=== PATIENT | female | born 1960 | race Caucasian/White ===

== ENCOUNTER 2024-06-02 15:21 | Outpatient (RCR) | payer BC, SELFPAY | END 2024-07-20 20:55 | disposition home or self-care (01) | LOC: OT 15:21 | PROVIDERS: PCP Nurse Practitioner; Visit Provider Nurse Practitioner Family | DX: M25.432 Effusion, left wrist (principal) | CPT/HCPCS: 97014; 97018; 97110; 97140; 97166; 97530 ==

== ENCOUNTER 2024-07-21 10:47 | Outpatient (RCR) | payer BC, SELFPAY | END 2024-07-22 15:15 | disposition home or self-care (01) | LOC: OT 10:47 | PROVIDERS: PCP Nurse Practitioner; Visit Provider Nurse Practitioner Family | DX: M25.432 Effusion, left wrist (principal) ==

== ENCOUNTER 2024-08-12 02:35 | Emergency (ER) | payer BC, SELFPAY ==
[2024-08-12] VITALS (22 sets, daily range): BP systolic 134–151; BP diastolic 78–86; PULSE 90–103; TEMP 36.6; O2SAT 88–99; BMI 21.1
--- OUTSIDE RECORDS SUMMARY | 2024-08-12 02:43 | XMS_ITS | CCD ---
Author Organization [facility] Team Providers Care Manager Etl Name Role Phone YOLA HERR Admitting Unavailable HERR, YOLA Attending Unavailable HERR, YOLA Primary Care Unavailable ED DIXON Consulting Unavailable HERR, YOLA Consulting Unavailable HERR, YOLA Admitting Unavailable HERR, YOLA Attending Unavailable HERR, YOLA Primary Care Unavailable MAX, DR IRVING Bacon Consulting Unavailable Ziebjorgito, DR Rivera Consulting Unavailable HERR, YOLA Consulting Unavailable HERR, YOLA Admitting Unavailable HERRYOLA Attending Unavailable HERR, YOLA Primary Care Unavailable HERR, YOLA Consulting Unavailable HERR, YOLA Admitting Unavailable HERR, YOLA Attending Unavailable HERR, YOLA Primary Care Unavailable YOLA HERR Attending Unavailable YOLA HERR Referring Unavailable KORI HERRE Hernando Primary Care Unavailable Nemesio, RODYC Yola Villagomez Primary Care Provider MD Apurva Martinez Emergency Provider MD Randell Ledbetter Emergency Provider Yola Herr Primary Care Unavailable Randell Ledbetter Attending Unavailable Randell Ledbetter Admitting Unavailable Apurva Martinez Admitting Unavailable Yola Herr Primary Care Unavailable Apurva Martinez Attending Unavailable Yola Ureña Unavailable Unallocated , Noms Provider Primary Care Provi jany Nemesio CUSHION PADDER-Yola SALAMANCA Primary Care Provid er YOLA HERR Referring Unavailable YOLA HERR Primary Care Unavailable YOLA HERR Referring Unavailable YOLA HERR Primary Care Unavailable YOLA HERR Referring Unavailable YOLA HERR Primary Care Unavailable YOLA HERR Referring Unavailable YOLA HERR Primary Care Unavailable Unallocated Hubert BRADLEYs Provider Primary Care Brooki jany CARMEN YAP Attending Unavailable FRACISCO, CARMEN Jacinto Attending Unavailable CARMEN YAP Referring Unavailable ISABELLA LOZOYA Attending Unavailable CARMEN YAP Referring Unavailable CARMEN YAP Attending Unavailable ISBAELLA LOZOYA Attending Unavailable CARMEN YAP Attending Unavailable ISABELLA LOZOYA Attending Unavailable IRENE FENG Attending Unavailable IRENE FENG Referring Unavailable Medications Current Medications Medication Drug Class(es) Dates Sig (Normalized) Sig (Original) amLODIPine 10 mg / benazepril hydrochloride 40 mg oral capsule (20 sources) Dihydropyridine Calcium Channel Susu, Angiotensin Converting Enzyme Inhibitor Start: 06-14-2024 take 1 capsule by mouth once in the morning amLODIPine-benaz epril (LOTREL) 10-40 mg per capsule Indications: Benign essential HTN TAKE 1 CAPSULE BY MOUTH IN THE MORNING 90 capsule 1 06/14/2024 Active Start: 03-24-2024 take 1 capsule by [facility] once daily Amlodipine-Benazepril Active 1 CAP PO Daily March 24, 2024 12:00am Start: 11-17-2023 amLODIPine-dania azepril (Lotrel) 10-40 MG capsule 1 capsule 11/17/2023 Active Start: 11-17-2023 End: 06-14-2024 take 1 capsule by mouth once in the morning amLODIPine-benazepril (LOTREL) 10-40 mg per capsule Indications: Benign essential HTN take 1 capsule by mouth in the morning 90 capsule 1 11/17/2023 06/14/2024 Discontinued betamethasone 0.5 mg/ml topical cream (19 sources) Corticosteroid Start: 04-12-2024 betamethasone dipropionate 0.05 % cream Indications: Allergic contact dermatitis, unspecified trigger Apply to affected areas, up to twice a day when flared, do not use one the face, groin, or underarms, 30 day supply 45 g 2 04/12/2024 Active cephalexin 500 mg oral capsule (2 sources) Cephalosporin Antibacterial Start: 03-24-2024 take 500 mg by mouth every six hours Cephalexin Active 500 MG PO Every 6 hours 07 12March 24, 2024 12:00am escitalopram 20 mg oral tablet (20 sources) Serotonin Reuptake Inhibitor Start: 06-14-2024 take 1 tablet by mouth once daily escitalopram (LEXAPRO) 20 mg tablet Indications: Anxiety and depression TAKE 1 TABLET BY MOUTH DAILY 90 tablet 1 06/14/2024 Active Start: 11-17-2023 End: 06-14-2024 escitalopram (Lexapro) 20 MG tablet Daily 11/17/2023 Active fluocinonide 1 mg/ml topical cream (1 source) Corticosteroid Start: 03-28-2024 Fluocinonide Active 1 APPLIC TOPICAL Twice daily March 28, 2024 12:00am fluticasone propionate 0.05 mg/actuat metered dose nasal spray (1 source) Corticosteroid Start: 04-19-2019 take 1 spray(s) nasal route once daily fluticasone propionate (FLONASE) 50 mcg/actuation nasal spray Indications: Pharyngitis, unspecified etiology Administer 1 spray into each nostril daily. 15.8 mL 2 04/19/2019 Active ibuprofen 800 mg oral tablet (20 sources) Nonsteroidal Anti-inflammatory Drug Start: 07-29-2022 ibuprofen 800 MG tablet Every 8 hours 03/28/2024 Active predniSONE 20 mg oral tablet (1 source) Start: 07-22-2024 End: 07-31-2024 take 2 tablets by mouth once daily, then take 1 tablet by mouth once daily at mealtime predniSONE (Deltasone) 20 MG tablet Indications: Polyarthralgia , Effusion of left knee Take 2 tablets (40 mg) by mouth Daily for 5 days, THEN 1 tablet (20 mg) Daily for 5 days. Take with food. 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) Apply 1 application topically Daily Apply to hands once a day until clear then prn for flares/30 days 60 g 11 06/10/2024 Active Start: 05-11-2024 End: 06-10-2024 Tapinarof (Vtama) 1 % cream Indications: Rash and other nonspecific skin eruption Apply 1 application topically Daily Apply to affected areas on the trunk and extremities 60 g 1 05/11/2024 06/10/2024 Discontinued (Reorder) Start: 05-11-2024 Tapinarof (Vta ma) 1 % cream Indications: Rash and other nonspecific skin eruption Apply 1 application topically Daily Apply to affected areas on the trunk and extremities 60 g 1 05/11/2024 Active Completed/Discontinued Medications Medication Drug Class(es) Dates Sig (Normalized) Sig (Original) acetaminophen 325 mg / oxyCODONE hydrochloride 5 mg oral tablet (6 sources) Opioid Agonist Start: End: oxyCODONE-acetaminophe n (Percocet) 5-325 MG tablet Daily at bedtime 03/28/2024 04/12/2024 Discontinued (Med list cleanup) 1 ml methylPREDNISolone acetate 40 mg/ml injection (20 sources) Corticosteroid Start: End: methylPREDNISolone acetate (DEPO-Medrol) injection 40 mg Start: 07-19-2024 End: 07-19-2024 40 mg, Intra-articular, Once PRN Procedure, Starting on Fri07/19/24 at 0300, For 1 dose Start: 05-24-2024 End: 07-19-2024 methylPREDNISolone (Medrol D ospak) 4 MG tablets Indications: Swelling of left wrist , Arthritis of left wrist Follow schedule on package instructions 21 tablet 05/24/2024 07/19/2024 Discontinued Start: 05-24-2024 methylPREDNISo lone (Medrol Dospak) 4 MG tablets Indications: Swelling of left wrist , Arthritis of left wrist Follow schedule on package instructions 21 tablet 05/24/2024 Active Start: 04-12-2024 End: 04-12-2024 methylPREDNISolone Acetate ( DEPO-Medrol) injection 20 mg Start: 04-12-2024 End: 04-12-2024 20 mg, Intra-articular, Once PRN Procedure, Starting on Fri04/12/24 at 0952, For 1 dose Start: 03-29-2024 End: 04-12-2024 methylPREDNISolone (Medrol D ospak) 4 MG tablets Indications: Swelling of left wrist , Arthritis of left wrist Follow schedule on package instructions 21 tablet 03/29/2024 04/12/2024 Discontinued (Med list cleanup) Start: 03-29-2024 methylPREDNISo lone (Medrol Dospak) 4 MG tablets Indications: Swelling of left wrist , Arthritis of left wrist Follow schedule on package instructions 21 tablet 03/29/2024 Active Problems Active Problems Problem Classification Problem Date Documented Date Episodic/Chronic Allergic reactions (2 sources) Allergic contact dermatitis; Translations: [Allergic contact dermatitis, unspecified cause] 04-12-2024 Episodic Anxiety disorders (6 sources) Anxiety disorder, unspecified; Translations: [Anxiety] Onset: 02-20-2017 03-24-2024 Chronic Essential hypertension (7 sources) Essential (primary) hypertension; Translations: [Hypertensive disorder] Onset: 02-24-2017 03-24-2024 Chronic Menopausal disorders (1 source) Menopausal syndrome; Translations: [Menopausal and female climacteric states] Onset: 07-25-2018 07-25-2018 Chronic Mood disorders (1 source) Depression Onset: 12-02-2023 Chronic Osteoarthritis (14 sources) Arthritis of first carpometacarpal joint of left hand; Translations: [Unilateral primary osteoarthritis of first carpometacarpal joint, left hand] 04-19-2024 Chronic Other bone disease and musculoskeletal deformities (1 source) Other specified disorders of bone density and structure, right thigh; Translations: [OTH D/O BONE DEN STRUCT RT THIGH] Onset: 07-01-2022 Episodic Other connective tissue disease (1 source) Other specified soft tissue disorders; Translations: [Other specified soft tissue disorders] Onset: 03-24-2024 Episodic Other connective tissue disease (2 sources) Ganglion cyst of left wrist; Translations: [Ganglion, left wrist] 05-24-2024 Episodic Other inflammatory condition of skin (2 sources) Pustular psoriasis of palm of hand; 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 Other non-traumatic joint disorders (2 sources) Swelling of wrist joint; Translations: [Effusion, left wrist] 03-24-2024 Episodic Other non-traumatic joint disorders (4 sources) Effusion, left wrist; Translations: [Effusion of joint, forearm] 03-24-2024 Episodic Other non-traumatic joint disorders (1 source) Pain in wrist; Translations: [Pain in left wrist] 03-28-2024 Episodic Other non-traumatic joint disorders (1 source) Pain in left wrist; Translations: [Pain in left wrist] Onset: 03-28-2024 Episodic Other non-traumatic joint disorders (8 sources) Pain of left wrist; Translations: [Pain in left wrist] 04-19-2024 Episodic Other non-traumatic joint disorders (10 sources) Swelling of upper limb; Translations: [Effusion, left wrist] 04-19-2024 Episodic Other non-traumatic joint disorders (2 sources) Pain in left knee; Translations: [Pain in joint, lower leg] 07-18-2024 Episodic Other non-traumatic joint disorders (3 sources) Effusion of joint of left knee; Translations: [Effusion, left knee] 07-19-2024 Episodic Other non-traumatic joint disorders (3 sources) Multiple joint pain; Translations: [Pain in unspecified joint] 07-19-2024 Episodic Other screening for suspected conditions (not mental disorders or infectious disease) (6 sources) Encounter for screening mammogram for malignant neoplasm of breast; Translations: [Patient encounter status] Onset: 07-25-2018 07-25-2018 Episodic Other skin disorders (1 source) Vesicular eczema; Translations: [Dyshidrosis [pompholyx]] 03-28-2024 Episodic Other skin disorders (2 sources) Eruption; Translations: [Rash and other nonspecific skin eruption] 05-03-2024 Episodic Residual codes; unclassified (5 sources) Asymptomatic menopausal state; Translations: [ASYMPTOMATIC MENOPAUSAL STATE] Onset: 06-27-2022 Episodic Residual codes; unclassified (1 source) Family history of malignant neoplasm of other respiratory and intrathoracic organs; Translations: [FAM HX MAL NEOPLSM OTH RESP AND IT ORGN] Onset: 07-01-2022 Episodic Residual codes; unclassified (1 source) Family history of malignant neoplasm of digestive organs; Translations: [FAM HX MALIG NEOPLASM DIGESTIV ORGN] Onset: 07-01-2022 Episodic Residual codes; unclassified (1 source) Family history of malignant neoplasm of other organs or systems; Translations: [FAM HX MALIG NEOPLASM OTH ORGN/SYS] Onset: 07-01-2022 Episodic Residual codes; unclassified (1 source) Tobacco use; Translations: [TOBACCO USE] Onset: 06-19-2022 Episodic Skin and subcutaneous tissue infections (2 sources) Cellulitis of left upper limb; Translations: [Cellulitis of left upper limb] 03-24-2024 Episodic Spondylosis; intervertebral disc disorders; other back problems (1 source) Spondylosis without myelopathy or radiculopathy, lumbosacral region; Translations: [SPONDYLS W/O MYELO-/RADICULOP LS] Onset: 12-14-2021 Chronic Substance-related disorders (5 sources) Nicotine dependence, cigarettes, uncomplicated; Translations: [NICOTINE DEPEND CIGARETTES UNCOMP] Onset: 06-14-2022 Chronic Unclassified (2 sources) Effusion of joint of left knee 07-20-2024 Past or Other Problems Problem Classification Problem Date Documented Da te Episodic/Chronic Mood disorders (2 sources) Mood disorders; Translations: [Depression, unspecified] Onset: 02-20-2017 12-02-2023 Other connective tissue disease (1 source) Pain in right leg; Translations: [PAIN IN RIGHT LEG] Onset: 12-14-2021 Episodic Residual codes; unclassified (1 source) Tobacco use and exposure - finding; Translations: [Tobacco use] Onset: 07-25-2018 07-25-2018 Episodic Residual codes; unclassified (1 source) Menopause present; Translations: [Asymptomatic menopausal state] Onset: 08-30-2019 08-30-2019 Episodic Screening and history of mental health and substance abuse codes (1 source) Personal history of nicotine dependence; Translations: [Personal history of nicotine dependence] Onset: 01-23-2024 Episodic Spondylosis; intervertebral disc disorders; other back problems (4 sources) Radiculopathy, lumbar region; Translations: [RADICULOPATHY LUMBAR REGION] Onset: 12-10-2021 Episodic Unclassified (1 source) Onset: 12-02-2023 12-02-2023 Results Test Name Value Interpretation Reference Range Facility XR Knee - left 1 or 2 Viewso n 07-20-2024 Imaging Result: AP and Lateral Left knee weight bearing. No acute fracture or dislocation. Large effusion Joint space narrowing medial compartment near symmetric to right knee. Impression: no acute bony process with joint space narrowing and large joint effusion [facility] No Panel Informationon 07-19 LACEY Jimenez 07/20/2024 9:04 AM L Inj/Asp: L knee on 07/19/2024 3:00 AM Indications: pain, joint swelling and diagnostic evaluation Details: 22 G needle, anterolateral approach Medications: 40 mg methylPREDNISolone acetate 40 MG/ML Aspirate: 16 mL cloudy and yellow (Unable to see through. ) Outcome: tolerated well, no immediate complications UTILIZING ASEPTIC TECHNIQUE LEFT KNEE JOINT ASPIRATION PREFORMED, NO CORTISONE GIVEN WITH JOINT APPEARING CLOUDY, NEUROVASC INTACT S/P INJ, TOLERATED WELL Procedure, treatment alternatives, risks and benefits explained, specific risks discussed. Consent was given by the patient. Patient was prepped and draped in the usual sterile fashion. [facility] XR Knee - left 1 or 2 Viewso n 07-19-2024 Radiology Study observation (narrative) [facility] DEXA SCAN CENTRAL SKELETALon 07-05-2024 DEXA SCAN CENTRAL SKELETAL DEXA SCAN CENTRAL SKELETAL CLINICAL INFORMATION: Encounter for screening for osteoporosis; Asymptomatic menopausal state. , Post menopausal, TECHNIQUE: Dual X-ray Absorptiometry (DXA) was performed. COMPARISON: No relevant prior studies available. FINDINGS: LUMBAR SPINE (L2-L4): BMD is 0.94 gm/cm2. T-score is -2.2. LEFT FEMORAL NECK: BMD is 0.78 gm/cm2. T-score is -1.9. LEFT TOTAL FEMUR: BMD is 0.78 gm/cm2. T-score is -1.8. RIGHT FEMORAL NECK: BMD is 0.79 gm/cm2. T-score is -1.8. RIGHT TOTAL FEMUR: BMD is 0.73 gm/cm2. T-score is -2.2. The estimated 10-year probability for a major osteoporotic fracture (utilizing FRAX) is 17.2% and for a hip fracture is 3.8%. IMPRESSION: The exam is considered to be osteopenic by the National Osteoporosis Foundation guidelines. Recommend consideration for initiation of therapy. WHO CLASSIFICATION: Normal: T-score -1.0 or above Osteopenia: T-score -1.1 to < 2.5 Osteoporosis: T-score -2.5 or lower Secondary causes of bone loss should be evaluated if clinically indicated since the etiology of low BMD cannot be determined by BMD measurement alone. The current National Osteoporosis Foundation guide recommends treating patients with FRAX ten year risk scores of greater than or equal to 3% for hip fracture or greater than or equal to 20% for major osteoporotic fracture, to reduce their fracture risk. Finalized by Rito Marquez MD on 07/05/2024 4:41 PM Normal [facility] No Panel Informationon 05-03 Type of biopsy: tangential Informed consent: discussed and consent obtained Informed consent comment: The risks and benefits of the biopsy were discussed. Risks include but are not limited to bleeding, infection, scarring, pain, and nerve damage. An opportunity to ask questions prior to the procedure was permitted and all questions were answered. Patient was prepped and draped in usual sterile fashion: area cleansed with alcohol. Anesthesia: the lesion was anesthetized in a standard fashion Anesthetic: 1% lidocaine w/ epinephrine 1-100,000 buffered w/ 8.4% NaHCO3 Instrument used: DermaBlade Hemostasis achieved with: electrodesiccation Outcome: patient tolerated procedure well Outcome comment: The specimen was placed in a prelabeled formalin container to be sent for pathology Post-procedure details: sterile dressing applied and wound care instructions given Post-procedure details comment: Emphasized need to contact clinic for any signs of infection, uncontrollable bleeding, or complications. Dressing type: bandage Additional details: Photo taken yes Amount of lidocaine used: 0.6 cc The Micro XR Wrist - left 3 Viewson Imaging Result: April 12, 2024 x-rays AP lateral and oblique of the left wrist demonstrate dorsal plate fixation of the distal radius. The plate is intact without signs of loosening or failure. On the oblique/ [facility] view there is marked sclerosis at the base of the trapezium at the scaphoid trapezial joint. The joint is narrowed and drng-sw-homc is noted. Impression: Pantrapezial arthritis, healed distal radius fracture. Max Preciado D.O. G3 XR Wrist - left 3 ViewsOrder ed By: Gray Preciado on 04-13-2024 G3 Work Phone: No Panel Informationon 04-12 Carmen Yap NP 04/14/2024 8:04 AM S Inj/Asp: L thumb [facility] on 04/12/2024 9:52 AM Details: 25 G needle Medications: 20 mg methylPREDNISolone Acetate 20 MG/ML Procedure, treatment alternatives, risks and benefits explained, specific risks discussed. Consent was given by the patient. [facility] Micro XR Wrist - left 3 Viewson Radiology Study observation (narrative) [facility] Automated basophil %Ordered By: Randell Ledbetter on 03-28-2024 Basophils/100 WBC (Bld) 0.7 % Normal . [facility] Comment on above: Performed By: #### E SR, CBC #### [address] Automated basophil countOrde red By: Randell Ledbetter on 03-28-2024 Basophils (Bld) [#/Vol] 0.1 10*3/uL Normal 0.0-0.2 [facility] Comment on above: Performed By: #### E SR, CBC #### [address] Automated blood monocyte cou ntOrdered By: Randell Ledbetter on 03-28-2024 Monocytes (Bld) [#/Vol] 0.5 10*3/uL Normal 0.0-0.8 [facility] Comment on above: Performed By: #### E SR, CBC #### [address] Automated eosinophil %Ordere d By: Randell Ledbetter on 03-28-2024 Eosinophils/100 WBC (Bld) 1.5 % Normal . [facility] Comment on above: Performed By: #### E SR, CBC #### [address] Automated eosinophil countOr dered By: Randell Ledbetter on 03-28-2024 Eosinophils (Bld) [#/Vol] 0.1 10*3/uL Normal 0.0-0.45 [facility] Comment on above: Performed By: #### E SR, CBC #### [address] Automated monocyte %Ordered By: Randell Ledbetter on 03-28-2024 Monocytes/100 WBC (Bld) 5.8 % Normal . [facility] Comment on above: Performed By: #### E SR, CBC #### [address] Automated neutrophil %Ordere d By: Randell Ledbetter on 03-28-2024 Neutrophils/100 WBC (Bld) 66.0 % Normal . [facility] Comment on above: Performed By: #### E SR, CBC #### [facility] [address] [place] [address] Complete Blood Count Auto Di ffon 03-28-2024 Mean Corpuscular HGB Conc 34.4 g/dL Normal 32.0-35.0 [facility] Comment on above: Performed By: #### E SR, CBC #### [facility] [address] [place] [address] Monocytes/100 WBC (Bld) 19.87 % Normal 0.00-20.00 [facility] Comment on above: Performed By: #### E SR, CBC #### [facility] [address] [place] [address] NRBC% 0.1 /100{WBC} Normal 0-0.5 [facility] Comment on above: Performed By: #### E SR, CBC #### [facility] [address] [place] [address] ECG 12 lead ECGon 03-28-2024 ECG 12 lead ECG [facility] [place] [address] Electrocardiograph Report Signed Patient: Carla Irby MR#: [id number] [birth year] : 1960 Acct:[id number] Age/Sex: 64 / F ADM Date: 03/28/24 Loc: ER Room: Type: [facility] ER Attending Dr: Ordering Provider: Randell Ledbetter MD Date of Service: 03/28/2403/13/1414 ECG/ECG 12 lead ECG: Skin/Abscess/Foreign Body Copies to: Test Reason : Blood Pressure : */* mmHG Vent. Rate : 71 BPM Atrial Rate : 71 BPM P-R Int : 204 ms QRS Dur : 86 ms QT Int : 392 ms P-R-T Axes : 54 32 25 degrees QTcB Int : 425 ms Normal sinus rhythm Cannot rule out Anterior infarct , age undetermined Abnormal ECG No previous ECGs available Confirmed by RANDELL LEDBETTER MD ([id number]) on 03/28/2024 3:51:43 PM Referred By: Electronically Signed By: RANDELL LEDBETTER MD Transcribed By: MUS Signed By Randell Ledbetter MD 03/13 1551 Normal [facility] Erythrocyte Sedimentation Ra urmila 03-28-2024 ESR (Bld) [Velocity] 20 mm/h Normal 0-29 [facility] Comment on above: Result Comment: PERF ORMED BY: [place] [address] PATHOLOGIST SOCIETY EDITOR NAFISA LO M.D. Performed By: #### E SR, CBC #### [address] Erythrocyte distribution wid th [Ratio] by Automated countOrdered By: Randell Ledbetter on 03-28-2024 Erythrocyte distribution width (RBC) [Ratio] 13.1 % Normal 11.9-15.3 [facility] Comment on above: Performed By: #### E SR, CBC #### [facility] [address] [place] [address] Erythrocyte sedimentation ra te by Photometric methodOrdered By: Randell Ledbetter on 03-28-2024 ESR Photometric method (Bld) [Velocity] 20 mm/hr 0-29 [facility] Erythrocytes [#/volume] in B lood by Automated countOrdered By: Randell Ledbetter on 03-28-2024 RBC (Bld) [#/Vol] 4.48 10*6/uL Normal 3.60-5.00 [facility] Comment on above: Performed By: #### E SR, CBC #### [address] Hematocrit [Volume Fraction] of Blood by Automated countOrdered By: Randell Ledbetter on 03-28-2024 Hematocrit (Bld) [Volume fraction] 37.9 % Normal 34.0-46.4 [facility] Comment on above: Performed By: #### E SR, CBC #### [address] Hemoglobin [Mass/volume] in BloodOrdered By: Randell Ledbetter on 03-28-2024 Hemoglobin (Bld) [Mass/Vol] 13.0 g/dL Normal 11.8-15.4 [facility] Comment on above: Performed By: #### E SR, CBC #### [address] Leukocytes [#/volume] correc amada for nucleated erythrocytes in Blood by Automated counOrdered By: Randell Ledbetter on 03-28-2024 WBC corrected for nucl RBC Auto (Bld) [#/Vol] 8.0 10*3/uL 3.8-11.6 [facility] Leukocytes [#/volume] in Blo od by Automated countOrdered By: Randell Ledbetter on 03-28-2024 WBC (Bld) [#/Vol] 8.0 10*3/uL Normal 3.8-11.6 [facility] Comment on above: Performed By: #### E SR, CBC #### [address] Lymphocytes [#/volume] in Bl ood by Automated countOrdered By: Randell Ledbetter on 03-28-2024 Lymphocytes (Bld) [#/Vol] 2.1 10*3/uL Normal 1.00-4.8 [facility] Comment on above: Performed By: #### E SR, CBC #### [address] Lymphocytes/100 leukocytes i n Blood by Automated countOrdered By: Randell Ledbetter on 03-28-2024 Lymphocytes/100 WBC (Bld) 26.0 % Normal . [facility] Comment on above: Performed By: #### E SR, CBC #### [address] MCH [Entitic mass] by Automa amada countOrdered By: Randell Ledbetter on 03-28-2024 MCH (RBC) [Entitic mass] 29.1 pg Normal 24.7-34.3 [facility] [facility] Comment on above: Performed By: #### E SR, CBC #### [address] MCHC Auto (RBC) [Mass/Vol]Or dered By: Randell Ledbetter on 03-28-2024 MCHC (RBC) [Mass/Vol] 34.4 g/dL 32.0-35.0 [facility] MCV [Entitic volume] by Auto mated countOrdered By: Randell Ledbetter on 03-28-2024 MCV (RBC) [Entitic vol] 84.7 fL Normal 80-100 F [facility] Comment on above: Performed By: #### E SR, CBC #### [facility] [address] [place] [address] Monocyte distribution width [Entitic volume] in Blood by AutomatedOrdered By: Randell Ledbetter on 03-28-2024 Monocyte distribution width Auto (Bld) [Entitic vol] 19.87 % 0.00-20.00 [facility] Neutrophils [#/volume] in Bl ood by Automated countOrdered By: Randell Ledbetter on 03-28-2024 Neutrophils (Bld) [#/Vol] 5.3 10*3/uL Normal 1.8-7.7 [facility] Comment on above: Performed By: #### E SR, CBC #### [address] Nucleated erythrocytes [Pres ence] in Blood by Automated countOrdered By: Randell Ledbetter on 03-28-2024 Nucleated RBC Auto Ql (Bld) 0.1 /100{WBC} 0-0.5 [facility] Platelet mean volume [Entiti c volume] in Blood by Automated countOrdered By: Randell Ledbetter on 03-28-2024 Platelet mean volume (Bld) [Entitic vol] 7.4 fL Normal 6.3-10.7 [facility] Comment on above: Performed By: #### E SR, CBC #### [facility] [address] [place] [address] Platelets [#/volume] in Bloo d by Automated countOrdered By: Randell Ledbetter on 03-28-2024 Platelets (Bld) [#/Vol] 327 10*3/uL Normal 150-450 [facility] Comment on above: Performed By: #### E SR, CBC #### [facility] [address] [place] [address] Automated basophil %Ordered By: Apurva Martinez on 03-24-2024 Basophils/100 WBC (Bld) 0.5 % Normal . [facility] Comment on above: Performed By: #### E SR, CBC, CRP, BMP #### [address] Automated basophil countOrde red By: Apurva Martinez on 03-24-2024 Basophils (Bld) [#/Vol] 0.0 10*3/uL Normal 0.0-0.2 [facility] Comment on above: Performed By: #### E SR, CBC, CRP, BMP #### [address] Automated blood monocyte cou ntOrdered By: Apurva Martinez on 03-24-2024 Monocytes (Bld) [#/Vol] 0.6 10*3/uL Normal 0.0-0.8 [facility] Comment on above: Performed By: #### E SR, CBC, CRP, BMP #### [address] Automated eosinophil %Ordere d By: Apurva Martinez on 03-24-2024 Eosinophils/100 WBC (Bld) 1.4 % Normal . [facility] Comment on above: Performed By: #### E SR, CBC, CRP, BMP #### [address] Automated eosinophil countOr dered By: Apurva Martinez on 03-24-2024 Eosinophils (Bld) [#/Vol] 0.1 10*3/uL Normal 0.0-0.45 [facility] Comment on above: Performed By: #### E SR, CBC, CRP, BMP #### [address] Automated monocyte %Ordered By: Apurva Martinez on 03-24-2024 Monocytes/100 WBC (Bld) 6.5 % Normal . [facility] Comment on above: Performed By: #### E SR, CBC, CRP, BMP #### [address] Automated neutrophil %Ordere d By: Apurva Martinez on 03-24-2024 Neutrophils/100 WBC (Bld) 72.6 % Normal . [facility] Comment on above: Performed By: #### E SR, CBC, CRP, BMP #### [address] Basic Metabolic Panelon Creatinine Clr Calc Pharmacy 98.37 Normal [facility] Comment on above: Performed By: #### E SR, CBC, CRP, BMP #### [address] GFR/1.73 sq M.predicted MDRD (S/P/Bld) [Vol rate/Area] mL/min/{1.73_m2} Normal [facility] Comment on above: Performed By: #### E SR, CBC, CRP, BMP #### [address] C reactive protein [Mass/vol ume] in Serum or PlasmaOrdered By: Apurva Martinez on 03-24-2024 CRP [Mass/Vol] 2.8 mg/dL High 0.0-0.5 [facility] C-Reactive Proteinon 024 C-Reactive Protein 2.8 mg/dL High 0.0-0.5 [facility] Comment on above: Result Comment: PERF ORMED BY: [place] [address] PATHOLOGIST SOCIETY EDITOR NAFISA OL M.D. Performed By: #### E SR, CBC, CRP, BMP #### [address] Calcium [Mass/volume] in Ser um or PlasmaOrdered By: Apurva Martinez on 03-24-2024 Calcium [Mass/Vol] 8.6 mg/dL Normal 8.6-10.3 [facility] Comment on above: Performed By: #### E SR, CBC, CRP, BMP #### [address] Carbon dioxide, total [Moles /volume] in Serum or PlasmaOrdered By: Apurva Martinez on 03-24-2024 CO2 [Moles/Vol] 26.6 mmol/L Normal 21.0-31.0 [facility] Comment on above: Performed By: #### E SR, CBC, CRP, BMP #### [address] Chloride [Moles/volume] in S shruthi or PlasmaOrdered By: Apurva Martinez on 03-24-2024 Chloride [Moles/Vol] 107 mmol/L Normal 98-107 [facility] Comment on above: Performed By: #### E SR, CBC, CRP, BMP #### [address] Complete Blood Count Auto Di ffon 03-24-2024 Mean Corpuscular HGB Conc 33.7 g/dL Normal 32.0-35.0 [facility] Comment on above: Performed By: #### E SR, CBC, CRP, BMP #### [address] Monocytes/100 WBC (Bld) 17.82 % Normal 0.00-20.00 [facility] Comment on above: Performed By: #### E SR, CBC, CRP, BMP #### [address] NRBC% 0.1 /100{WBC} Normal 0-0.5 [facility] Comment on above: Performed By: #### E SR, CBC, CRP, BMP #### [address] Creatinine [Mass/volume] in Serum or PlasmaOrdered By: Apurva Martinez on 03-24-2024 Creatinine [Mass/Vol] 0.60 mg/dL Normal 0.60-1.20 [facility] Comment on above: Performed By: #### E SR, CBC, CRP, BMP #### [address] Erythrocyte Sedimentation Ra urmila 03-24-2024 ESR (Bld) [Velocity] 16 mm/h Normal 0-29 [facility] Comment on above: Result Comment: PERF ORMED BY: [place] [address] PATHOLOGIST SOCIETY EDITOR NAFISA LO M.D. Performed By: #### E SR, CBC, CRP, BMP #### [facility] [address] Erythrocyte distribution wid th [Ratio] by Automated countOrdered By: Apurva Martinez on 03-24-2024 Erythrocyte distribution width (RBC) [Ratio] 13.3 % Normal 11.9-15.3 [facility] Comment on above: Performed By: #### E SR, CBC, CRP, BMP #### [facility] [address] Erythrocyte sedimentation ra te by Photometric methodOrdered By: Apurva Martinez on 03-24-2024 ESR Photometric method (Bld) [Velocity] 16 mm/hr 0-29 [facility] Erythrocytes [#/volume] in B lood by Automated countOrdered By: Apurva Martinez on 03-24-2024 RBC (Bld) [#/Vol] 4.45 10*6/uL Normal 3.60-5.00 [facility] Comment on above: Performed By: #### E SR, CBC, CRP, BMP #### [address] Glucose [Mass/volume] in Ser um or PlasmaOrdered By: Apurva Martinez on 03-24-2024 Glucose [Mass/Vol] 110 mg/dL High 70-100 [facility] Comment on above: ADA recommended refe rence rangeRandom Glucose Reference Range is dependent on time and content of last meal. Glucose of more than 200 mg/dL in a nonstressed, ambulatory subject supports the diagnosis of Diabetes Mellitus. Result Comment: [place] om Glucose Reference Range is dependent on time and content of last meal. Glucose of more than 200 mg/dL in a nonstressed, ambulatory subject supports the diagnosis of Diabetes Mellitus. ADA recommended reference range Performed By: #### E SR, CBC, CRP, BMP #### [address] Hematocrit [Volume Fraction] of Blood by Automated countOrdered By: Apurva Martinez on 09-04-2024 Hematocrit (Bld) [Volume fraction] 38.1 % Normal 34.0-46.4 [facility] Comment on above: Performed By: #### E SR, CBC, CRP, BMP #### [address] Hemoglobin [Mass/volume] in BloodOrdered By: Apurva Martinez on 03-24-2024 Hemoglobin (Bld) [Mass/Vol] 12.8 g/dL Normal 11.8-15.4 [facility] Comment on above: Performed By: #### E SR, CBC, CRP, BMP #### [address] Leukocytes [#/volume] correc amada for nucleated erythrocytes in Blood by Automated counOrdered By: Apurva Martinez on 03-24-2024 WBC corrected for nucl RBC Auto (Bld) [#/Vol] 9.8 10*3/uL 3.8-11.6 [facility] Leukocytes [#/volume] in Blo od by Automated countOrdered By: Apurva Martinez on 03-24-2024 WBC (Bld) [#/Vol] 9.8 10*3/uL Normal 3.8-11.6 [facility] Comment on above: Performed By: #### E SR, CBC, CRP, BMP #### [address] Lymphocytes [#/volume] in Bl ood by Automated countOrdered By: Apurva Martinez on 03-24-2024 Lymphocytes (Bld) [#/Vol] 1.9 10*3/uL Normal 1.00-4.8 [facility] Comment on above: Performed By: #### E SR, CBC, CRP, BMP #### [address] Lymphocytes/100 leukocytes i n Blood by Automated countOrdered By: Apurva Martinez on 03-24-2024 Lymphocytes/100 WBC (Bld) 19.0 % Normal . [facility] Comment on above: Performed By: #### E SR, CBC, CRP, BMP #### [place] [address] [place] MCH [Entitic mass] by Automa amada countOrdered By: Apurva Martinez on 03-24-2024 MCH (RBC) [Entitic mass] 28.8 pg Normal 24.7-34.3 [facility] Comment on above: Performed By: #### E SR, CBC, CRP, BMP #### [facility] [address] [place] [address] MCHC Auto (RBC) [Mass/Vol]Or dered By: Apurva Martinez on 03-24-2024 MCHC (RBC) [Mass/Vol] 33.7 g/dL 32.0-35.0 [facility] MCV [Entitic volume] by Auto mated countOrdered By: Apurva Martinez on 03-24-2024 MCV (RBC) [Entitic vol] 85.6 fL Normal 80-100 F [facility] Comment on above: Performed By: #### E SR, CBC, CRP, BMP #### [facility] [address] [place] [address] Monocyte distribution width [Entitic volume] in Blood by AutomatedOrdered By: Apurva Martinez on 03-24-2024 Monocyte distribution width Auto (Bld) [Entitic vol] 17.82 % 0.00-20.00 [facility] Neutrophils [#/volume] in Bl ood by Automated countOrdered By: Apurva Martinez on 03-24-2024 Neutrophils (Bld) [#/Vol] 7.1 10*3/uL Normal 1.8-7.7 [facility] Comment on above: Performed By: #### E SR, CBC, CRP, BMP #### [facility] [address] [place] [address] No Panel InformationOrdered By: Apurva Martinez on 03-24-2024 Estimated GFR (CKD-EPI) > 60.0 mL/Min [facility] Creatinine Clearance (Chem 98.37 [facility] Nucleated erythrocytes [Pres ence] in Blood by Automated countOrdered By: Apurva Martinez on 03-24-2024 Nucleated RBC Auto Ql (Bld) 0.1 /100{WBC} 0-0.5 [facility] Platelet mean volume [Entiti c volume] in Blood by Automated countOrdered By: Apurva Martinez on 03-24-2024 Platelet mean volume (Bld) [Entitic vol] 7.5 fL Normal 6.3-10.7 [facility] Comment on above: Performed By: #### E SR, CBC, CRP, BMP #### [address] Platelets [#/volume] in Bloo d by Automated countOrdered By: Apurva Martinez on 03-24-2024 Platelets (Bld) [#/Vol] 313 10*3/uL Normal 150-450 [facility] Comment on above: Performed By: #### E SR, CBC, CRP, BMP #### [address] Potassium [Moles/volume] in Serum or PlasmaOrdered By: Apurva Martinez on 03-24-2024 Potassium [Moles/Vol] 3.8 mmol/L Normal 3.5-5.1 [facility] Comment on above: Performed By: #### E SR, CBC, CRP, BMP #### [address] Serum or plasma anion gap de terminationOrdered By: Apurva Martinez on 03-24-2024 Anion gap [Moles/Vol] 11.2 mmol/L Normal 6.0-15.0 [facility] Comment on above: Performed By: #### E SR, CBC, CRP, BMP #### [place] [address] [place] Sodium [Moles/volume] in Ser um or PlasmaOrdered By: Apurva Martinez on 03-24-2024 Sodium [Moles/Vol] 141 mmol/L Normal 136-145 [facility] Comment on above: Performed By: #### E SR, CBC, CRP, BMP #### [place] [address] [place] Urea nitrogen [Mass/volume] in Serum or PlasmaOrdered By: Apurva Martinez on 03-24-2024 Urea nitrogen [Mass/Vol] 19 mg/dL Normal 7-25 [facility] Comment on above: Performed By: #### E SR, CBC, CRP, BMP #### [facility] [address] [place] [id number] [facility] XR hand LT min 3V*on 024 XR hand LT min 3V* [facility] [place] [address] [place] [address] XRay Report Signed Patient: Carla Irby MR#: [id number] [birth year] : 1960 Acct:[id number] Age/Sex: 64 / F ADM Date: 03/24/24 Loc: ER Room: Type: [facility] ER Attending Dr: Copies to: Apurva Martinez MD Ordering Provider: Apurva Martinez MD Date of Service: 03/24/24 XR/XR hand LT min 3V*: Extremity Injury, Upper LEFT HAND - 3 views CLINICAL DATA: Posterior at the palmar aspect of the left hand with swelling and pain for the past month. COMPARISON: None AP, lateral and oblique views were obtained. Bony structures are osteopenic. There is a dorsal plate and screws at the distal radius. No acute fractures, dislocation or bony destruction are noted. There is no prominent joint space narrowing or hypertrophy at the hand though there is minor joint space narrowing at the lateral carpals along with subchondral cystic change. There is minor dorsal soft tissue swelling. No subcutaneous air or radiopaque foreign bodies are noted. XR/XR hand LT min 3V* IMPRESSION: NO ACUTE BONY FINDINGS. Impression dictated by: Lupis Dukes M.D.03/24/2024 4:26 PM Dictation Location: [place] [address] Transcribed By: [facility] 03/24/24 1626 Dictated By: Lupis Dukes MD 03/24/24 1624 Signed By: 03/24/24 1626 Normal [facility] CT LOW DOSE LUNG SCREENINGon 01-27-2024 CT LOW DOSE LUNG SCREENING CT LOW DOSE LUNG SCREENING CLINICAL INFORMATION: Screening visit: Personal history of tobacco use/personal history of nicotine dependence. Lung cancer screening. The patient is a current smoker. The patient has a 30 pack year history of smoking. COMPARISON: No relevant prior studies are available. TECHNIQUE: Low dose CT chest performed without contrast with coronal and sagittal and maximum intensity projection reconstructed images. Maximum intensity projection images generated to increase the sensitivity of pulmonary nodule detection. All CT scans at this facility use dose modulation, iterative reconstruction, and/or weight based dosing when appropriate to reduce radiation dose to as low as reasonably achievable. Automated exposure control was utilized. Computer aided detection for pulmonary nodules?was performed utilizing [employer] software.? FINDINGS: Diagnostic quality: Satisfactory Lung nodules: Biapical reticulonodular scarring. Lungs and pleural spaces: Centrilobular emphysema. Mediastinum: No mediastinal masses Heart size: Normal Coronary calcification: Mild Pericardial effusion: None Other findings: No enlarged lymph nodes IMPRESSION: 1. Lung Rads Category 1, no suspicious lung nodules. 2. Centrilobular emphysema. 3. Consider routine lung screening CT in one year. Finalized by Ekta Hendrickson MD on 01/27/2024 6:54 PM 1 LDCT 1 Yr Normal [facility] MAMM SCREENING BILATERAL W C medical doctor 01-23-2024 MAMM SCREENING BILATERAL W CAD MAMM SCREENING BILATERAL W CAD EXAM: MAMM SCREENING BILATERAL W CAD, 01/23/2024 9:15 AM CLINICAL INDICATIONS: Screening, Encounter for screening mammogram for malignant neoplasm of breast COMPARISON: 12/10/2014, 09/01/2014 TECHNIQUE: Bilateral digital tomosynthesis MLO and CC views of the breasts were obtained, with creation of synthetic 2D views. Computer aided detection was utilized. FINDINGS: There are scattered areas of fibroglandular density. There are no suspicious masses, calcifications, or areas of architectural distortion. IMPRESSION: No mammographic evidence of malignancy. BI-RADS: BI-RADS 1 - Negative Recommendation: Routine screening mammogram in 1 year. Finalized by Vandana Renae DO on 01/23/2024 9:43 AM 1 b MAMM 1 YR Normal [facility] MG MAMM SCREEN 3D EDGARDO CADon 06-27-2022 MG MAMM SCREEN 3D EDGARDO CAD Patient: CARLA IRBY Exam Date: 06/27/2022 : 1960 Gender:F Ordering : YOLA HERR Admission #: [id number] Family : Order #: [id number] CLICK HERE TO VIEW EXAM RADIOLOGY REPORT PROCEDURE: MAMMOGRAM SCREENING 3D BILATERAL CAD COMPARISON: MG MAMM SCREEN 3D EDGARDO CAD, 05/10/2021. INDICATIONS: Screening mammography Calculator Name NCI Breast Cancer Risk Assessment Tool 5 Year Breast Cancer Risk 1.10% Lifetime Breast Cancer Risk 5.00% Personal Breast Cancer No Personal Ovarian Cancer No Treatments None Family Cancers Father with throat cancer at age 46; Grandmother-maternal with colon cancer at age 60; Son with brain cancer at age 2. LOCATION: [facility] BREAST COMPOSITION: Scattered areas fibroglandular density. FINDINGS: DIAGNOSTIC CATEGORY 2--BENIGN FINDING. NO CHANGE FROM COMPARISON. Scattered benign-appearing nodules are present. Scattered benign-appearing calcifications are present. Scattered benign-appearing lymph nodes are present. RIGHT BREAST: No significant suspicious finding. LEFT BREAST: No significant suspicious finding. RECOMMENDATIONS: ROUTINE MAMMOGRAM AND CLINICAL EVALUATION IN 12 MONTHS. PLEASE NOTE: A NORMAL MAMMOGRAM DOES NOT EXCLUDE THE POSSIBILITY OF BREAST CANCER. A CLINICALLY SUSPICIOUS PALPABLE LUMP SHOULD BE BIOPSIED. Dictated by: Irving English MD on 06/28/2022 at 07:43 Approved by: Irving English MD on 06/28/2022 at 07:45 Normal [facility] XR DEXA BONE DENSITYon 06-27 XR DEXA BONE DENSITY EXAMINATION: XR DEX A BONE DENSITY, 06/27/2022 3:37 PM EST HISTORY: Menopause present COMPARISON: DEXA bone densitometry 03/30/2020 TECHNIQUE: Dual-energy X-ray absorptiometry (DEXA) bone density study performed for the axial skeleton. FINDINGS: SPINE ANALYSIS: Average bone mineral density is 1.0-4 g/cm2. T-score (standard deviation relative to young adult mean): -1.3 . +2.4% change since prior study. HIP ANALYSIS: Lowest bone mineral density is within the right femur, 0.710 g/cm2. T-score (standard deviation relative to young adult mean): -2.4 . -6.9% change since prior study. IMPRESSION: [employer] Classification: Osteopenia - Moderate Fracture Risk Electronically authenticated by: RIDDHI VELASCO Date: 2022-06-27 16:24 Normal [facility] CT LUNG CANCER SCREENINGon 08-14-2021 CT LUNG CANCER SCREENING EXAM: CT LUNG C ANCER SCREENING HISTORY: Tobacco dependence caused by cigarettes TECHNIQUE: Low-dose technique. No IV contrast Dose reduction techniques were achieved by using automated exposure control and/or adjustment of mA and/or kV according to patient size and/or use of iterative reconstruction technique. COMPARISON:Chest x-ray 04/09/2012 FINDINGS: THORACIC INLET: Unremarkable CHEST WALL/AXILLA: No axillary lymphadenopathy HEART: Heart size is normal. Mild calcification of the thoracic aorta. No aneurysm. Mild coronary artery calcification. No pericardial effusion MEDIASTINUM: No significant hilar or mediastinal lymphadenopathy PLEURAL CAVITY: No pleural effusion or thickening is noted. LUNGS: No lobar consolidation. Mild emphysematous changes most pronounced about the upper lobes. Mild biapical pleural parenchymal thickening most consistent with scarring. No significant pulmonary parenchymal nodules noted VISUALIZED UPPER ABDOMEN: Nondiagnostic due to low-dose technique and lack of intravenous contrast. BONES: Degenerative change thoracic spine. IMPRESSION:Lung RADS category 1-negative exam Recommendation: Continued annual low-dose screening CT chest Lung RADS category S-significant findings: Emphysema. Coronary calcification. Electronically authenticated by: ED DIXON Date: 2022-06-14 16:11 Normal [facility] CBC AUTO DIFFon 06-01-2022 BASO # 0.1 103/ul Normal 0.0-0.1 [facility] Comment on above: Performed By: #### C BC #### [facility] [address] [place] [address] Dr. Jose Polanco Basophils/100 WBC (Bld) 0.7 % Normal 0.2-2.[address] [facility] Comment on above: Performed By: #### C BC #### [facility] [address] [place] [address] Dr. Jose Polanco EO # 0.2 103/ul Normal 0.0-0.7 [facility] Comment on above: Performed By: #### C BC #### [facility] [address] [place] [address] Dr. Jose Polanco Eosinophils/100 WBC (Bld) 2.0 % Normal 0.9-7.0 [facility] Comment on above: Performed By: #### C BC #### [facility] [address] [place] [address] Dr. Jose Polanco Erythrocyte distribution width (RBC) [Ratio] 13.0 % Normal 11.0-15.0 [facility] Comment on above: Performed By: #### C BC #### [facility] [address] [place] [address] Dr. Jose Polanco Hematocrit (Bld) [Volume fraction] 44.3 % Normal 36.0-48.0 [facility] Comment on above: Performed By: #### C BC #### [facility] [address] [place] [address] Dr. Jose Polanco Hemoglobin (Bld) [Mass/Vol] 14.6 g/dL Normal 12.0-16.0 [facility] Comment on above: Performed By: #### C BC #### [facility] [address] [place] [address] Dr. Jose Polanco IG # 0.02 10e3/ul Normal 0.00-0.03 [facility] Comment on above: Performed By: #### C BC #### [facility] [address] [place] [address] Dr. Jose Polanco IG % 0.2 % Normal 0.0-0.5 [facility] Comment on above: Performed By: #### C BC #### [facility] [address] [place] [address] Dr. Jose Polanco LYMPH # 2.6 103/ul Normal 1.2-3.8 [facility] Comment on above: Performed By: #### C BC #### [facility] [address] [place] [address] Dr. Jose Polanco Lymphocytes/100 WBC (Bld) 27.8 % Normal 20.5-60.0 [facility] Comment on above: Performed By: #### C BC #### [facility] [address] [place] [address] Dr. Jose Polanco MANUAL DIFF REQ NO Normal [facility] Comment on above: Performed By: #### C BC #### [facility] [address] [place] [address] Dr. Jose Polanco MCH (RBC) [Entitic mass] 28.8 pg Normal 26.7-34.0 [facility] Comment on above: Performed By: #### C BC #### [facility] [address] [place] [address] [address] Jose Polanco MCHC (RBC) [Mass/Vol] 33.0 g/dL Normal 29.9-35.2 [facility] Comment on above: Performed By: #### C BC #### [facility] [address] [place] [address] Dr. Jose Polanco MCV (RBC) [Entitic vol] 87.4 fL Normal 81.0-99.[address] [facility] Comment on above: Performed By: #### C BC #### [facility] [address] [place] [address] Dr. Jose Polanco MONO # 0.5 103/ul Normal 0.3-0.8 [facility] Comment on above: Performed By: #### C BC #### [facility] [address] [place] [address] Dr. Jose Polanco Monocytes/100 WBC (Bld) 5.1 % Normal 1.7-12.[address] [facility] Comment on above: Performed By: #### C BC #### [facility] [address] [place] [address] Dr. Jose Polanco NEUT # 6.0 103/ul Normal 1.4-6.5 [facility] [facility] Comment on above: Performed By: #### C BC #### [facility] [address] [place] [address] Dr. Jose Polanco Neutrophils/100 WBC (Bld) 64.2 % Normal 43.0-75.0 [facility] Comment on above: Performed By: #### C BC #### [facility] [address] [place] [address] Dr. Jose Polanco Platelet mean volume (Bld) [Entitic vol] 9.1 fL Critically low 9.5-13.5 [facility] Comment on above: Performed By: #### C BC #### [facility] [address] [place] [address] Dr. Jose Polanco PLT 278 103/ul Normal 150-450 [facility] Comment on above: Performed By: #### C BC #### [facility] [address] [place], [place] [id number] Dr. Jose Polanco RBC 5.07 106/ul Normal 4.20-5.40 [facility] Comment on above: Performed By: #### C BC #### [facility] [address] [place] [address] Dr. Jose Polanco WBC 9.4 103/ul Normal 4.0-11.0 [facility] Comment on above: Performed By: #### C BC #### [facility] [address] [place] [address] Dr. Jose Polanco PROF 14(COMP METB)on 022 Albumin [Mass/Vol] 3.8 g/dL Normal 3.4-5.0 [facility] Comment on above: Performed By: #### C MP #### [facility] [address] [place] [address] Dr. Jose Polanco Albumin/Globulin [Mass ratio] 1.4 {ratio} Normal [facility] Comment on above: Performed By: #### C MP #### [facility] [address] [place] [address] Dr. Jose Polanco ALP [Catalytic activity/Vol] 94 U/L Normal 46-116 [facility] Comment on above: Performed By: #### C MP #### [facility] [address] [place] [address] Dr. Jose Polanco ALT [Catalytic activity/Vol] 24 U/L Normal 14-59 [facility] Comment on above: Performed By: #### C MP #### [facility] [address] [place] [address] Dr. Jose Polanco Anion gap [Moles/Vol] 9.5 mmol/L Normal [facility] Comment on above: Performed By: #### C MP #### [facility] [address] [place] [address] Dr. Jose Polanco AST [Catalytic activity/Vol] 11 U/L Critically low 15-37 [facility] Comment on above: Performed By: #### C MP #### [facility] [address] [place] [address] Dr. Jose Polanco Bilirubin [Mass/Vol] 0.5 mg/dL Normal 0.2-1.0 [facility] Comment on above: Performed By: #### C MP #### [facility] [address] [place] [address] Dr. Jose Polanco Calcium [Mass/Vol] 8.8 mg/dL Normal 8.5-10.1 [facility] Comment on above: Performed By: #### C MP #### [facility] [address] [place] [address] Dr. Jose Polanco Chloride [Moles/Vol] 105 mmol/L Normal 98-107 [facility] Comment on above: Performed By: #### C MP #### [facility] [address] [place] [address] Dr. Jose Polanco CO2 [Moles/Vol] 31.8 mmol/L Normal 21.0-32.0 [facility] Comment on above: Performed By: #### C MP #### [facility] [address] [place] [address] Dr. Jose Polanco Creatinine [Mass/Vol] 0.60 mg/dL Normal 0.55-1.02 [facility] Comment on above: Performed By: #### C MP #### [facility] [address] [place] [address] Dr. Jose Polanco EGFR-AF THAI >60 Normal >=60 [facility] Comment on above: Performed By: #### C MP #### [facility] [address] [place] [address] Dr. Jose Polanco EGFR-NON AF THAI >60 Normal >=60 [facility] Comment on above: Performed By: #### C MP #### [facility] [address] [place] [address] Dr. Jose Polanco Globulin (S) [Mass/Vol] 2.8 g/dL Normal [facility] Comment on above: Performed By: #### C MP #### [facility] [address] [place] [address] Dr. Jose Polanco Glucose [Mass/Vol] 94 mg/dL Normal 74-106 [facility] Comment on above: Performed By: #### C MP #### [facility] [address] [address] [address] Jose Polanco Potassium [Moles/Vol] 4.3 mmol/L Normal 3.5-5.1 [facility] Comment on above: Performed By: #### C MP #### [facility] [address] [address] [address] Jose Polanco Protein [Mass/Vol] 6.6 g/dL Normal 6.4-8.2 [facility] Comment on above: Performed By: #### C MP #### [facility] [address] [address] [address] Jose Polanco Sodium [Moles/Vol] 142 mmol/L Normal 136-145 [facility] Comment on above: Performed By: #### C MP #### [facility] [address] [address] [address] Jose Polanco Urea nitrogen [Mass/Vol] 12.0 mg/dL Normal 7.0-18.0 [facility] Comment on above: Performed By: #### C MP #### [facility] [address] [address] [address] Jose Polanco Urea nitrogen/Creatinine [Mass ratio] 20.0 mg/mg Normal [facility] Comment on above: Performed By: #### C MP #### [facility] [address] [address] [address] Jose Polanco Vital Signs Date Time Vital Sign Value Performing Clinician Facility 07-19-2024 14:16-050 Body height 167.6 cm Irene RAHMAN Work Phone: [facility] 07-19-2024 14:16-0500 Body mass index (BMI) [Ratio] 27.44 kg/m2 Irene RAHMAN Work Phone: [facility] 07-19-2024 14:16-0500 Body weight 77.11 kg Irene RAHMAN Work Phone: [facility] 03-28-2024 15:43-0400 Body temperature 98.3 [degF] OXYGEN THERAPY TEACHER-C Yola Herr Work Phone: [facility] 03-28-2024 15:43-0400 Diastolic blood pressure 80 mm[Hg] OXYGEN THERAPY TEACHER-C Yola Herr Work Phone: [facility] 03-28-2024 15:43-0400 Heart rate 76 /min OXYGEN THERAPY TEACHER-C Yola Herr Work Phone: [facility] 03-28-2024 15:43-0400 Respiratory rate 16 /min OXYGEN THERAPY TEACHER-C Yola Herr Work Phone: [facility] 03-28-2024 15:43-0400 SaO2% (BldA) [Mass fraction] 95 % OXYGEN THERAPY TEACHER-C Yola Herr Work Phone: [facility] 03-28-2024 15:43-0400 Systolic blood pressure 144 mm[Hg] OXYGEN THERAPY TEACHER-C Yola Herr Work Phone: [facility] 03-28-2024 13:31-0400 Body height 166.37 cm OXYGEN THERAPY TEACHER-C Yola Herr Work Phone: [facility] 03-28-2024 13:31-0400 Body weight 75.75 kg OXYGEN THERAPY TEACHER-C Yola Herr Work Phone: [facility] 03-24-2024 17:25-0400 Body temperature 97.9 [degF] OXYGEN THERAPY TEACHER-C Yola Herr Work Phone: [facility] 03-24-2024 17:25-0400 Diastolic blood pressure 68 mm[Hg] OXYGEN THERAPY TEACHER-C Yola Herr Work Phone: [facility] 03-24-2024 17:25-0400 Heart rate 69 /min OXYGEN THERAPY TEACHER-C Yola Herr Work Phone: [facility] 03-24-2024 17:25-0400 Respiratory rate 16 /min OXYGEN THERAPY TEACHER-C Yola Herr Work Phone: [facility] 03-24-2024 17:25-0400 SaO2% (BldA) [Mass fraction] 97 % OXYGEN THERAPY TEACHER-Palak Herr Work Phone: [facility] 03-24-2024 17:25-0400 Systolic blood pressure 137 mm[Hg] OXYGEN THERAPY TEACHER-Palak Herr Work Phone: [facility] 03-24-2024 15:17-0400 Body height 167.64 cm OXYGEN THERAPY TEACHER-Palak Herr Work Phone: [facility] 03-24-2024 15:17-0400 Body weight 75.5 kg OXYGEN THERAPY TEACHER-Palak Herr Work Phone: [facility] 03-24-2024 13:49-0400 Body height 167.64 cm [facility] 03-24-2024 13:49-0400 Body mass index (BMI) [Ratio] 26.3 kg/m2 [facility] 03-24-2024 13:49-0400 Body temperature 98.1 [degF] [facility] 03-24-2024 13:49-0400 Body weight 73.93 kg [facility] 03-24-2024 13:49-0400 Diastolic blood pressure 82 mm[Hg] [facility] 03-24-2024 13:49-0400 Heart rate 90 /min [facility] 03-24-2024 13:49-0400 Respiratory rate 18 /min [facility] 03-24-2024 13:49-0400 SaO2% (BldA) [Mass fraction] 96 % [facility] 03-24-2024 13:49-0400 Systolic blood pressure 146 mm[Hg] [facility] Encounters Encounter Date Encounter Type Care Provider Facility Start: 07-22-2024 End: 07-22-2024 Telephone encounter Irene RAHMAN Work Phone: [facility] Start: 07-19-2024 End: 07-19-2024 Office outpatient visit 25 minutes Irene RAHMAN Work Phone: [facility] Comment on above: Acute pain of left k nee (Primary Dx); Effusion of left knee; Polyarthralgia; Left wrist effusion Start: 07-19-2024 End: 07-19-2024 ambulatory IRENE FENG Not Available Start: 07-19-2024 End: 07-19-2024 Bamboo flowsheet Irene Feng PA Work Phone: [facility] Start: 07-19-2024 End: 07-19-2024 Bamboo flowsheet Irene Feng PA Work Phone: [facility] Start: 07-05-2024 End: 07-05-2024 ambulatory YOLA HERR [facility] Start: 06-11-2024 End: 06-14-2024 Refill Yola Herr CUSHION PADDER-LIFE COACH Work Phone: [facility] Comment on above: Anxiety and depressi on; Benign essential HTN Start: 06-10-2024 End: 06-10-2024 Office outpatient visit 15 minutes Isabella A Felter CUSHION PADDER-LIFE COACH Work Phone: [facility] Comment on above: 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[facility]) Start: 06-10-2024 End: 06-10-2024 ambulatory ISABELLA A FELTER Not Available Start: 06-10-2024 End: 06-10-2024 Bamboo flowsheet Isabella A Felter CUSHION PADDER-LIFE COACH Work Phone: [facility] Start: 06-10-2024 End: 06-10-2024 Bamboo flowsheet Isabella A Felter CUSHION PADDER-LIFE COACH Work Phone: [facility] Start: 05-24-2024 End: 05-24-2024 Bamboo flowsheet Carmen Jacinto Apling OXYGEN THERAPY TEACHER Work Phone: [facility] Start: 05-24-2024 End: 05-24-2024 Bamboo flowsheet Carmen Jacinto Apling OXYGEN THERAPY TEACHER Work Phone: [facility] Start: 05-24-2024 End: 05-24-2024 Office outpatient visit 15 minutes Carmen Yap OXYGEN THERAPY TEACHER Work Phone: [facility] Comment on above: Left wrist pain (Jennifer israel Dx); Swelling of left wrist; Arthritis of carpometacarpal (CMC) joint of left thumb; Arthritis of left wrist; Ganglion of left wrist Start: 05-24-2024 End: 05-24-2024 ambulatory CARMEN YAP Not Available Start: 05-03-2024 End: 05-03-2024 Patient encounter procedure Isabella Valenzuela Felter CUSHION PADDER-LIFE COACH Work Phone: [facility] Comment on above: Rash and other nonsp ecific skin eruption Start: 05-03-2024 End: 05-03-2024 ambulatory ISABELLA Valenzuela FELTER Not Available Start: 05-03-2024 End: 05-03-2024 Bamboo flowsheet Isabella Valenzuela Felter CUSHION PADDER-LIFE COACH Work Phone: [facility] Start: 05-03-2024 End: 05-03-2024 Bamboo flowsheet Isabella Valenzuela Felter CUSHION PADDER-LIFE COACH Work Phone: [facility] Start: 04-27-2024 End: 05-24-2024 Telephone encounter Karena Levin OT Work Phone: [facility] Comment on above: OT Initial Eval (Wyatt led to inform off referral per Leeing a $25.00 copay at dos is required. She said due to time availability she will need to contact me back re: OT treatment hours are her work hours; she will call back.) Start: 04-26-2024 End: 04-26-2024 Bamboo flowsheet Carmen Yap OXYGEN THERAPY TEACHER Work Phone: [facility] Start: 04-26-2024 End: 04-26-2024 Bamboo flowsheet Carmen Yap OXYGEN THERAPY TEACHER Work Phone: [facility] Start: 04-26-2024 End: 04-26-2024 Office outpatient visit 15 minutes Carmen Yap OXYGEN THERAPY TEACHER Work Phone: [facility] Comment on above: Left wrist pain (Jennifer israel Dx); Swelling of left wrist; Arthritis of carpometacarpal (CMC) joint of left thumb; Arthritis of left wrist Start: 04-26-2024 End: 04-26-2024 ambulatory CARMEN B APLING Not Available Start: 04-12-2024 End: 04-12-2024 Office outpatient visit 15 minutes Isabella Lozoya CUSHION PADDER-LIFE COACH Work Phone: [facility] Comment on above: Allergic contact jany matitis, unspecified trigger (Primary Dx) Start: 04-12-2024 End: 04-12-2024 ambulatory ISABELLA JESSICAER Not Available Start: 04-12-2024 End: 04-12-2024 Bamboo flowsheet Carmen B Apling OXYGEN THERAPY TEACHER Work Phone: [facility] Start: 04-12-2024 End: 04-12-2024 Bamboo Eachpalheet Carmen B Apling OXYGEN THERAPY TEACHER Work Phone: [facility] Start: 04-12-2024 End: 04-12-2024 Office outpatient visit 25 minutes Carmen Orville Apling OXYGEN THERAPY TEACHER Work Phone: [facility] Comment on above: Left wrist pain (Jennifer israel Dx); Swelling of left wrist; Arthritis of left wrist; Arthritis of carpometacarpal (CMC) joint of left thumb Start: 04-12-2024 End: 04-12-2024 ambulatory CARMEN B APLING Not Available Start: 03-29-2024 End: 03-29-2024 Bamboo Eachpalheet Carmen B Apling OXYGEN THERAPY TEACHER Work Phone: [facility] Start: 03-29-2024 End: 03-29-2024 Bamboo Eachpalheet Carmen B Apling OXYGEN THERAPY TEACHER Work Phone: [facility] Start: 03-29-2024 End: 03-29-2024 Office outpatient new 30 minutes Carmen B Apling OXYGEN THERAPY TEACHER Work Phone: [facility] Comment on above: Left wrist pain (Jennifer israel Dx); Swelling of left wrist; Arthritis of left wrist Start: 03-29-2024 End: 03-29-2024 ambulatory CARMEN B APLING Not Available Start: 03-28-2024 End: 03-28-2024 Emergency department patient visit OXYGEN THERAPY TEACHER-C Yola Herr Work Phone: [facility] Work Phone: Start: 03-24-2024 End: 03-24-2024 Emergency department patient visit OXYGEN THERAPY TEACHER-C Yola Herr Work Phone: [facility] Work Phone: Start: 03-24-2024 End: 03-24-2024 ambulatory [facility] Work Phone: Start: 03-24-2024 End: 03-24-2024 Patient encounter procedure [facility] [place] Work Phone: Start: 01-23-2024 End: 01-23-2024 ambulatory [facility] Start: 01-23-2024 End: 01-24-2024 [facility] Start: 12-02-2023 End: 12-02-2023 [facility] Start: 06-27-2022 End: 06-28-2022 ambulatory [facility] Facility:H1 Start: 06-14-2022 End: 06-15-2022 ambulatory [facility] Facility:H1 Start: 06-04-2022 Encounter for genera l adult medical examination without abnormal findings YOLA [facility] Start: 06-01-2022 End: 06-02-2022 ambulatory [facility] Facility:H1 Start: 06-01-2022 End: 06-02-2022 Encounter for general adult medical examination without abnormal findings [facility] Facility:H1 Start: 12-10-2021 End: 12-26-2021 ambulatory [facility] Facility:H1 Start: 04-05-2020 Patient encounter procedure Yola Herr CUSHION PADDER-LIFE COACH Work Phone: [facility] [email or web address] Procedures Date Procedure Procedure Detail Performing Clinician Start: 07-19-2024 Radiologic examinati on knee 1/2 views Irene RAHMAN Work Phone: Start: 07-19-2024 Arthrocentesis aspir &/inj major jt/bursa w/o us Irene RAHMAN Work Phone: Start: 05-03-2024 SKIN / NAIL BIOPSY Freida Lozoya CUSHION PADDER-LIFE COACH Work Phone: Start: 04-12-2024 Arthrocentesis aspir &/inj small jt/bursa w/o us Carmen Jacinto Apling OXYGEN THERAPY TEACHER Work Phone: Start: 04-12-2024 Radex wrist complete minimum 3 views Carmen Jacinto Apling OXYGEN THERAPY TEACHER Work Phone: Start: 03-24-2024 Plain X-ray of left hand OXYGEN THERAPY TEACHER-C Yola Herr Work Phone: Start: 01-23-2024 Mammography Isabella miller [employer] Work Phone: Start: 12-02-2023 Follow-up visit Follow-up YOLA HERR Start: 12-02-2023 Adult depression scr eening assessment Yola Herr [employer] Work Phone: Start: 08-29-2014 Colonoscopy Yola finch [employer] Work Phone: Plan of Treatment Date Care Activity Detail Author Start: 01-22-2025 Adult BMI Screening Adult BMI Screening [facility] Start: 01-22-2025 Screening for malignant neoplasm of breast Mammogram [facility] Start: 01-22-2025 Tobacco Screening Tobacco Screening [facility] [employer] [facility] Start: 12-01-2024 Adult BMI Follow Up Plan Adult BMI Follow Up Plan [facility] Start: 12-01-2024 Depression Screening Depression Screening [facility] Start: 08-29-2024 Screening for malignant neoplasm of colon Colonoscopy [facility] Start: 07-26-2024 End: 07-26-2024 Patient encounter procedure 07/26/2024 4:00 PM EST Office Visit [facility] [address] [place] [phone] Yola Herr, CUSHION PADDER-LIFE COACH [address] [place] [phone] [facility] Start: 07-19-2024 End: 07-19-2024 Patient encounter procedure 07/19/2024 2:15 PM EST Office Visit [facility] [address] [place] [address] Irene Feng, PA [address] [place] [address] Acute pain of left knee (Primary Dx) [facility] Comment on above: Acute pain of left knee (Primary Dx) Start: 07-19-2024 End: 07-19-2025 Aerobic culture Aerobic culture Microbiology Routine Acute pain of left knee Effusion of left knee Expected: 07/19/2024 (Approximate), Expires: 07/19/2025 [facility] Comment on above: Expected: 07/19/2024 (Approximate), Expi res: 07/19/2025 Start: 07-19-2024 End: 07-19-2025 AFB culture AFB culture Microbiology Routine Acute pain of left knee Effusion of left knee Expected: 07/19/2024 (Approximate), Expires: 07/19/2025 [facility] Comment on above: Expected: 07/19/2024 (Approximate), Expi res: 07/19/2025 Start: 07-19-2024 End: 07-19-2025 Anaerobic culture Anaerobic culture Microbiology Routine Acute pain of left knee Effusion of left knee Expected: 07/19/2024 (Approximate), Expires: 07/19/2025 [facility] Comment on above: Expected: 07/19/2024 (Approximate), Expi res: 07/19/2025 Start: 07-19-2024 End: 07-19-2025 C reactive protein [Mass/volume] in Serum or Plasma C-reactive protein Lab Routine Polyarthralgia Expected: 07/19/2024 (Approximate), Expires: 07/19/2025 [facility] Comment on above: Expected: 07/19/2024 (Approximate), Expi res: 07/19/2025 Start: 07-19-2024 End: 07-19-2025 CBC W Auto Differential panel - Blood CBC and differential Lab Routine Polyarthralgia Expected: 07/19/2024 (Approximate), Expires: 07/19/2025 [facility] Work Phone: Comment on above: Expected: 07/19/2024 (Approximate), Expi res: 07/19/2025 Start: 07-19-2024 End: 07-19-2025 Erythrocyte sedimentation rate Sedimentation rate, automated Lab Routine Polyarthralgia Expected: 07/19/2024 (Approximate), Expires: 07/19/[address]25 [facility] Comment on above: Expected: 07/19/2024 (Approximate), Expi res: 07/19/2025 Start: 07-19-2024 End: 07-19-2025 Glucose, body fluid Glucose, body fluid Lab Routine Acute pain of left knee Effusion of left knee Expected: 07/19/2024 (Approximate), Expires: 07/19/2025 [facility] Comment on above: Expected: 07/19/2024 (Approximate), Expi res: 07/19/2025 Start: 07-19-2024 End: 07-19-2025 HLA-B27 antigen HLA-B27 antigen Lab Routine Polyarthralgia Expected: 07/19/2024 (Approximate), Expires: 07/19/2025 [facility] Comment on above: Expected: 07/19/2024 (Approximate), Expi res: 07/19/2025 Start: 07-19-2024 End: 07-19-2025 Lupus anticoagulant Lupus anticoagulant Lab Routine Polyarthralgia Expected: 07/19/2024 (Approximate), Expires: 07/19/2025 [facility] Comment on above: Expected: 07/19/2024 (Approximate), Expi res: 07/19/2025 Start: 07-19-2024 End: 07-19-2025 Lyme disease, western blot Lyme disease, western blot Lab Routine Polyarthralgia Expected: 07/19/2024 (Approximate), Expires: 07/19/2025 [facility] Comment on above: Expected: 07/19/2024 (Approximate), Expi res: 07/19/2025 Start: 07-19-2024 End: 07-19-2025 Microscopic observation [Identifier] in Unspecified specimen by Gram stain Gram stain Microbiology Routine Acute pain of left knee Effusion of left knee Expected: 07/19/2024 (Approximate), Expires: 07/19/2025 [facility] Comment on above: Expected: 07/19/2024 (Approximate), Expi res: 07/19/2025 Start: 07-19-2024 End: 07-19-2025 Nuclear Ab [Titer] in Serum by Immunofluorescence LUTHER Lab Routine Polyarthralgia Expected: 07/19/2024 (Approximate), Expires: 07/19/2025 [facility] Comment on above: Expected: 07/19/2024 (Approximate), Expi res: 07/19/2025 Start: 07-19-2024 End: 07-19-2025 Protein, body fluid Protein, body fluid Lab Routine Acute pain of left knee Effusion of left knee Expected: 07/19/2024 (Approximate), Expires: 07/19/2025 [facility] Comment on above: Expected: 07/19/2024 (Approximate), Expi res: 07/19/2025 Start: 07-19-2024 End: 07-19-2025 Rheumatoid factor [Units/volume] in Serum or Plasma Rheumatoid factor Lab Routine Polyarthralgia Expected: 07/19/2024 (Approximate), Expires: 07/19/2025 [facility] Comment on above: Expected: 07/19/2024 (Approximate), Expi res: 07/19/2025 Start: 07-19-2024 End: 07-19-2025 Synovial fluid, cell count Synovial fluid, cell count Lab Routine Acute pain of left knee Effusion of left knee Expected: 07/19/2024 (Approximate), Expires: 07/19/2025 [facility] Comment on above: Expected: 07/19/2024 (Approximate), Expi res: 07/19/2025 Start: 07-19-2024 End: 07-19-2025 Synovial fluid, crystal Synovial fluid, crystal Lab Routine Acute pain of left knee Effusion of left knee Expected: 07/19/2024 (Approximate), Expires: 07/19/2025 [facility] Comment on above: Expected: 07/19/2024 (Approximate), Expi res: 07/19/2025 Start: 07-19-2024 End: 07-19-2025 Urate [Mass/volume] in Serum or Plasma Uric acid Lab Routine Polyarthralgia Expected: 07/19/2024 (Approximate), Expires: 07/19/2025 [facility] Comment on above: Expected: 07/19/2024 (Approximate), Expi res: 07/19/2025 Start: 07-05-2024 End: 07-05-2024 Patient encounter procedure 07/05/2024 3:45 PM EST Appointment [facility] - Mammography[facility]DEXA Imaging [address] [place] [address] [facility] Start: 06-10-2024 End: 06-10-2024 Patient encounter procedure [facility] Comment on above: Arrived Start: 06-07-2024 End: 06-07-2024 Patient encounter procedure 06/07/2024 12:00 PM EST Office Visit [facility] [address] [place] [address] Carmen Yap OXYGEN THERAPY TEACHER [address] [facility] [address] [place] [address] [facility] Start: 05-24-2024 End: 05-24-2024 Patient encounter procedure 05/24/2024 11:30 AM EST Office Visit [facility] [address] [place] [address] Carmen Yap OXYGEN THERAPY TEACHER [address] [place] [address] Left wrist pain (Primary Dx); Swelling of left wrist; Arthritis of carpometacarpal (CMC) joint of left thumb; Arthritis of left wrist [facility] Comment on above: Left wrist pain (Primary Dx); Swelling of left wrist; Arthritis of carpometacarpal (CMC) joint of left thumb; Arthritis of left wrist Start: 05-03-2024 End: 05-03-2024 Patient encounter procedure [facility] Comment on above: Arrived Start: 04-26-2024 End: 04-26-2024 Patient encounter procedure [facility] Comment on above: Left wrist pain (Primary Dx); Swelling of left wrist; Arthritis of carpometacarpal (CMC) joint of left thumb; Arthritis of left wrist Start: 04-12-2024 End: 04-12-2024 Patient encounter procedure [facility] Comment on above: Left wrist pain (Primary Dx); Swelling of left wrist; Arthritis of left wrist Start: 03-29-2024 End: 03-29-2024 Patient encounter procedure 03/29/2024 1:30 PM EDT Office Visit [facility] [address] [facility] [address] [place] [address] Carmen Yap NP [address] [facility] [address] [place] [address] Left wrist pain (Primary Dx) [facility] Comment on above: Left wrist pain (Primary Dx) Start: 03-21-2024 Influenza vaccination [facility] Start: 2010 Administration of varicella zoster vaccine Zoster (Shingles) Vaccine (1 of 2) [facility] Start: 1990 Screening for malignant neoplasm of cervix [facility] Start: 1981 Screening for malignant neoplasm of cervix Pap Smear [facility] Start: 1979 DTaP,Tdap and Td Vaccines (1 - Tdap) DTaP,Tdap and Td Vaccines (1 - Tdap) [facility] Start: 1960 Screening for malignant neoplasm of colon [facility] Start: 1960 Tobacco Counseling Tobacco Counseling [facility] Dermatopathology exam Dermatopat hology exam Pathology and Cytology Timed Rash and other nonspecific skin eruption Release Upon Ordering for 1 Occurrences starting 05/03/2024 [facility] Work Phone: Comment on above: Release Upon Ordering for 1 Occurrences starting 05/03/2024 Patient Education [facility] Work Phone: Patient referral [facility] Work Phone: Immunizations Immunization Date Immunization Notes Care Provider Danni jose 06-03-2023 influenza, injectabl e, quadrivalent, preservative free Yola Herr CUSHION PADDER-LIFE COACH Work Phone: [facility] 06-03-2023 influenza virus vaccine, unspecified formulation Isabella Lozoya CUSH[employer] PADDER[employer]LIFE COACH Work Phone: [facility] 05-21-2022 influenza, injectabl e, quadrivalent, preservative free Yola Herr CUSHION PADDER-LIFE COACH Work Phone: [facility] 05-01-2021 Influenza, injectabl e, Madin Vicky Canine Kidney, preservative free, quadrivalent Yola Herr CUSHION PADDER-LIFE COACH Work Phone: [facility] 04-20-2020 influenza, injectabl e, quadrivalent, preservative free Yola Herr CUSHION PADDER-LIFE COACH Work Phone: [facility] 05-15-2019 influenza, injectabl e, quadrivalent, preservative free Yola Herr CUSHION PADDER-LIFE COACH Work Phone: [facility] 04-28-2018 influenza virus vaccine, unspecified formulation Yola Herr C[employer] PAD[employer]LIFE COACH Work Phone: [facility] 04-28-2018 influenza, injectabl e, quadrivalent, preservative free Yola Herr [employer] PAD[employer]LIFE COACH Work Phone: [facility] 04-22-2016 influenza, injectabl e, quadrivalent, preservative free Yola Herr CUSHION PADDER-LIFE COACH Work Phone: [facility] 06-28-2009 novel [id number], preservative-free, injectable Yola Herr CUSHION PADDER-LIFE COACH Work Phone: [facility] Payers Date Payer Category Payer Self-pay 2023 [facility] [employer] [id number] 2023 [facility] Managed Care - Other [facility] [id number] 2023 Unknown [id number] 2023 Unknown [id number] 1960 Unknown [id number] 2.16.840.1.564587.3.57 9.2.593 1960 Unknown [id number] 2.16.840.1.682024.3.57 9.2.593 1960 Unknown [id number] 2.16.840.1.150217.3.57 9.2.593 1960 Unknown [id number] 2.16.840.1.557787.3.57 9.2.593 1960 Unknown [id number] 2.16.840.1.788707.3.57 9.2.1286 1960 Unknown [id number] 2.16.840.1.437663.3.57 9.2.1286 1960 Unknown [id number] 2.16.840.1.964258.3.57 9.2.1286 1960 Unknown [id number] 2.16.840.1.185416.3.57 9.2.1286 1960 Unknown [id number] 2..840.1.302574.3.57 9.2.1286 1960 Unknown [id number] 2..840.1.773926.3.57 9.2.1259 1960 Unknown [id number] 2.840.1.112073.3.57 9.2.1259 1960 Unknown [id number] 2..840.1.053503.3.57 9.2.1259 1960 Unknown [id number] 2..840.1.009169.3.57 9.2.1259 1960 Unknown [id number] 2..840.1.753547.3.57 9.2.1259 1960 Unknown [id number] 2.840.1.737227.3.57 9.2.1259 1960 Unknown [id number] 2.16.840.1.843741.3.57 9.2.1259 1960 Unknown [id number] 2.16.840.1.329826.3.57 9.2.1259 1960 Unknown [id number] 2.16.840.1.212166.3.57 9.2.1259 1960 Unknown [id number] 2.16.840.1.335978.3.57 9.2.1259 1959 Unknown [id number] Unknown [id number] 2.16.840.1.572076.3.57 9.2.531 Unknown [id number] 2.16.840.1.732982.3.57 9.2.531 Social History Date Type Detail Facility Start: 03-24-2024 Tobacco smoking stat us [facility] Current Heavy tobacco smoker [facility] Start: 1960 Sex Assigned At Female [facility] Start: 03-24-2024 End: 03-28-2024 Tobacco smoking status [facility] Smoker (finding) [facility] Start: 07-21-1990 End: 03-29-2024 Tobacco smoking status [facility] Smokes tobacco daily [facility] Start: 07-21-1990 History of tobacco use Cigarette Smo ker [facility] Start: 01-23-2024 End: 03-29-2024 Tobacco use and exposure Smokeless tobacco non-user [facility] Start: 04-12-2024 End: 07-19-2024 Alcoholic beverage intake Ex-drinker (finding) [facility] Start: 04-12-2024 End: 07-19-2024 History of Social function [facility] Start: 04-12-2024 End: 07-19-2024 Tobacco use panel [facility] Start: 1960 Sex assigned at Not on file [facility] Start: 01-23-2024 Alcoholic beverage intake Current non-drinker of alcohol (finding) [facility] Adolescent depressio n screening assessment 0 [facility] Start: 02-23-2015 Sex Female (finding) [facility] Clinical Notes 03-29-2024 to 07-22-2024 Telephone Encounter - LACEY Jimenez - 07/22/2024 12:41 PM ESTTelephone Encounter - LACEY Jimenez - 07/22/2024 12:41 PM ESTMattLACEY Ramos - 07/19/2024 2:15 PM EST Note Date & Type Note Facility 07-22-2024 Telephone encounter Note Cont pain , no fever, pt notes right knee painful.. Cult penidng by Synovial fluid below 50K.. will await other labs test. CBC wnl- elevate platelets.. recommend Predisone taper ( elevated SED/ CRP) - consider Rheum referral pending additional lab test. Pt thankful for call [facility] 07-22-2024 Miscellaneous Notes Cont pain , no fever, pt notes right knee painful.. Cult penidng by Synovial fluid below 50K.. will await other labs test. CBC wnl- elevate platelets.. recommend Predisone taper ( elevated SED/ CRP) - consider Rheum referral pending additional lab test. Pt thankful for call documented in this encounter [facility] 07-19-2024 History of Present illness Narrative Associated Order(s): L Inj/Asp: L knee Post-Procedure Diagnose(s): Effusion of left knee Images from the original note were not included. HISTORY OF PRESENT ILLNESS: EST PT Carla Irby is an 64 y.o. @ female. (EST PT W/ [place]) NEW COMPLAINT, (L) KNEE DISCOMFORT. SYMPTOMS FOR ~2WKS ; DENIES ANY SPECIFIC INJURY BUT STATES SHE DOES BANG IT A LOT. XRAYS DONE TODAY, 07/19/24 IN EPIC NOTES CONSTANT DISCOMFORT, ANTERIOR ASPECT - WORSE WITH ACTIVITY / MOVEMENT ; WORSE HS. NOTES LIMITED ROM ; SOME INSTABILITY / WEAKNESS. NOTES CONSTANT SWELLING - ICING / ELEVATING ; NOTES REDNESS WITHIN THE PAST WEEK. TAKING ALEVE BID ; SOME RELIEF. ALLERGIES: No Known Allergies HOME MEDICATIONS: Current Outpatient Medications Medication Instructions amLODIPine-benazepril (Lotrel) 10-40 MG capsule 1 capsule betamethasone dipropionate 0.05 % cream Apply to affected areas, up to twice a day when flared, do not use one the face, groin, or underarms, 30 day supply escitalopram (Lexapro) 20 MG tablet Daily ibuprofen 800 MG tablet Every 8 hours Tapinarof (Vtama) 1 % cream 1 application , Apply externally, Daily, Apply to hands once a day until clear then prn for flares/30 days PHYSICAL EXAM: Knee Musculoskeletal Exam Gait Limp: left Inspection Leg length disparity: no discrepancy Left Erythema: mild Erythema comment: blanchable to anterior knee. no streaking Effusion: moderate Effusion comment: slight warmth Edema: none Ecchymosis: none Deformity: none Alignment: normal Previous incision comment: remote scars anterior knee supra patella form child . Palpation Left Left knee palpation is unremarkable. Increased warmth: none Masses: none Crepitus: patellofemoral Tenderness: present Tenderness comment: tender to swelling/ effusion. Lateral joint line: mild Lateral retinaculum: mild Medial joint line: mild Medial retinaculum: mild Quadriceps tendon comment: nontender Range of Motion Left Active extension: 5 Passive extension: 0 Active flexion: 100 Passive flexion: 105 Range of motion additional comments: Painless prom, limited motion on end secondary to effusion. Pt also has effusion to left wrist. Currently in therapy, notes swelling at wrist came on without warning, no injury, remote orif. Strength Left Left knee strength is normal. Extension: 5/5. Extension is affected by pain. Flexion: 5/5. Flexion is affected by pain. Instability Left Instability signs: none - stable Varus stress grade: normal Valgus stress grade: normal Anterior drawer: normal Medial Ruslan test: negative Lateral Ruslan test: negative Neurovascular Left Left knee neurovascular exam is normal. Pulses - PT: normal Posterior tibial: 2+ Capillary refill: warm and well-perfused Special Signs Left Left knee special signs are normal. Patellar apprehension: none General Constitutional: appears stated age Labored breathing: no Psychiatric: normal mood and affect Neurological: alert Skin: intact Lymphadenopathy: none Vitals: Body mass index is 27.44 kg/m . Tobacco Use: High Risk (07/19/2024) Patient History Smoking Tobacco Use: Every Day Smokeless Tobacco Use: Never Passive Exposure: Not on file Alcohol Use: Not on file IMAGING: L Inj/Asp: L knee on 07/19/2024 3:00 AM Indications: pain, joint swelling and diagnostic evaluation Details: 22 G needle, anterolateral approach Medications: 40 mg methylPREDNISolone acetate 40 MG/ML Aspirate: 16 mL cloudy and yellow (Unable to see through. ) Outcome: tolerated well, no immediate complications UTILIZING ASEPTIC TECHNIQUE LEFT KNEE JOINT ASPIRATION PREFORMED, NO CORTISONE GIVEN WITH JOINT APPEARING CLOUDY, NEUROVASC INTACT S/P INJ, TOLERATED WELL Procedure, treatment alternatives, risks and benefits explained, specific risks discussed. Consent was given by the patient. Patient was prepped and draped in the usual sterile fashion. Orders Placed This Encounter Procedures L Inj/Asp This order was created via procedure documentation AFB culture Standing Status: Future Standing Expiration Date: 07/19/2025 Order Specific Question: Print requisition? Answer: No Anaerobic culture Standing Status: Future Standing Expiration Date: 07/19/2025 Order Specific Question: Print requisition? Answer: No Aerobic culture Standing Status: Future Standing Expiration Date: 07/19/2025 Order Specific Question: Print requisition? Answer: No Gram stain Standing Status: Future Standing Expiration Date: 07/19/2025 Order Specific Question: Print requisition? Answer: No XR knee 1 or 2 views left Order Specific Question: Reason for exam: Answer: PAIN CBC and differential Standing Status: Future Number of Occurrences: 1 Standing Expiration Date: 07/19/2025 Order Specific Question: Print requisition? Answer: No Sedimentation rate, automated Standing Status: Future Number of Occurrences: 1 Standing Expiration Date: 07/19/2025 Order Specific Question: Print requisition? Answer: No LUTHER Standing Status: Future Number of Occurrences: 1 Standing Expiration Date: 07/19/2025 Order Specific Question: Print requisition? Answer: No Rheumatoid factor Standing Status: Future Number of Occurrences: 1 Standing Expiration Date: 07/19/2025 Order Specific Question: Print requisition? Answer: No Lyme disease, western blot Standing Status: Future Number of Occurrences: 1 Standing Expiration Date: 07/19/2025 Scheduling Instructions: LAB TEST [id number] Lyme Disease, Line Blot Order Specific Question: Print requisition? Answer: No Uric acid Standing Status: Future Number of Occurrences: 1 Standing Expiration Date: 07/19/2025 Order Specific Question: Print requisition? Answer: No Lupus anticoagulant Standing Status: Future Number of Occurrences: 1 Standing Expiration Date: 07/19/2025 Scheduling Instructions: TEST NUMBER [id number] Systemic Lupus Erythematosus (SLE) Profile A Order Specific Question: Print requisition? Answer: No HLA-B27 antigen Standing Status: Future Number of Occurrences: 1 Standing Expiration Date: 07/19/2025 Order Specific Question: Print requisition? Answer: No C-reactive protein Standing Status: Future Number of Occurrences: 1 Standing Expiration Date: 07/19/2025 Order Specific Question: Print requisition? Answer: No Synovial fluid, cell count Standing Status: Future Number of Occurrences: 1 Standing Expiration Date: 07/19/2025 Order Specific Question: Print requisition? Answer: No Glucose, body fluid Standing Status: Future Number of Occurrences: 1 Standing Expiration Date: 07/19/2025 Order Specific Question: Print requisition? Answer: No Synovial fluid, crystal Standing Status: Future Number of Occurrences: 1 Standing Expiration Date: 07/19/2025 Scheduling Instructions: LAB ANANYA TEST # [id number] Order Specific Question: Print requisition? Answer: No Protein, body fluid Standing Status: Future Standing Expiration Date: 07/19/2025 Order Specific Question: Print requisition? Answer: No ASSESSMENT: ICD-10-CM 1. Acute pain of left knee M25.562 XR knee 1 or 2 views left AFB culture Synovial fluid, cell count Glucose, body fluid Synovial fluid, crystal Protein, body fluid Anaerobic culture Aerobic culture Gram stain Synovial fluid, cell count Glucose, body fluid Synovial fluid, crystal 2. Effusion of left knee M25.462 AFB culture Synovial fluid, cell count Glucose, body fluid Synovial fluid, crystal Protein, body fluid Anaerobic culture Aerobic culture Gram stain Synovial fluid, cell count Glucose, body fluid Synovial fluid, crystal 3. Polyarthralgia M25.50 CBC and differential Sedimentation rate, automated LUTHER Rheumatoid factor Lyme disease, western blot Uric acid Lupus anticoagulant HLA-B27 antigen C-reactive protein CBC and differential Sedimentation rate, automated LUTHER Rheumatoid factor Lyme disease, western blot Uric acid Lupus anticoagulant HLA-B27 antigen C-reactive protein 4. Left wrist effusion M25.432 Assessment & Plan 1. Atraumatic effusion of the left knee. She reports having similar symptoms in the past off and on and had prior aspiration with cortisone injection. Aspiration today with cloudy appearing joint fluid, slight erythema to the most anterior aspect of the knee that easily blanches concerning more for swelling than cellulitis. She does not report any fevers or chills. Fluid was obtained and will be sent for analysis with culture, cell count, etc. Preliminary labs will be done for potential rheumatologic process as she also has a left wrist effusion with current symptoms and describes joint effusions intermittently in the past. Steroid administration will be withheld pending lab analysis. She will use ice and an Rodolfo wrap for compression. Pending lab studies will be rechecked, and an oral steroid will be considered if results are negative. PROCEDURE Aspiration of the left knee was performed today, revealing cloudy joint fluid. Questions answered in laymen terms at the bedside. The diagnosis, home exercise plan and any ongoing restrictions/ recommendations reviewed. If unable to be reached in office, I recommend evaluation at nearest Emergency Room if any symptoms worsened or new symptoms develop for requiring urgent evaluation. documented in this encounter [facility] 06-10-2024 History of Present illness Narrative Images from the original note were not included. Follow up Diagnosis: Pustular psoriasis Location: hands Last visit: 05/03/2024, punch biopsy done Symptoms: some itching Status: much better, blisters are gone Treatments tried/failed: betamethasone dipropionate 0.05 % cream Current treatment: VTAMA cream daily Patient does report arthritis in the left wrist since summer. She does have a history of fracturing her had 11 years ago and has some hardware in her wrist. All pertinent medical history, medications, and allergies were reviewed. General Exam: alert, oriented to person, place, and time, normal affect, well appearing Unaccompanied A focused exam completed based on patient reported problems, see below: 1. 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 No vesicles present today. Use VTAMA once a day until clear then prn for flares. Notify the office for a significant flare or if not controlled with prescribed medication. Pt informed that her wrist pain is likely attributed to the hardware in her wrist and to follow up with her orthopedic surgeon. Related Medications Tapinarof (Vtama) 1 % cream Apply 1 application topically Daily Apply to hands once a day until clear then prn for flares/30 days Next Visit: 1 year documented in this encounter [facility] 05-24-2024 History of Present illness Narrative Images from the original note were not included. Subjective Patient ID: Carla Ibry is a 64 y.o. female. LT Wrist ([facility]) Pt is RT handed. Pt did not go to therapy because she states she does not want to pay for it. Pt also states she knowingly went against her Medical Review Coordinator advice of going to therapy because she thinks it will not help. States she has this entire week off of work for eye issues. She did buy a heat glove and also compression glove for when she works There is a squishy lump dorsum of her wrist that seems to be getting worse. Swelling in her hand and wrist has not improved. She went to the matrix drier tender 2 weeks and started vtama cream 1 week ago and the rash has improved. 6 weeks s/p 1st [facility]G depo medrol injection (04/12/24) with 90% improvement notes the swelling has went down and thumb pain has resolved, states it is still a little tight. She is still having issues/swelling in her wrist. She notes since the surgery she always had limited flexion/extension of the wrist 8 weeks s/p MDP (03/28/24) with 0% improvement. C/o non-healing blister/wound to the left palm she obtained while mowing the lawn 4 weeks ago. 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 Endorses a history of surgery to the left wrist with pins present, she believes around 13 years ago. Has been using antibiotic ointment and bandage on the open blister but has noticed blistering, crusting drainage surrounding the wound for the past several days. Denies fevers, chills, nausea, vomiting, diarrhea, numbness or tingling in the left hand, wrist, or arm. Concerned for infection in the left wrist. Went to PCP whom then sent her to [facility] ER on 03/24/24, put her on ATB cephalexin q6hrs for 5 days, she had xrays done of the left hand in addition. Constant pain around base of her thumb, this has resolved. Admits constant pain dorsum of hand and wrist, and ulnar aspect of hand. Pain occas radiates into her forearm almost to her elbow. Admits waking at night. She tried using her old brace from her ORIF surgery, w/o relief. Pain at rest 4-5/10, notes she took IBU 800 this am. Pain at worst 8-10 if she does not take medication. Describes pain as a deep sharp ache in the bone states the pain feels like the pain she had right after the surgery 13 years ago. States she gets some tingling in her LF and RF on and off, states she has had this since the issues started started but she didn't think it meant anything . Admits swelling in hand and wrist. Also notes her hand and wrist is warm to touch. Notes when she was a teen she had ezcema and would have similar spots that itch. She has a blister in the center of the palm of her hand. The blisters have resolved since last week since she started using a vtama cream. Using heat with relief. Was taking motrin 800 for pain, now taking motrin 200 tyl 500 mg. Admits weakness and trouble gripping, and limited ROM, notes she has difficulty squeezing her toothpaste tube or lift her coffee cup. 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 Notes she can see her tendon poking out in the center of her hand since the past week. [facility] and they gave her percocet. [place]: XR LT hand 03/24/24/[facility], cephalexin, IBU 800, percocet, MDP 03/28/24, XR [facility] 04/12/24, 1st [facility] depo medrol injection 04/12/24, betamethasone dipropionate cream, vtama cream Objective Ortho Exam Hand/Wrist Musculoskeletal Exam Inspection Left Erythema: none Edema: mild (dorsal hand and volar wrist, ther is a 2 cm medial to lateral and 2 cm proximal to distal ganglion cyst on the dorsal wrist) Palpation Left Wrist tenderness to palpation: radial styloid Palpation additional comments: Trace pain throughout the wrist and hand Neurovascular Left Radial pulse: normal and 2+ Capillary refill: brisk and <3 sec Assessment/Plan Encounter Diagnoses: ICD-10-CM 1. Left wrist pain M25.532 2. Swelling of left wrist M25.432 methylPREDNISolone (Medrol Dospak) 4 MG tablets Ambulatory referral to Occupational Therapy 3. Arthritis of carpometacarpal (CMC) joint of left thumb M18.12 4. 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 Ganglion of left wrist M67.432 Keep regular scheduled appt, will try MDP, take as directed, no nsaids while taking MDP until 24 hrs after the last dose of MDP, may increase BP/HR , sent referral to O.T. in addition at [facility], also discussed a CT scan and she notes she will hold off for now documented in this encounter [facility] 05-03-2024 History of Present illness Narrative Images from the original note were not included. Follow up Diagnosis: Allergic contact dermatitis Location: hands Last visit: 04/12/24 Symptoms: red, scaly, itchy Status: no change since last visit Current treatment: betamethasone dipropionate 0.05 % cream All pertinent medical history, medications, and allergies were reviewed. General Exam: alert, oriented to person, place, and time, normal affect, well appearing Unaccompanied A focused exam completed based on patient reported problems, see below: 1. Rash and other nonspecific skin eruption Right Hand - Anterior [place] patches and plaques Lesion biopsy - Right Hand - Anterior Type of biopsy: tangential Informed consent: discussed and consent obtained Informed consent comment: The risks and benefits of the biopsy were discussed. Risks include but are not limited to bleeding, infection, scarring, pain, and nerve damage. An opportunity to ask questions prior to the procedure was permitted and all questions were answered. Patient was prepped and draped in usual sterile fashion: area cleansed with alcohol. Anesthesia: the lesion was anesthetized in a standard fashion Anesthetic: 1% lidocaine w/ epinephrine 1-100,000 buffered w/ 8.4% NaHCO3 Instrument used: DermaBlade Hemostasis achieved with: electrodesiccation Outcome: patient tolerated procedure well Outcome comment: The specimen was placed in a prelabeled formalin container to be sent for pathology Post-procedure details: sterile dressing applied and wound care instructions given Post-procedure details comment: Emphasized need to contact clinic for any signs of infection, uncontrollable bleeding, or complications. Dressing type: bandage Additional details: Photo taken yes Amount of lidocaine used: 0.6 cc Specimen A - Dermatopathology exam Differential Diagnosis: Atopic derm vs Psoriasis vs contact dermatitis Check Margins: No Size of lesion: 1.0 x 0.5 cm Next Visit: pending biopsy results documented in this encounter [facility] 04-26-2024 History of Present illness Narrative Images from the original note were not included. Subjective Patient ID: Carla Irby is a 64 y.o. female. LT Wrist (Referral [facility]) Pt is RT handed. 2 weeks s/p 1st [facility] USG depo medrol injection (04/12/24) with 90% improvement notes the swelling has went down and thumb pain has resolved, states it is still a little tight. She is still having issues/swelling in her wrist. She notes since the surgery she always had limited flexion/extension of the wrist 4 weeks s/p MDP (03/28/24) with 0% improvement, she is off work, she did not go to the matrix drier tender because the blister resolved on the MDP. She is back to work and has a lot of pain at work. The blister and swelling resolved on the MDP but returned after she was done with it. C/o non-healing blister/wound to the left palm she obtained while mowing the lawn 4 weeks ago. 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 Endorses a history of surgery to the left wrist with pins present, she believes around 13 years ago. Has been using antibiotic ointment and bandage on the open blister but has noticed blistering, crusting drainage surrounding the wound for the past several days. Denies fevers, chills, nausea, vomiting, diarrhea, numbness or tingling in the left hand, wrist, or arm. Concerned for infection in the left wrist. Went to PCP whom then sent her to [facility] ER on 03/24/24, put her on ATB cephalexin q6hrs for 5 days, she had xrays done of the left hand in addition. Constant pain around base of her thumb, this has resolved. Admits constant pain dorsum of hand and wrist, and ulnar aspect of hand. Pain occas radiates into her forearm almost to her elbow. Admits waking at night. She tried using her old brace from her ORIF surgery, w/o relief. Pain at rest 4-5/10, notes she took IBU 800 this am. Pain at worst 8-9/10 if she does not take medication. Describes pain as a deep sharp ache in the bone states the pain feels like the pain she had right after the surgery 13 years ago. States she gets some tingling in her fingers on and off, states she has had this since the issues started started but she didn't think it meant anything . Admits swelling in hand and wrist. Also notes her hand and wrist is warm to touch. Notes when she was a teen she had ezcema and would have similar spots that itch. She has a blister in the center of the palm of her hand. Notes she now has a similar blister on her RT hand in the center of her palm. She has been using a hot towel with relief. Was taking motrin 800 for pain, now taking motrin 200 tyl 500 mg. Admits weakness and trouble gripping, and limited ROM, notes she cannot squeeze her toothpaste tube or lift her coffee cup, this has resolved. Notes since last visit her stone paver is improving. Has been using betamethasone dipropionate cream x 2 weeks with relief, states the blisters have not been opening up like they used to. 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 Notes she can see her tendon poking out in the center of her hand since the past week. She went to [facility] 03/28/24 and they gave her percocet. [place]: XR LT hand 03/24/24/[facility] ER, cephalexin, IBU 800, percocet, MDP 03/28/24, XR [facility] 04/12/24, 1st [facility] depo medrol injection 04/12/24 Objective Ortho Exam Hand/Wrist Musculoskeletal Exam Inspection Left Erythema: none Edema: mild (dorsal hand) Palpation Left Wrist tenderness to palpation: radial styloid Palpation additional comments: No pain to palpation Range of Motion Range of motion additional comments: Full pronation, limited supination, very limited flexion/extension Neurovascular Left Radial pulse: normal and 2+ Capillary refill: brisk and <3 sec Assessment/Plan Encounter Diagnoses: ICD-10-CM 1. Left wrist pain M25.532 2. Swelling of left wrist M25.432 3. Arthritis of carpometacarpal (CMC) joint of left thumb M18.12 4. 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 and she would like to go, discussion of activities as tolerated, f/U in 6 weeks. Discussed may use the voltaren gel. documented in this encounter [facility] 04-12-2024 History of Present illness Narrative Images from the original note were not included. Lesions: Location: palms Duration: since February Quality: itchy Modifying factors: Medrol Dospak seemed to make it better, but 3 days after last dose it came back Associated symptoms: round, red, rough, scaly, non-healing Treatments: Medrol Dospak, Fluocinonide cream (per pt she was given cream from the ER and only used it once as it made it feel worse), Neosporin covered with band aid Established patient, referred by GARY Beckford All pertinent medical history, medications, and allergies were reviewed. General Exam: alert , oriented to person, place, and time , normal affect, well appearing Unaccompanied A focused exam completed based on patient reported problems, see below: 1. Allergic contact dermatitis, unspecified trigger Left Mid Palm, Right Mid Palm Scaly, erythematous patch with indistinct border. Counseled on condition. Start Betamethasone cream, instructed to apply BID until clear. Follow up in 3 weeks. Related Procedures Ambulatory referral to Dermatology Related Medications betamethasone dipropionate 0.05 % cream Apply to affected areas, up to twice a day when flared, do not use one the face, groin, or underarms, 30 day supply Next Visit: 3 weeks documented in this encounter [facility] 04-12-2024 History of Present illness Narrative Associated Order(s): S Inj/Asp: L thumb [facility] Post-Procedure Diagnose(s): Arthritis of carpometacarpal (CMC) joint of left thumb Images from the original note were not included. Subjective Patient ID: Carla Irby is a 64 y.o. female. LT Wrist (Referral [facility]) Pt is RT handed. 2 weeks s/p MDP (03/28/24) with 0% improvement, she is off work, she did not go to the matrix drier tender because the blister resolved on the MDP. The blister and swelling resolved on the MDP but returned after she was done with it. C/o non-healing blister/wound to the left palm she obtained while mowing the lawn 4 weeks ago. 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 Endorses a history of surgery to the left wrist with pins present, she believes around 13 years ago. Has been using antibiotic ointment and bandage on the open blister but has noticed blistering, crusting drainage surrounding the wound for the past several days. Denies fevers, chills, nausea, vomiting, diarrhea, numbness or tingling in the left hand, wrist, or arm. Concerned for infection in the left wrist. Went to PCP whom then sent her to [facility] ER on 03/24/24, put her on ATB cephalexin q6hrs for 5 days, she had xrays done of the left hand in addition. Constant pain around base of her thumb, and dorsum of hand and wrist, and ulnar aspect of hand. Pain occas radiates into her forearm almost to her elbow. Admits waking at night. She tried using her old brace from her ORIF surgery, w/o relief. Pain is a constant 9-10/10. Pain when she takes medication 5-6/10. Describes pain as a deep sharp ache in the bone states the pain feels like the pain she had right after the surgery 13 years ago. Denies N/T. Admits swelling in hand and wrist. Also notes her hand and wrist is warm to touch. Notes when she was a teen she had ezcema and would have similar spots that itch. She has a blister in the center of the palm of her hand. Notes she now has a similar blister on her RT hand in the center of her palm. She has been icing her wrist. She is using a triple antibiotic ointment and a bandaid before bed every night and the ointment multiple times a day. Notes she used a fluocinonide cream 0.1% from the ER doctor but states it made her burn. She used this before last visit. Was taking motrin 800 for pain, now taking motrin 200 tyl 500 mg. Admits weakness and trouble gripping, and limited ROM, notes she cannot squeeze her toothpaste tube or lift her coffee cup. Notes she has dropped items. 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 She went to [facility] 03/28/24 and they gave her percocet. [place]: XR LT hand 03/24/24/[facility] ER, cephalexin, IBU 800, percocet, MDP 03/28/24, XR [facility] 04/12/24 Objective Ortho Exam Hand/Wrist Musculoskeletal Exam Inspection Left Erythema: none Edema: mild (first cmc and dorsal hand) Palpation Left Wrist tenderness to palpation: radial styloid Palpation additional comments: First cmc joint Range of Motion Range of motion additional comments: Pain with rom of the wrist and thumb Neurovascular Left Radial pulse: normal and 2+ Capillary refill: brisk and <3 sec S Inj/Asp: L thumb [facility]MC on 04/12/2024 9:52 AM Details: 25 G needle Medications: 20 mg methylPREDNISolone Acetate 20 MG/ML Procedure, treatment alternatives, risks and benefits explained, specific risks discussed. Consent was given by the patient. XR wrist 3+ views left Imaging Result: April 12, 2024 x-rays AP lateral and oblique of the left wrist demonstrate dorsal plate fixation of the distal radius. The plate is intact without signs of loosening or failure. On the oblique/ CMC view there is marked sclerosis at the base of the trapezium at the scaphoid trapezial joint. The joint is narrowed and [id number] is noted. Impression: Pantrapezial arthritis, healed distal radius fracture. Max Preciado D.O. Assessment/Plan Encounter Diagnoses: ICD-10-CM 1. Left wrist pain M25.532 XR wrist 3+ views left 2. Swelling of left wrist M25.432 3. 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 Arthritis of carpometacarpal (CMC) joint of left thumb M18.12 S Inj/Asp: L thumb [facility] Ambulatory referral to Dermatology Will send to dermatology for eval of bilateral hand lesions, Discussion of options, pt notes she would like an injection, side effects of bleeding and infection discussed, would like to proceed with the injection, using aspectic technique 20 mg of depo medrol was injected into the left first cmc joint, pt tolerated well, bandaid applied, may do activities as tolerated, f/u in 2 weeks. documented in this encounter [facility] 03-29-2024 History of Present illness Narrative Images from the original note were not included. Subjective Patient ID: Carla Irby is a 64 y.o. female. LT Wrist (Referral [facility]) Pt is RT handed. C/o non-healing blister/wound to the left palm she obtained while mowing the lawn 4 weeks ago. 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 Endorses a history of surgery to the left wrist with pins present, she believes around 13 years ago. Has been using antibiotic ointment and bandage on the open blister but has noticed blistering, crusting drainage surrounding the wound for the past several days. Denies fevers, chills, nausea, vomiting, diarrhea, numbness or tingling in the left hand, wrist, or arm. Concerned for infection in the left wrist. Went to PCP whom then sent her to [facility] ER on 03/24/24, put her on ATB cephalexin q6hrs for 5 days, she had xrays done of the left hand in addition Constant pain around base of her thumb, and dorsum of hand and wrist, and ulnar aspect of hand. Denies radiation. Admits waking at night. She tried using her old brace from her ORIF surgery, w/o relief. Pain is a constant 9-10/10. Describes pain as a deep sharp ache in the bone states the pain feels like the pain she had right after the surgery 13 years ago. Denies N/T. Admits swelling in hand and wrist. Also notes her hand and wrist is warm to touch. Notes when she was a teen she had ezcema and would have similar spots that itch. She has a blister in the center of the palm of her hand. Notes she now has a similar blister on her RT hand in the cneter of her palm. Has tried ice with some relief. Also has been using neosporin and she believes bacitracin. Was taking motrin 800 for pain, now taking Percocet prn she got yesterday. Admits weakness and limited ROM, notes she cannot squeeze her toothpaste tube or lift her coffee cup. 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 She went to [facility] yesterday and they gave her percocet. [place]: XR LT hand 03/24/24/[facility] ER, cephalexin, IBU 800, percocet Objective Ortho Exam Hand/Wrist Musculoskeletal Exam Inspection Left Erythema: none Ecchymosis: mild Edema: mild Palpation Left Wrist tenderness to palpation: radial styloid Palpation additional comments: Diffuse pain in the dorsal hand and into the wrist Range of Motion Range of motion additional comments: Pain with rom of the wrist Neurovascular Left Radial pulse: normal and 2+ Capillary refill: brisk and <3 sec I reviewed the xrays of the left hand done on 03/24/24 at [facility] they are unremarkable for fracture. I reviewed the [facility] er note from 03/24/24, concerned for an infection, pcp sent her to the er, then was put on ATB for 5 days cephalexin q 6 hrs. Assessment/Plan Encounter Diagnoses: ICD-10-CM 1. Left wrist pain M25.532 2. Swelling of left wrist M25.432 methylPREDNISolone (Medrol Dospak) 4 MG tablets 3. 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 Discussion of xrays to include first cmc joint and she understands this, recommend off work till f/U appt documented in this encounter [facility] Evaluation note No assessment inform ation available [facility] Work Phone: Evaluation note Diagnosis Onset Date Swelling of joint, wrist, left acute [facility] Work Phone: Evaluation note* Diagnosis Left wrist pain- Primary Pain in joint, forearm Swelling of left wrist Arthritis of carpometacarpal (CMC) joint of left thumb Arthritis of left wrist [facility] Diagnosis Rash and other nonspecific skin eruption [facility] Diagnosis Left wrist pain- Primary Pain in joint, forearm Swelling of left wrist Arthritis of carpometacarpal (CMC) joint of left thumb Arthritis of left wrist Ganglion of left wrist [facility]* Diagnosis 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) [facility]* Diagnosis Anxiety and depression- Primary Personal history of nicotine dependence Cigarette smoker Tobacco use disorder Essential hypertension Unspecified essential hypertension Tobacco use Menopausal state Symptomatic menopausal or female climacteric states Screening for malignant neoplasm of breast Breast screening, unspecified Anxiety and depression Benign essential HTN [facility] Diagnosis Left wrist pain- Primary Pain in joint, forearm Swelling of left wrist Arthritis of left wrist [facility]* Diagnosis Left wrist pain- Primary Pain in joint, forearm Swelling of left wrist Arthritis of left wrist Arthritis of carpometacarpal (CMC) joint of left thumb [facility]* Diagnosis Allergic contact dermatitis, unspecified trigger- Primary [facility]* Diagnosis Acute pain of left knee- Primary Effusion of left knee Polyarthralgia Pain in joint, multiple sites Left wrist effusion [facility]* Diagnosis Polyarthralgia- Primary Pain in joint, multiple sites Effusion of left knee documented in [facility] encounter [facility] Additional Instructions Please return to emergency department for any new or worrisome symptoms including any fever, vomiting, increased redness or swelling to your hand or arm or if you develop any numbness, weakness, tingling. Follow-up with your family physician and Dr. Preciado as directed. Take all antibiotics even if you start feeling better.[facility] Work Phone: InstructionsNot on filedocumented in this encounter [facility] (narrative)* Consultation (Routine) - Pending Review Specialty Diagnoses / Procedures Referred By Contact Referred To Contact Occupational Therapy / Physical Therapy Diagnoses Left wrist pain Swelling of left wrist Arthritis of left wrist Procedures NM OFFICE/OUTPATIENT NEW HIGH MDM 60 MINUTES Carmen Yap NP [address] [place] [address] Karena Levin OT [address] [place] [address] Referral ID Status Reason Start Date Expiration Date Visits Requested Visits Authorized [id number] Pending Review Consult and Treat 04/26/2024 10/23/2024 1 1 [facility] [place] for referral (narrative)* Consultation (Routine) - Closed Specialty Diagnoses / Procedures Referred By Contac t Referred To Contact Dermatology Diagnoses bilateral hand lesions in the palm Procedures NM OFFICE/OUTPATIENT NEW HIGH MDM 60 MINUTES Carmen Yap NP [address] [place] [address] Isabella Lozoya, C[employer] P[employer]LIFE COACH [address] [place] [address] Referral ID Status Reason Start Date Expiration Date V isits Requested Visits Authorized [id number] Closed Specialty Services Required 04/12/2024 10/09/2024 1 1 * Orthopedic (Routine) - Closed Specialty Diagnoses / Procedures Referred By Contac t Referred To Contact Orthopaedic Surgery Diagnoses Arthritis of carpometacarpal (CMC) joint of left thumb Procedures S Inj/Asp: L thumb [facility] Carmen Yap NP [address] [place] [address] Referral ID Status Reason Start Date Expiration Date Visits Re quested Visits Authorized [id number] Closed 04/12/2024 10/09/2024 1 1 [facility] Summary Purpose Family History No Family History Records Found Relationship Condition Age at Onset Recorded Date/T mychal father Hypertension Unknown mother Heart disease Unknown Advance Directives No Advanced Directives Records Found Advance Directive Response Recorded Date/ Time Advance Directives No March 1:43pm Chief Complaint and Reason for Visit Chief Complaint L hand infection Chief Complaint L hand infection lt hand pain Reason for Visit Swelling of joint, w rist, left Chief Complaint L hand infection lt hand pain pain in hand and wrist Reason for Visit Swelling of joint, w rist, left Additional Source Comments INFORMATION SOURCE (unrecogn ized section and content) DATE CREATED AUTHOR 07/02/2022 [facility] DATE CREATED AUTHOR AUTHOR'S ORGANIZ ATION 12/04/2023 [facility] DATE CREATED AUTHOR AUTHOR'S ORGANIZ ATION 04/10/2024 [facility] DATE CREATED AUTHOR AUTHOR'S ORGANIZ ATION 07/08/2024 [facility] DATE CREATED AUTHOR AUTHOR'S ORGANIZ ATION 07/30/2024 [facility] EPIC Care Teams (unrecognized sec tion and content) Team Status: Active Member Role Status Dates GEETA Quispe Primary Care Provider Active Team Status: Inactive Member Role Status Dates Pamela INMAN APRN Attending Provider Active Start: March 24, 2024 End: March 24, 2024 GEETA Quispe Primary Care Provider Active Start: March 24, 2024 End: March 24, 2024 Team Status: Inactive Member Role Status Dates GEETA Quispe Primary Care Provider Active Start: March 24, 2024 End: March 24, 2024 Apurva Martinez MD Emergency Provider Active Start: March 24, 2024 End: March 24, 2024 Team Status: Inactive Member Role Status Dates GEETA Quispe Primary Care Provider Active Start: March 28, 2024 End: March 28, 2024 Randell Ledbetter MD Emergency Provider Active St art: March 28, 2024 End: March 28, 2024 Manager Etl Relationship Specialty Start Date End Date Unallocated, Dotty Robert MD [address] [facility] [place] [address] PCP - General Family Medicine 04/12/24 Yola Herr CRNP [address] [place] [address] Referring Physician Nurse Practitioner 03/29/24 Manager Etl Relationship Specialty Start Date End Date Unallocated, Dotty Robert MD [address] [place] [address] PCP - General Family Medicine 04/12/24 Yola Herr CRNP [address] [place] [address] Referring Physician Nurse Practitioner 03/29/24 Manager Etl Relationship Specialty Start Date End Date Unallocated, Dotty Robert MD [address] [place] [address] PCP - General Family Medicine 04/12/24 Yola Herr CRNP [address] [place] [address] Referring Physician Nurse Practitioner 03/29/24 Manager Etl Relationship Specialty Start Date End Date Unallocated, Dotty Robert MD [address] [place] [address] PCP - General Family Medicine 04/12/24 Yola Herr CRNP [address] [place] [address] Referring Physician Nurse Practitioner 03/29/24 Manager Etl Relationship Specialty Start Date End Date Unallocated, Dotty Robert MD [address] [facility] [address] PCP - General Family Medicine 04/12/24 Yola Herr CRNP [address] [place] [address] Referring Physician Nurse Practitioner 03/29/24 Manager Etl Relationship Specialty Start Date End Date Unallocated, Dotty Robert MD [address] [place] [address] PCP - General Family Medicine 04/12/24 Yola Herr CRNP [address] [place] [address] Referring Physician Nurse Practitioner 03/29/24 Manager Etl Relationship Specialty Start Date End Date Unallocated, Dotty Robert MD [address] [place] [address] PCP - General Family Medicine 04/12/24 Yola Herr CRNP [address] [place] [address] Referring Physician Nurse Practitioner 03/29/24 Manager Etl Relationship Specialty Start Date End Date Unallocated, Dotty Robert MD [address] [place] [address] PCP - General Family Medicine 04/12/24 Yola Herr CRNP [address] [place] [address] Referring Physician Nurse Practitioner 03/29/24 Manager Etl Relationship Specialty Start Date End Date Yola Herr, [employer] [address] [place] [address] PCP - General Family Medicine 07/05/19 Manager Etl Relationship Specialty Start Date End Date Yola Herr CRNP [address] [place] [address] Referring Physician Nurse Practitioner 03/29/24 Manager Etl Relationship Specialty Start Date End Date Yola Herr CRNP [address] [place] [address] Referring Physician Nurse Practitioner 03/29/24 Manager Etl Relationship Specialty Start Date End Date Unallocated, Dotty Robert MD [address] [facility] [address] PCP - General Family Medicine 04/12/24 Yola Herr CRNP [address] [place] [address] Referring Physician Nurse Practitioner 03/29/24 Manager Etl Relationship Specialty Start Date End Date Unallocated, Dotty Robert MD [address] [place] [address] PCP - General Family Medicine 04/12/24 Yola Herr CRNP [address] [place] [address] Referring Physician Nurse Practitioner 03/29/24 Manager Etl Relationship Specialty Start Date End Date Unallocated, Dotty Robert MD [address] [place] [address] PCP - General Family Medicine 04/12/24 Yola Herr CRNP [address] [place] [phone] Referring Physician Nurse Practitioner 03/29/24 Manager Etl Relationship Specialty Start Date End Date Unallocated, Noms MD Jakob [address] [place] [address] PCP - General Family Medicine 04/12/24 Yola Herr CRNP [address] [place] [address] Referring Physician Nurse Practitioner 03/29/24 Manager Etl Relationship Specialty Start Date End Date Unallocated, Dotty Robert MD [address] [place] [address] PCP - General Family Medicine 04/12/24 Yola Herr CRNP [address] [place] [address] Referring Physician Nurse Practitioner 03/29/24 Goals (unrecognized section and content) Goals may be documented in a n alternate sectionGoals may be documented in an alternate sectionGoals may be documented in an alternate sectionNot on filedocumented as of this encounter Reason for Visit (unrecogniz ed section and content) Reason Comments Follow-up Reason Comments Follow-up Reason Onset Date Comments OT Initial Eval 04/27/2024 Called to inform off referral per Fracisco a $25.00 copay at dos is required. She said due to time availability she will need to contact me back re: OT treatment hours are her work hours; she will call back. Reason Comments Pain Reason Comments Med Refill Reason Comments Pain Reason Comments Follow-up Reason Comments Suspicious Skin Lesion Specialty Diagnoses / Procedures Referred By Luisa espino Referred To Contact Dermatology Diagnoses bilateral hand lesions in the palm Procedures NM OFFICE/OUTPATIENT NEW HIGH MDM 60 MINUTES Carmen Yap, SARA [address] [place] [address] Isabella Lozoya, [employer] [address] [place] [address] Referral ID Status Reason Start Date Expiration Date V isits Requested Visits Authorized [id number] Closed Specialty Services Required 04/12/2024 10/09/2024 1 1 FOR RECORDS PERTAINING TO PATIENTS WHO ARE OR HAVE BEEN ENROLLED IN A CHEMICAL DEPENDENCY/SUBSTANCEABUSE PROGRAM, SOME INFORMATION MAY BE OMITTED. This clinical summary was aggregated from multiple sources. Caution should be exercised in using it in the provision of clinical care. This summary normalizes information from multiple sources, and as a consequence, information in this document may materially change the coding, format and clinical context of patient data. In addition, data may be omitted in some cases. CLINICAL DECISIONS SHOULD BE BASED ON THE PRIMARY CLINICAL RECORDS. [facility]. provides no warranty or guarantee of the accuracy or completeness of information in this document.
--- NOTE | 2024-08-12 02:51 | XR_ITS ---
The [address] [address] Patient Name: CARLA HERNANDEZ MRN: [id number] date: 1960 Sex: F Assigned Patient Location: ER Current Patient Location: ED.MAIN Accession/Order Number: [id number] Exam Date: 08/12/2024 03:15 Report Date: 08/12/2024 04:23 At the request of: KURT CHIU Procedure: XR chest 1V EXAMINATION: XR chest 1V HISTORY: SOB COMPARISON: XR chest 04/09/2012 FINDINGS: LUNGS: Mild opacities and stranding within lung bases. Indistinctness of the left diaphragm margin. VASCULATURE: No increased pulmonary vasculature. PLEURA: No pneumothorax, effusion, or pleural thickening. CARDIAC: No cardiomegaly or cardiac silhouette abnormality. MEDIASTINUM: No visible mass or adenopathy. BONES: No fracture or visible bone lesion. OTHER: Negative. XR/XR chest 1V IMPRESSION: 1. Mild bibasilar infiltrates versus atelectasis. Electronically authenticated by: RIDDHI VELASCO Date: 08/12/2024 04:23
--- NOTE | 2024-08-12 02:51 | ECG_ITS ---
The [facility] Test Date: 2024-08-12 Pat Name: CARLA HERNANDEZ Department: Room: - Gender: Female Director Long Term Care: : 1960 Requested By: Annel Herr Order Number: [id number] Reading MD: DOUG SCHWARTZ Measurements Intervals [place] Rate: 94 P: 70 ID: [id number] QRS: 52 QRSD: 90 T: 33 QT: 346 QTc: 398 Interpretive Statements 1100 Sinus rhythm 1470 with occasional supraventricular premature complexes 9140 abnormal rhythm ECG No previous ECG available for comparison Electronically Signed On 08-12-2024 6:45:09 EST by DOUG SCHWARTZ
--- NOTE | 2024-08-12 02:52 | ED_ITS ---
HPI HPI - General Adult General Chief complaint: Shortness of Breath/Dyspnea Stated complaint: SOB Time Seen by Provider: 08/12/24 02:38 History of Present Illness HPI narrative: 64-year-old female presents for shortness of breath. She has had it for few days. She states when she takes in a deep breath it hurts in the middle part of her chest. She has never had symptoms like this before. No injury or fever. Her ankles have been swollen for more than a month. She smokes cigarettes and has never been diagnosed with COPD. She has no personal history of pulmonary embolism. No fever or productive cough. Related Data Home Medications ?Medication ?Instructions ?Recorded ?Confirmed alendronate 70 mg tablet mg PO 08/12/24 amlodipine 10 mg-benazepril 40 mg cap 08/12/24 capsule escitalopram oxalate 20 mg tablet mg 08/12/24 folic acid 1 mg tablet 08/12/24 methotrexate sodium 2.5 mg tablet mg 08/12/24 prednisone 20 mg tablet mg 08/12/24 tramadol 50 mg tablet mg 08/12/24 Previous Rx's ?Medication ?Instructions ?Recorded albuterol sulfate 90 mcg/actuation 2 inh inhalation Q4H PRN shortness 08/12/24 aerosol inhaler of breath or wheezing #8.5 grams azithromycin 250 mg tablet See Rx Instructions PO .COMPLEX #6 08/12/24 (Zithromax Z-Venancio) tabs Allergies Allergy/AdvReac Type Severity Reaction Status Date / Time No Known Drug Allergies Allergy Verified 08/12/24 02:46 Opioid HPI Opioid Management Most Recent Opioid Data: Last Pain Scale 7 08/12/24 05:15 08/12/24 Last MAR Pain Assessment 08/12/24 05:15 Review of Systems ROS Narrative A ten point review of systems is negative except as noted above. PFSH PFSH Social History Little interest or pleasure in doing things: not at all Feeling down, depressed, or hopeless: not at all Exam Narrative Exam Narrative: Nurses note and vital signs reviewed and patient is not hypoxic. General: The patient appears well and in no apparent distress. She is speaking in full sentences. Patient is resting comfortably on cart. Skin: Warm, dry, no pallor noted. There is no rash noted. Head: Normocephalic, atraumatic Eye: Normal conjunctiva, no drainage Ears, Nose, Mouth, and Throat: oral mucosa is moist. Nares patent. Cardiovascular: Regular Rate and Rhythm Respiratory: Patient is in no distress, no accessory muscle use, lungs are clear to auscultation, no wheezing, rales or rhonchi. Good air movement present Back: non-tender GI: Soft and nontender Musculoskeletal: The patient has no evidence of calf tenderness, she does have bilateral pitting ankle edema Neurological: A&O, normal speech Psychiatric: Cooperative Constitutional Vital Signs, click to edit/add: Last Vital Signs Temp 97.9 F 08/12/24 03:00 Pulse 94 H 08/12/24 05:40 Resp 21 H 08/12/24 05:40 BP 151/86 H 08/12/24 03:00 Pulse Ox 88 L 08/12/24 05:41 O2 Del Method Room Air 08/12/24 05:41 Course Vital Signs Vital signs: Vital Signs Pulse Oximetry 99 08/12/24 02:56 Temperature 97.9 F 08/12/24 03:00 Pulse Rate 94 H 08/12/24 05:40 Respiratory Rate 21 H 08/12/24 05:40 Blood Pressure 151/86 H 08/12/24 03:00 Pulse Oximetry 88 L 08/12/24 05:41 Oxygen Delivery Method Room Air 08/12/24 05:41 Medical Decision Making MDM Narrative Medical decision making narrative: D-dimer is elevated but CTA shows no evidence of PE. CT suggested the possibility of pneumonia and she is placed on Zithromax and an inhaler. Findings of COPD are present on CAT scan as well and this was discussed with the patient. Treatment diagnosis and follow-up were discussed thoroughly. Differential Diagnosis Differential Diagnosis: PE, pneumonia, pneumothorax, acute coronary syndrome Lab Data Lab results reviewed: Yes I reviewed the patient's lab results Labs: Lab Results 08/12/24 08/12/24 Range/Units 03:05 03:16 WBC 12.3 H (4.0-11.0) 10^3/uL RBC 3.89 L (4.20-5.40) 10^6/uL Hgb 10.3 L (12.0-16.0) g/dL Hct 32.5 L (36.0-48.0) % MCV 83.5 (81.0-99.0) fL MCH 26.5 L (26.7-34.0) pg MCHC 31.7 (29.9-35.2) g/dL RDW 13.8 (11.0-15.0) % Plt Count 401 (150-450) 10^3/uL MPV 9.1 L (9.5-13.5) fL Neut % (Auto) 76.4 H (43.0-75.0) % Lymph % (Auto) 15.4 L (20.5-60.0) % [place] % (Auto) 5.5 (1.7-12.0) % Eos % (Auto) 2.2 (0.9-7.0) % Baso % (Auto) 0.3 (0.2-2.0) % Neut # (Auto) 9.4 H (1.4-6.5) 10^3/uL Lymph # (Auto) 1.9 (1.2-3.8) 10^3/uL [place] # (Auto) 0.7 (0.3-0.8) 10^3/uL Eos # (Auto) 0.3 (0.0-0.7) 10^3/uL Baso # (Auto) 0.0 (0.0-0.1) 10^3/uL Abs Immat Gran (auto) 0.03 (0.00-0.03) 10^3/uL Imm/Tot Granulo (auto) 0.2 (0.0-0.5) % D-Dimer 8.54 H* (<=0.59) mg/L FEU Sodium 141 (136-145) mmol/L Potassium 3.5 (3.5-5.1) mmol/L Chloride 104 (98-107) mmol/L Carbon Dioxide 26.9 (21.0-32.0) mmol/L Anion Gap 13.6 BUN 18.0 (7.0-18.0) mg/dL Creatinine 0.62 (0.55-1.02) mg/dL Est GFR ( Amer) >60 (>=60 mL/min/1.73m^2) Est GFR (Non-Af Amer) >60 (>=60 mL/min/1.73m^2) BUN/Creatinine Ratio 29.0 Glucose 119 H (74-106) mg/dL Calcium 8.5 (8.5-10.1) mg/dL Troponin I High Sens 8.6 (4.0-51.3) pg/mL NT-Pro-B Natriuret Pep 610.0 (<=900.0) pg/mL Influenza Type A Ag Negative Influenza Type B Ag Negative SARS-CoV-2 Ag (CV2AG) Negative (NEGATIVE) Imaging Data Chest x-ray: Radiologist's impression: ITS Impressions Chest X-Ray 08/12/24 02:51 IMPRESSION: 1. Mild bibasilar infiltrates versus atelectasis. Electronically authenticated by: RIDDHI VELASCO Date: 08/12/2024 04:23 Chest CTA 08/12/24 04:53 IMPRESSION: 1. No pulmonary embolism. 2. Small bilateral pleural effusions with mild bibasilar atelectasis versus infiltrates. Electronically authenticated by: RIDDHI VELASCO Date: 08/12/2024 05:44 ECG Data Attestation: I personally reviewed and interpreted this ECG as follows: (EKG on my interpretation shows sinus rhythm with a rate of 94 no acute change) Discharge Plan Discharge Chief Complaint: Shortness of Breath/Dyspnea Clinical Impression: Pneumonia Patient Disposition: Home, Self-Care Time of Disposition Decision: 05:52 Condition: Good Mode of Transportation: Private Vehicle Prescriptions / Home Meds: New azithromycin [Zithromax Z-Venancio] 250 mg tablet See Rx Instructions .ROUTE .COMPLEX Qty: 6 0RF Rx Instructions: For 250 mg dose pack: take 500 mg today (day 1), then 250 mg for 4 days (days 2-5) albuterol sulfate 90 mcg/actuation HFA aerosol inhaler 2 inh inhalation Q4H PRN (Reason: shortness of breath or wheezing) Qty: 8.5 0RF No Action prednisone 20 mg tablet alendronate 70 mg tablet PO tramadol 50 mg tablet methotrexate sodium 2.5 mg tablet folic acid 1 mg tablet escitalopram oxalate 20 mg tablet amlodipine-benazepril 10-40 mg capsule Print Language: Haitian Instructions: COPD (Chronic Obstructive Pulmonary Disease) (ED), Community Acquired Pneumonia (ED) Referrals: YOLA AGUSTIN [Primary Care Provider] - 1 week
[2024-08-12 03:23] LABS: Basophils Percent Auto 0.3 % (0.2-2.0); Eosinophils Absolute Auto 0.3 10^3/uL (0.0-0.7); Eosinophils Percent Auto 2.2 % (0.9-7.0); Hematocrit 32.5 % (36.0-48.0); Hemoglobin 10.3 g/dL (12.0-16.0); Immature Granulocytes Abs Auto 0.03 10^3/uL (0.00-0.03); Immature Granulocytes Pct Auto 0.2 % (0.0-0.5); Lymphocytes Absolute Auto 1.9 10^3/uL (1.2-3.8); Lymphocytes Percent Auto 15.4 % (20.5-60.0); Mean Corpuscular HGB Conc 31.7 g/dL (29.9-35.2); Mean Corpuscular Hemoglobin 26.5 pg (26.7-34.0); Mean Corpuscular Volume 83.5 fL (81.0-99.0); Mean Platelet Volume 9.1 fL (9.5-13.5); Monocytes Absolute Auto 0.7 10^3/uL (0.3-0.8); Monocytes Percent Auto 5.5 % (1.7-12.0); Neutrophils Absolute Auto 9.4 10^3/uL (1.4-6.5); Neutrophils Percent Auto 76.4 % (43.0-75.0); Platelet Count 401 10^3/uL (150-450); Red Blood Count 3.89 10^6/uL (4.20-5.40); Red Cell Distribution Width 13.8 % (11.0-15.0); White Blood Count 12.3 10^3/uL (4.0-11.0)
[2024-08-12 03:42] LABS: Anion Gap 13.6; Calcium 8.5 mg/dL (8.5-10.1); Carbon Dioxide 26.9 mmol/L (21.0-32.0); Chloride 104 mmol/L (98-107); Estimated GFR (African America >60 (>=60 mL/min/1.73m^2); Estimated GFR (Non-African Ame >60 (>=60 mL/min/1.73m^2); Glucose 119 mg/dL (74-106); Potassium 3.5 mmol/L (3.5-5.1); Sodium 141 mmol/L (136-145)
[2024-08-12 03:50] LABS: Troponin I High Sensitivity 8.6 pg/mL (4.0-51.3)
[2024-08-12 04:11] LABS: Influenza Virus A Antigen Negative; Influenza Virus B Antigen Negative; Internal Control Within Normal Limits; SARS-CoV-2 Ag NEGATIVE (NEGATIVE)
[2024-08-12 04:53] LABS: D Dimer 8.54 mg/L FEU (<=0.59)
--- NOTE | 2024-08-12 04:53 | CT_ITS ---
[address] [address] Patient Name: CARLA HERNANDEZ MRN: [id number] date: 1960 Sex: F Assigned Patient Location: ER Current Patient Location: Accession/Order Number: [id number] Exam Date: 08/12/2024 05:15 Report Date: 08/12/2024 05:44 At the request of: KURT CHIU Procedure: CT angio chest EXAMINATION: CT angio chest HISTORY: Short of breath, elevated D-dimer, rule out PE COMPARISON: CT Lung Screening 06/14/2022 TECHNIQUE: Multi-planar CT images were created with IV contrast. Axial, Coronal, and Sagittal images. Dose reduction techniques were achieved by using automated exposure control and/or adjustment of mA and/or kV according to patient size and/or use of iterative reconstruction technique. 3-D reconstruction was performed on a separate workstation. FINDINGS: VASCULATURE: No pulmonary embolism or abnormal opacity. LUNGS: Mild emphysematous changes. Mild atelectasis versus infiltrates within the dependent lung bases. PLEURA: Bilateral pleural effusions, 1.0 cm in thickness on right, 1.6 cm on left. IJEOMA: No mass or adenopathy. MEDIASTINUM: No mass or adenopathy. CARDIAC: No enlargement, pericardial effusion, or pericardial thickening. AORTA: No aneurysm or dissection. CHEST WALL: Grossly stable small hypodense nodules versus colloid cysts within thyroid lobes. No axillary mass or lymphadenopathy. BONES: No bone lesion or fracture. LIMITED ABDOMEN: No suspicious findings. Limited images of the upper abdomen. OTHER: Negative. CT/CT angio chest IMPRESSION: 1. No pulmonary embolism. 2. Small bilateral pleural effusions with mild bibasilar atelectasis versus infiltrates. Electronically authenticated by: RIDDHI VELASCO Date: 08/12/2024 05:44
--- NOTE | 2024-08-12 04:55 | PC.NURSE ---
lab dept called with a critical D-Dimer = 8.54, Dr Ehceverria has informed of this D-Dimer of 8.54
[2024-08-12] MEDS: KETOROLAC TROMETHAMINE 30 MG/ML VIAL IVP (05:15)
--- NOTE | 2024-08-12 05:41 | PC.NURSE ---
Pt attempting to sleep, and SPO2 at 87-88% RA. O2 started at 3L/NC. O2 back up to 96% 3L. RR is 18 and regular.
== END 2024-08-12 06:20 | disposition home or self-care (01) ==
PROVIDERS: Emergency Provider Emergency Medicine; PCP Nurse Practitioner
DX: J18.9 Pneumonia, unspecified organism (principal); R06.02 Shortness of breath; F17.210 Nicotine dependence, cigarettes, uncomplicated; R60.0 Localized edema; R79.89 Other specified abnormal findings of blood chemistry
CPT/HCPCS: 36415; 71045; 71275; 80048; 83880; 84484; 85025; 85378; 87804; 87811; 93005; 94664; 96374; 99285; J1885; Q9967

== ENCOUNTER 2024-09-02 15:26 | Outpatient (OUT) | payer BC, SELFPAY ==
--- OUTSIDE RECORDS SUMMARY | 2024-09-02 15:33 | XMS_ITS | CCD ---
Author Organization [facility] Care Team Providers Care Payroll Analyst Name Role Phone YOLA HERR Admitting Unavailable HERRYOLA Attending Unavailable HERR, YOLA Primary Care Unavailable ED DIXON Consulting Unavailable HERRYOLA Consulting Unavailable HERR, YOLA Admitting Unavailable HERR, YOLA Attending Unavailable HERR, YOLA Primary Care Unavailable MAX, DR IRVING Bacon Consulting Unavailable Zieber, DR Rivera Consulting Unavailable HERR, YOLA Consulting Unavailable HERR, YOLA Admitting Unavailable HERR, YOLA Attending Unavailable HERR, YOLA Primary Care Unavailable HERR, YOLA Consulting Unavailable HERR, YOLA Admitting Unavailable HERR, YOLA Attending Unavailable HERR, YOLA Primary Care Unavailable Nemesio, NIGHT AUDITOR-C Yola Villagomez Primary Care Provider MD Apurva Martinez Emergency Provider MD Randell Ledbetter Emergency Provider Yola Herr Primary Care Unavailable Randell Ledbetter Attending Unavailable Randell Ledbetter Admitting Unavailable Apurva Martinez Admitting Unavailable Yola Herr Primary Care Unavailable Apurva Martinez Attending Unavailable Yola Ureña Unavailable Unallocated , [place] Provider Primary Care Provi jany Nemesio SUPERVISOR LANDSCAPE-Yola SALAMANCA Primary Care Provid er YOLA HERR Referring Unavailable YOLA HERR Primary Care Unavailable YOLA HERR Referring Unavailable YOLA HERR Primary Care Unavailable YOLA HERR Referring Unavailable YOLA HERR Primary Care Unavailable YOLA HERR Referring Unavailable YOLA HERR Primary Care Unavailable Unallocated Hubert BRADLEYs Provider Primary Care Provi jany CARMEN YAP Attending Unavailable CARMEN YAP Attending Unavailable CARMEN YAP Referring Unavailable ISABELLA LOZOYA Attending Unavailable CARMEN YAP Referring Unavailable CARMEN YAP Attending Unavailable ISAEBLLA LOZOYA Attending Unavailable CARMEN YAP Attending Unavailable ISABELLA LOZOYA Attending Unavailable IRENE FENG Attending Unavailable IRENE FENG Referring Unavailable YOLA HERR Attending Unavailable YOLA HERR Referring Unavailable YOLA HERR Primary Care Unavailable YOLA HERR Referring Unavailable YOLA HERR Primary Care Unavailable YOLA HERR Referring Unavailable YOLA HERR Primary Care Unavailable YOLA HERR Attending Unavailable YOLA HERR Referring Unavailable YOLA HERR Primary Care Unavailable Medications Current Medications Medication Drug Class(es) Dates Sig (Normalized) Sig (Original) 8 hr acetaminophen 650 mg extended release oral tablet (1 source) take 1 tablet by mouth every eight hours as needed for pain acetaminophen (TYLENOL ARTHRITIS) 650 mg 8 hr tablet Take 1 tablet (650 mg total) by mouth every 8 (eight) hours as needed for pain. Active [id number] 200 actuat albuterol 0.09 mg/actuat metered dose inhaler (1 source) beta2-Adrenergic Agonist Start: 08-12-2024 take 2 puff(s) by inhalation every four hours as needed albuterol (PROVENTIL HFA;VENTOLIN HFA) 90 mcg/actuation inhaler INHALE 2 PUFFS EVERY 4 HOURS NEEDED FOR SHORTNESS OF BREATH OR FOR WHEEZE 08/12/2024 Active amLODIPine 10 mg / benazepril hydrochloride 40 mg oral capsule (20 sources) Dihydropyridine Calcium Channel Susu, Angiotensin Converting Enzyme Inhibitor Start: 03-24-2024 take 1 capsule by mouth once daily Amlodipine-Benazep ril Active 1 CAP PO Daily March 24, 2024 12:00am Start: 11-17-2023 amLODIPine-dania azepril (Lotrel) 10-40 MG capsule 1 capsule 11/17/2023 Active Start: 05-07-2023 End: 06-14-2024 take 1 capsule by mouth once in the morning amLODIPine-benazepril (LOTREL) 10-40 mg per capsule Indications: Benign essential HTN TAKE 1 CAPSULE BY MOUTH IN THE MORNING 90 capsule 1 06/14/2024 Active amoxicillin 875 mg / clavulanate 125 mg oral tablet (1 source) Penicillin-class Antibacterial Start: 08-19-2024 End: 08-29-2024 take 1 tablet by mouth once in the morning amoxicillin-pot clavulanate (AUGMENTIN) 875-125 mg per tablet Indications: Community acquired pneumonia, unspecified laterality Take 1 tablet by mouth in the morning and 1 tablet before bedtime. Do all this for 10 days. 20 tablet 08/19/2024 08/29/2024 Active betamethasone 0.5 mg/ml topical cream (19 sources) [...] tablet (20 sources) Serotonin Reuptake Inhibitor Start: 05-07-2023 End: 06-14-2024 take 1 tablet by mouth once daily escitalopram (LEXAPRO) 20 mg tablet Indications: Anxiety and depression TAKE 1 TABLET BY MOUTH DAILY 90 tablet 1 06/14/2024 Active fluocinonide 1 mg/ml topical cream (1 source) Corticosteroid Start: 03-28-2024 Fluocinonide Active 1 APPLIC TOPICAL Twice daily March 28, 2024 12:00am fluticasone propionate 0.05 mg/actuat metered dose nasal spray (4 sources) Corticosteroid Start: 04-19-2019 take 1 spray(s) nasal route once daily fluticasone propionate (FLONASE) 50 mcg/actuation nasal spray Indications: Pharyngitis, unspecified etiology Administer 1 spray into each nostril daily. 15.8 mL 2 04/19/2019 Active folic acid 1 mg oral tablet (1 source) Start: 08-11-2024 folic acid (FOLVITE) 1 mg tablet Take 1 tablet (1,000 mcg total) by mouth. 08/11/2024 Active hydroCHLOROthiazide 12.5 mg oral tablet (3 sources) Thiazide Diuretic Start: 06-03-2023 End: 11-17-2023 take 1 tablet by mouth once daily hydroCHLOROthiazide (HYDRODIURIL) 12.5 mg tablet Indications: Benign essential HTN take 1 tablet by mouth daily 90 tablet 1 11/17/2023 Active ibuprofen 800 mg oral tablet (20 sources) Nonsteroidal Anti-inflammatory Drug Start: 07-29-2022 take 1 tablet by mouth every eight hours as needed ibuprofen (MOTRIN) 800 mg tablet Indications: Lumbar back pain with radiculopathy affecting right lower extremity TAKE 1 TABLET BY MOUTH EVERY 8 HOURS NEEDED FOR PAIN*TAKE WITH FOOD* 60 tablet 2 07/29/2022 Active methotrexate 2.5 mg oral tablet (1 source) Folate Analog Metabolic Inhibitor Start: 08-11-2024 take 6 tablets by mouth every week methotrexate 2.5 mg chemo tablet TAKE 6 TABLETS BY MOUTH EVERY WEEK 08/11/2024 Active predniSONE 20 mg oral tablet (3 sources) Start: 08-19-2024 predniSONE (DELTASONE) 20 mg tablet Indications: Community acquired pneumonia, unspecified laterality Take 1 tablet (20 mg total) by mouth See Admin Instructions. 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 90 tablet 08/19/2024 Active VTAMA 1 % cream (1 source) Start: 06-10-2024 VTAMA 1 % crea m Apply 1 Application topically in the morning. 06/10/2024 Active Completed/Discontinued Medications Medication Drug Class(es) Dates Sig (Normalized) Sig (Original) acetaminophen 325 mg / oxyCODONE hydrochloride 5 mg oral tablet (6 sources) Opioid Agonist Start: 4 End: 4 oxyCODONE-acetaminophe n (Percocet) 5-325 MG tablet Daily at bedtime 03/28/2024 04/12/2024 Discontinued (Med list cleanup) alendronic acid 70 mg oral tablet (1 source) Bisphosphonate Start: 4 End: 5 take 1 tablet by mouth in the morning alendronate (FOSAMAX) 70 mg tablet Indications: Age-related osteoporosis without fracture Take 1 tablet (70 mg total) by mouth every 7 days. In a.m. with water on empty stomach, nothing else by mouth and remain upright for 30min 12 tablet 3 07/06/2024 08/19/2024 Discontinued (Therapy completed) 1 ml methylPREDNISolone acetate 40 mg/ml injection (20 sources) Corticosteroid Start: End: methylPREDNISolone acetate (DEPO-Medrol) injection 40 mg Start: 07-19-2024 End: 07-19-2024 40 mg, Intra-articular, Once PRN Procedure, Starting on Fri07/19/24 at 0300, For 1 dose Start: 05-24-2024 methylPREDNISo lone (MEDROL, RADHA,) 4 mg tablet Follow schedule on package instructions 05/24/2024 Active Start: 05-24-2024 End: 07-19-2024 methylPREDNISolone (Medrol D [...] dermatitis, unspecified cause] 04-12-2024 Episodic Anxiety disorders (10 sources) Anxiety; Translations: [Anxiety disorder, unspecified] Onset: 02-20-2017 03-24-2024 Chronic Essential hypertension (11 sources) Hypertensive disorder; Translations: [Essential (primary) hypertension] Onset: 02-24-2017 03-24-2024 Chronic Menopausal disorders (4 sources) Menopausal syndrome; Translations: [Menopausal and female climacteric states] Onset: 07-25-2018 07-25-2018 Chronic Mood disorders (1 source) Depression Onset: 12-02-2023 Chronic Mood disorders (5 sources) Mood disorders; Translations: [Depression, unspecified] Onset: 06-03-2023 Resolved: 12-02-2023 12-02-2023 Osteoarthritis (14 sources) Arthritis of first carpometacarpal [...] [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 Other lower respiratory disease (1 source) Cough Onset: 08-19-2024 Episodic Other non-traumatic joint disorders (2 sources) Swelling [...] [Pain in unspecified joint] 07-19-2024 Episodic Other skin disorders (1 source) Vesicular eczema; Translations: [Dyshidrosis [pompholyx]] 03-28-2024 Episodic Other skin disorders (2 sources) Eruption; Translations: [Rash and other nonspecific skin eruption] 05-03-2024 Episodic Pneumonia (except that caused by tuberculosis or sexually transmitted disease) (2 sources) Community acquired pneumonia; Translations: [Pneumonia, unspecified organism] Onset: 08-19-2024 08-19-2024 Episodic Residual codes; unclassified (5 sources) Asymptomatic [...] use; Translations: [TOBACCO USE] Onset: 06-19-2022 Episodic Residual codes; unclassified (1 source) Insomnia; Translations: [Insomnia, unspecified] 08-19-2024 Episodic Residual codes; unclassified (1 source) Insomnia, unspecified; Translations: [Insomnia, unspecified] Onset: 08-19-2024 Episodic Skin and subcutaneous tissue infections (2 [...] Classification Problem Date Documented Da te Episodic/Chronic Other connective tissue disease (1 source) Pain in right leg; Translations: [PAIN IN RIGHT LEG] Onset: 12-14-2021 Episodic Other screening for suspected conditions (not mental disorders or infectious disease) (12 sources) Encounter for screening mammogram for malignant neoplasm of breast; Translations: [Patient encounter status] Onset: 07-25-2018 07-25-2018 Episodic Residual codes; unclassified (4 sources) Tobacco use and exposure - finding; Translations: [Tobacco use] Onset: 07-25-2018 07-25-2018 Episodic Residual codes; unclassified (4 sources) Menopause present; Translations: [Asymptomatic menopausal state] Onset: 08-30-2019 08-30-2019 Episodic Residual codes; unclassified (1 source) Pain, unspecified; Translations: [Pain, unspecified] Onset: 01-27-2024 Episodic Screening and history of mental health and substance abuse codes (1 source) Personal history of nicotine dependence; Translations: [Personal history of nicotine dependence] Onset: 01-23-2024 Episodic Spondylosis; intervertebral disc disorders; other back problems (4 sources) Radiculopathy, lumbar region; Translations: [RADICULOPATHY LUMBAR REGION] Onset: 12-10-2021 Episodic Unclassified (4 sources) Onset: 06-03-2023 Resolved: 12-02-2023 12-02-2023 Results Test Name Value Interpretation Reference Range Facility XR Knee - left 1 or 2 Viewso n 07-20-2024 Imaging Result: AP and Lateral Left knee weight bearing. No acute fracture or dislocation. Large effusion Joint space narrowing medial compartment near symmetric to right knee. Impression: no acute bony process with joint space narrowing and large joint effusion [facility] Healthcare [facility] No Panel Informationon 07-19 LACEY Jimenez 07/20/2024 [...] and draped in the usual sterile fashion. [facility] [employer] [facility] [employer] XR Knee - left 1 or 2 Viewso n 07-19-2024 Radiology Study observation (narrative) [facility] DEXA SCAN CENTRAL SKELETALon 07-05-2024 DEXA SCAN [...] Marquez MD on 07/05/2024 4:41 PM Normal [facility] No Panel Informationon 05-03 Type of [...] yes Amount of lidocaine used: 0.6 cc [employer] XR Wrist - left 3 Viewson Imaging Result: April 12, 2024 x-rays AP lateral and oblique of the left wrist demonstrate dorsal plate fixation of the distal radius. The plate is intact without signs of loosening or failure. On the oblique/ [facility] view there is marked sclerosis at the base of the trapezium at the scaphoid trapezial joint. The joint is narrowed and [id number] is noted. Impression: Pantrapezial arthritis, healed distal radius fracture. Max Preciado D.O. [employer] XR Wrist - left 3 ViewsOrder ed By: Gray Preciado on 04-13-2024 [employer] Work Phone: No Panel Informationon 04-12 Carmen Yap NP 04/14/2024 8:04 AM S Inj/Asp: L thumb [facility] on 04/12/2024 9:52 AM Details: 25 G needle Medications: 20 mg methylPREDNISolone Acetate 20 MG/ML Procedure, treatment alternatives, risks and benefits explained, specific risks discussed. Consent was given by the patient. [facility] [employer] XR Wrist - left 3 Viewson Radiology Study observation (narrative) [facility] [employer] Automated basophil %Ordered By: Randell Ledbetter on 03-28-2024 Basophils/100 WBC (Bld) 0.7 % Normal . [facility] Comment on above: Performed By: #### E SR, CBC #### [address] Automated basophil countOrde red By: Randell Ledbetter on 03-28-2024 Basophils (Bld) [#/Vol] 0.1 10*3/uL Normal 0.0-0.2 [facility] Comment on above: Performed By: #### E SR, CBC #### [address] Automated blood monocyte cou ntOrdered By: Randell Ledbetter on 03-28-2024 Monocytes (Bld) [#/Vol] 0.5 10*3/uL Normal 0.0-0.8 [facility] Comment on above: Performed By: #### E SR, CBC #### [address] Automated eosinophil %Ordere d By: Randell Ledbetter on 03-28-2024 Eosinophils/100 WBC (Bld) 1.5 % Normal . [facility] Comment on above: Performed By: #### E SR, CBC #### [address] Automated eosinophil countOr dered By: Randell Ledbetter on 03-28-2024 Eosinophils (Bld) [#/Vol] 0.1 10*3/uL Normal 0.0-0.45 [facility] Comment on above: Performed By: #### E SR, CBC #### [address] Automated monocyte %Ordered By: Randell Ledbetter on 03-28-2024 Monocytes/100 WBC (Bld) 5.8 % Normal . [facility] [place] Comment on above: Performed By: #### E SR, CBC #### [facility] [address] Automated neutrophil %Ordere d By: Randell Ledbetter on 03-28-2024 Neutrophils/100 WBC (Bld) 66.0 % Normal . [facility] Comment on above: Performed By: #### E SR, CBC #### [facility] [address] Complete Blood Count Auto Di ffon 03-28-2024 Mean Corpuscular HGB Conc 34.4 g/dL Normal 32.0-35.0 [facility] Comment on above: Performed By: #### E SR, CBC #### [facility] [address] Monocytes/100 WBC (Bld) 19.87 % Normal 0.00-20.00 [facility] Comment on above: Performed By: #### E SR, CBC #### [facility] [address] [place] [address] NRBC% 0.1 /100{WBC} Normal 0-0.5 [facility] Comment on above: Performed By: #### E SR, CBC #### [address] ECG 12 lead ECGon 03-28-2024 ECG 12 lead ECG [facility] Main [place] [address] [place] [address] Electrocardiograph Report Signed Patient: Carla Irby MR#: [id number] 74 : 1960 Acct:[id number] Age/Sex: 64 / F ADM Date: 03/28/24 Loc: ER Room: Type: [facility] ER Attending Dr: Ordering Provider: Randell [...] Randell Ledbetter MD 03/13 1551 Normal [facility] Erythrocyte Sedimentation Ra urmila 03-28-2024 ESR (Bld) [Velocity] 20 mm/h Normal 0-29 [facility] Comment on above: Result Comment: PERF ORMED BY: [place] [id number] PATHOLOGIST BULL BUCKER NAFISA LO M.D. Performed By: #### E SR, CBC #### [facility] [address] [place] [address] Erythrocyte distribution wid th [Ratio] by Automated countOrdered By: Randell Ledbetter on 03-28-2024 Erythrocyte distribution width (RBC) [Ratio] 13.1 % Normal 11.9-15.3 [facility] Comment on above: Performed By: #### E SR, CBC #### [address] Erythrocyte sedimentation ra te by Photometric methodOrdered By: Randell Ledbetter on 03-28-2024 ESR Photometric method (Bld) [Velocity] 20 mm/hr 0-29 [facility] Erythrocytes [#/volume] in B lood by Automated countOrdered By: Randell Ledbetter on 03-28-2024 RBC (Bld) [#/Vol] 4.48 10*6/uL Normal 3.60-5.00 [facility] Comment on above: Performed By: #### E SR, CBC #### [address] Hematocrit [Volume Fraction] of Blood by Automated countOrdered By: Randell Ledbetter on 03-28-2024 Hematocrit (Bld) [Volume fraction] 37.9 % Normal 34.0-46.4 [facility] Comment on above: Performed By: #### E SR, CBC #### [address] Hemoglobin [Mass/volume] in BloodOrdered By: Randell Ledbetter on 03-28-2024 Hemoglobin (Bld) [Mass/Vol] 13.0 g/dL Normal 11.8-15.4 [facility] Comment on above: Performed By: #### E SR, CBC #### [address] Leukocytes [#/volume] correc amada for nucleated erythrocytes in Blood by Automated counOrdered By: Randell Ledbetter on 03-28-2024 WBC corrected for nucl RBC Auto (Bld) [#/Vol] 8.0 10*3/uL 3.8-11.6 [facility] Leukocytes [#/volume] in Blo od by Automated countOrdered By: Randell Ledbetter on 03-28-2024 WBC (Bld) [#/Vol] 8.0 10*3/uL Normal 3.8-11.6 [facility] Comment on above: Performed By: #### E SR, CBC #### [address] Lymphocytes [#/volume] in Bl ood by Automated countOrdered By: Randell Ledbetter on 03-28-2024 Lymphocytes (Bld) [#/Vol] 2.1 10*3/uL Normal 1.00-4.8 [facility] Comment on above: Performed By: #### E SR, CBC #### [address] Lymphocytes/100 leukocytes i n Blood by Automated countOrdered By: Randell Ledbetter on 03-28-2024 Lymphocytes/100 WBC (Bld) 26.0 % Normal . [facility] Comment on above: Performed By: #### E SR, CBC #### [place] [address] [place] MCH [Entitic mass] by Automa amada countOrdered By: Randell Ledbetter on 03-28-2024 MCH (RBC) [Entitic mass] 29.1 pg Normal 24.7-34.3 [facility] Comment on above: Performed By: #### E SR, CBC #### [address] MCHC Auto (RBC) [Mass/Vol]Or dered By: Randell Ledbetter on 03-28-2024 MCHC (RBC) [Mass/Vol] 34.4 g/dL 32.0-35.0 [facility] MCV [Entitic volume] by Auto mated countOrdered By: Randell Ledbetter on 03-28-2024 MCV (RBC) [Entitic vol] 84.7 fL Normal 80-100 [facility] [place] Comment on above: Performed By: #### E SR, CBC #### [facility] [address] Monocyte distribution width [Entitic volume] in Blood by AutomatedOrdered By: Randell Ledbetter on 03-28-2024 Monocyte distribution width Auto (Bld) [Entitic vol] 19.87 % 0.00-20.00 [facility] Neutrophils [#/volume] in Bl ood by Automated countOrdered By: Randell Ledbetter on 03-28-2024 Neutrophils (Bld) [#/Vol] 5.3 10*3/uL Normal 1.8-7.7 [facility] Comment on above: Performed By: #### E SR, CBC #### [address] Nucleated erythrocytes [Pres ence] in Blood by Automated countOrdered By: Randell Ledbetter on 03-28-2024 Nucleated RBC Auto Ql (Bld) 0.1 /100{WBC} 0-0.5 [facility] Platelet mean volume [Entiti c volume] in Blood by Automated countOrdered By: Randell Ledbetter on 03-28-2024 Platelet mean volume (Bld) [Entitic vol] 7.4 fL Normal 6.3-10.7 [facility] Comment on above: Performed By: #### E SR, CBC #### [place] [address] [place] Platelets [#/volume] in Bloo d by Automated countOrdered By: Randell Ledbetter on 03-28-2024 Platelets (Bld) [#/Vol] 327 10*3/uL Normal 150-450 [facility] Comment on above: Performed By: #### E SR, CBC #### [address] Automated basophil %Ordered By: Apurva Martinez on 03-24-2024 Basophils/100 WBC (Bld) 0.5 % Normal . [facility] [place] Comment on above: Performed By: #### E SR, CBC, CRP, BMP #### [facility] [address] Automated basophil countOrde red By: Apurva Martinez on 03-24-2024 Basophils (Bld) [#/Vol] 0.0 10*3/uL Normal 0.0-0.2 [facility] Comment on above: Performed By: #### E SR, CBC, CRP, BMP #### [address] Automated blood monocyte cou ntOrdered By: Apurva Martinez on 03-24-2024 Monocytes (Bld) [#/Vol] 0.6 10*3/uL Normal 0.0-0.8 [facility] Comment on above: Performed By: #### E SR, CBC, CRP, BMP #### [address] Automated eosinophil %Ordere d By: Apurva Martinez on 03-24-2024 Eosinophils/100 WBC (Bld) 1.4 % Normal . [facility] Comment on above: Performed By: #### E SR, CBC, CRP, BMP #### [address] Automated eosinophil countOr dered By: Apurva Martinez on 03-24-2024 Eosinophils (Bld) [#/Vol] 0.1 10*3/uL Normal 0.0-0.45 [facility] Comment on above: Performed By: #### E SR, CBC, CRP, BMP #### [address] Automated monocyte %Ordered By: Apurva Martinez on 03-24-2024 Monocytes/100 WBC (Bld) 6.5 % Normal . [facility] Comment on above: Performed By: #### E SR, CBC, CRP, BMP #### [address] Automated neutrophil %Ordere d By: Apurva Martinez on 03-24-2024 Neutrophils/100 WBC (Bld) 72.6 % Normal . [facility] Comment on above: Performed By: #### E SR, CBC, CRP, BMP #### [facility] [address] Basic Metabolic Panelon Creatinine Clr Calc Pharmacy 98.37 Normal [facility] Comment on above: Performed By: #### E SR, CBC, CRP, BMP #### [place] [address] [place] GFR/1.73 sq M.predicted MDRD (S/P/Bld) [Vol rate/Area] mL/min/{1.73_m2} Normal [facility] Comment on above: Performed By: #### E SR, CBC, CRP, BMP #### [address] C reactive protein [Mass/vol ume] in Serum or PlasmaOrdered By: Apurva Martinez on 03-24-2024 CRP [Mass/Vol] 2.8 mg/dL High 0.0-0.5 [facility] C-Reactive Proteinon 024 C-Reactive Protein 2.8 mg/dL High 0.0-0.5 [facility] Comment on above: Result Comment: PERF ORMED BY: [place] [id number] PATHOLOGIST BULL BUCKER NAFISA LO M.D. Performed By: #### E SR, CBC, CRP, BMP #### [address] Calcium [Mass/volume] in Ser um or PlasmaOrdered By: Apurva Martinez on 03-24-2024 Calcium [Mass/Vol] 8.6 mg/dL Normal 8.6-10.3 [facility] Comment on above: Performed By: #### E SR, CBC, CRP, BMP #### [place] [address] [place] Carbon dioxide, total [Moles /volume] in Serum or PlasmaOrdered By: Apurva Martinez on 03-24-2024 CO2 [Moles/Vol] 26.6 mmol/L Normal 21.0-31.0 [facility] Comment on above: Performed By: #### E SR, CBC, CRP, BMP #### [address] Chloride [Moles/volume] in S shruthi or PlasmaOrdered By: Apurva Martinez on 03-24-2024 Chloride [Moles/Vol] 107 mmol/L Normal 98-107 [facility] Comment on above: Performed By: #### E SR, CBC, CRP, BMP #### [facility] [address] [place] [address] Complete Blood Count Auto Di ffon 03-24-2024 Mean Corpuscular HGB Conc 33.7 g/dL Normal 32.0-35.0 [facility] Comment on above: Performed By: #### E SR, CBC, CRP, BMP #### [address] Monocytes/100 WBC (Bld) 17.82 % Normal 0.00-20.00 [facility] Comment on above: Performed By: #### E SR, CBC, CRP, BMP #### [address] NRBC% 0.1 /100{WBC} Normal 0-0.5 [facility] Comment on above: Performed By: #### E SR, CBC, CRP, BMP #### [address] Creatinine [Mass/volume] in Serum or PlasmaOrdered By: Apurva Martinez on 03-24-2024 Creatinine [Mass/Vol] 0.60 mg/dL Normal 0.60-1.20 [facility] Comment on above: Performed By: #### E SR, CBC, CRP, BMP #### [address] Erythrocyte Sedimentation Ra urmila 03-24-2024 ESR (Bld) [Velocity] 16 mm/h Normal 0-29 [facility] Comment on above: Result Comment: PERF ORMED BY: [place] [id number] PATHOLOGIST BULL BUCKER NAFISA LO M.D. Performed By: #### E SR, CBC, CRP, BMP #### [address] Erythrocyte distribution wid th [Ratio] by Automated countOrdered By: Apurva Martinez on 03-24-2024 Erythrocyte distribution width (RBC) [Ratio] 13.3 % Normal 11.9-15.3 [facility] Comment on above: Performed By: #### E SR, CBC, CRP, BMP #### [address] Erythrocyte sedimentation ra te by Photometric methodOrdered By: Apurva Martinez on 03-24-2024 ESR Photometric method (Bld) [Velocity] 16 mm/hr 0-29 [facility] Erythrocytes [#/volume] in B lood by Automated countOrdered By: Apurva Martinez on 03-24-2024 RBC (Bld) [#/Vol] 4.45 10*6/uL Normal 3.60-5.00 [facility] Comment on above: Performed By: #### E SR, CBC, CRP, BMP #### [address] Glucose [Mass/volume] in Ser um or PlasmaOrdered By: Apurva Martinez on 03-24-2024 Glucose [Mass/Vol] 110 mg/dL High 70-100 [facility] Comment on above: ADA recommended refe rence rangeRandom Glucose Reference Range is dependent on time and content of last meal. Glucose of more than 200 mg/dL in a nonstressed, ambulatory subject supports the diagnosis of Diabetes Mellitus. Result Comment: Curtis om Glucose Reference Range is dependent on time and content of last meal. Glucose of more than 200 mg/dL in a nonstressed, ambulatory subject supports the diagnosis of Diabetes Mellitus. ADA recommended reference range Performed By: #### E SR, CBC, CRP, BMP #### [address] Hematocrit [Volume Fraction] of Blood by Automated countOrdered By: Apurva Martinez on 03-24-2024 Hematocrit (Bld) [Volume fraction] 38.1 % Normal 34.0-46.4 [facility] Comment on above: Performed By: #### E SR, CBC, CRP, BMP #### [facility] [address] [place] [address] Hemoglobin [Mass/volume] in BloodOrdered By: Apurva Martinez on 03-24-2024 Hemoglobin (Bld) [Mass/Vol] 12.8 g/dL Normal 11.8-15.4 [facility] Comment on above: Performed By: #### E SR, CBC, CRP, BMP #### [facility] [address] [place] [address] Leukocytes [#/volume] correc amada for nucleated erythrocytes in Blood by Automated counOrdered By: Apurva Martinez on 03-24-2024 WBC corrected for nucl RBC Auto (Bld) [#/Vol] 9.8 10*3/uL 3.8-11.6 [facility] Leukocytes [#/volume] in Blo od by Automated countOrdered By: Apurva Martinez on 03-24-2024 WBC (Bld) [#/Vol] 9.8 10*3/uL Normal 3.8-11.6 [facility] Comment on above: Performed By: #### E SR, CBC, CRP, BMP #### [facility] [address] [place] [address] Lymphocytes [#/volume] in Bl ood by Automated countOrdered By: Apurva Martinez on 03-24-2024 Lymphocytes (Bld) [#/Vol] 1.9 10*3/uL Normal 1.00-4.8 [facility] Comment on above: Performed By: #### E SR, CBC, CRP, BMP #### [facility] [address] [place] [address] [place] Lymphocytes/100 leukocytes i n Blood by Automated countOrdered By: Apurva Martinez on 03-24-2024 Lymphocytes/100 WBC (Bld) 19.0 % Normal . [facility] Comment on above: Performed By: #### E SR, CBC, CRP, BMP #### [facility] [address] [place] [address] MCH [Entitic mass] by Automa amada countOrdered By: Apurva Martinez on 03-24-2024 MCH (RBC) [Entitic mass] 28.8 pg Normal 24.7-34.3 [facility] Comment on above: Performed By: #### E SR, CBC, CRP, BMP #### [facility] [address] [place] [address] MCHC Auto (RBC) [Mass/Vol]Or dered By: Apurva Martinez on 03-24-2024 MCHC (RBC) [Mass/Vol] 33.7 g/dL 32.0-35.0 [facility] MCV [Entitic volume] by Auto mated countOrdered By: Apurva Martinez on 03-24-2024 MCV (RBC) [Entitic vol] 85.6 fL Normal 80-100 [facility] Comment on above: Performed By: #### E SR, CBC, CRP, BMP #### [facility] [address] [place] [address] Monocyte distribution width [Entitic volume] in Blood by AutomatedOrdered By: Apurva Martinez on 03-24-2024 Monocyte distribution width Auto (Bld) [Entitic vol] 17.82 % 0.00-20.00 [facility] Neutrophils [#/volume] in Bl ood by Automated countOrdered By: Apurva Martinez on 03-24-2024 Neutrophils (Bld) [#/Vol] 7.1 10*3/uL Normal 1.8-7.7 [facility] Comment on above: Performed By: #### E SR, CBC, CRP, BMP #### [facility] [address] [place] [address] No Panel InformationOrdered By: Apurva Martinez on 03-24-2024 Estimated GFR (CKD-EPI) > 60.0 mL/Min [facility] Creatinine Clearance (Chem 98.37 [facility] Nucleated erythrocytes [Pres ence] in Blood by Automated countOrdered By: Apurva Martinez on 03-24-2024 Nucleated RBC Auto Ql (Bld) 0.1 /100{WBC} 0-0.5 [facility] Platelet mean volume [Entiti c volume] in Blood by Automated countOrdered By: Apurva Martinez on 03-24-2024 Platelet mean volume (Bld) [Entitic vol] 7.5 fL Normal 6.3-10.7 [facility] Comment on above: Performed By: #### E SR, CBC, CRP, BMP #### [facility] [address] [place] [address] [place] Platelets [#/volume] in Bloo d by Automated countOrdered By: Apurva Martinez on 03-24-2024 Platelets (Bld) [#/Vol] 313 10*3/uL Normal 150-450 [facility] Comment on above: Performed By: #### E SR, CBC, CRP, BMP #### [place] [address] [place] Potassium [Moles/volume] in Serum or PlasmaOrdered By: Apurva Martinez on 03-24-2024 Potassium [Moles/Vol] 3.8 mmol/L Normal 3.5-5.1 [facility] Comment on above: Performed By: #### E SR, CBC, CRP, BMP #### [facility] [address] [place] [address] Serum or plasma anion gap de terminationOrdered By: Apurva Martinez on 03-24-2024 Anion gap [Moles/Vol] 11.2 mmol/L Normal 6.0-15.[address] [facility] Comment on above: Performed By: #### E SR, CBC, CRP, BMP #### [place] [address] [place] Sodium [Moles/volume] in Ser um or PlasmaOrdered By: Apurva Martinez on 03-24-2024 Sodium [Moles/Vol] 141 mmol/L Normal 136-145 [facility] Comment on above: Performed By: #### E SR, CBC, CRP, BMP #### [place] [address] [place] Urea nitrogen [Mass/volume] in Serum or PlasmaOrdered By: Apurva Martinez on 03-24-2024 Urea nitrogen [Mass/Vol] 19 mg/dL Normal 7-25 [facility] Comment on above: Performed By: #### E SR, CBC, CRP, BMP #### [facility] [address] XR hand LT min 3V*on 024 XR hand LT min 3V* [facility] [address] [place] [address] [place] [address] XRay Report Signed Patient: Carla Irby MR#: [id number] 74 : 1960 Acct:[id number] Age/Sex: 64 / F ADM Date: 03/24/24 Loc: ER Room: Type: [facility] ER Attending Dr: Copies to: Apurva [...] Lupis Dukes M.D.03/24/2024 4:26 PM Dictation Location: [place] [address] Transcribed By: [facility] 03/24/24 1626 Dictated By: Lupis Dukes MD 03/24/241623 Signed By: 03/24/241625 Normal [facility] CT LOW DOSE LUNG SCREENINGon [...] aided detection for pulmonary nodules?was performed utilizing [employer] Monitoring software.? 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 LOCATION: [facility] BREAST COMPOSITION: Scattered areas fibroglandular density. FINDINGS: [...] English MD on 06/28/2022 at 07:45 Normal [facility] XR DEXA BONE DENSITYon 06-27 XR DEXA [...] by: RIDDHI VELASCO Date: 2022-06-27 16:24 Normal [facility] CT LUNG CANCER SCREENINGon 08-14-2021 CT LUNG [...] by: ED DIXON Date: 2022-06-14 16:11 Normal [facility] CBC AUTO DIFFon 06-01-2022 BASO # 0.1 103/ul Normal 0.0-0.1 [facility] Comment on above: Performed By: #### C BC #### [facility] [address] [place] [address] Dr. Jose Polanco Basophils/100 WBC (Bld) 0.7 % Normal 0.2-2.0 [facility] Comment on above: Performed By: #### C BC #### [facility] [address] [place] [address] Dr. Jose Polanco EO # 0.2 103/ul Normal 0.0-0.7 [facility] Comment on above: Performed By: #### C BC #### [facility] [address] [place] [address] Dr. Jose Polanco Eosinophils/100 WBC (Bld) 2.0 % Normal 0.9-7.0 [facility] Comment on above: Performed By: #### C BC #### [facility] [address] [place] [address] Dr. Jose Polanco Erythrocyte distribution width (RBC) [Ratio] 13.0 % Normal 11.0-15.0 [facility] Comment on above: Performed By: #### C BC #### [facility] [address] [place] [address] Dr. Jose Polanco Hematocrit (Bld) [Volume fraction] 44.3 % Normal 36.0-48.0 [facility] Comment on above: Performed By: #### C BC #### [facility] [address] [place] [address] Dr. Jose Polanco Hemoglobin (Bld) [Mass/Vol] 14.6 g/dL Normal 12.0-16.0 [facility] Comment on above: Performed By: #### C BC #### [facility] [address] [place] [address] Dr. Jose Polanco IG # 0.02 10e3/ul Normal 0.00-0.03 [facility] Comment on above: Performed By: #### C BC #### [facility] [address] [place] [address] Dr. Jose Polanco IG % 0.2 % Normal 0.0-0.5 [facility] Comment on above: Performed By: #### C BC #### [facility] [address] [place] [address] Dr. Jose Polanco LYMPH # 2.6 103/ul Normal 1.2-3.8 [facility] Comment on above: Performed By: #### C BC #### [facility] [address] [place] [address] Dr. Jose Polanco Lymphocytes/100 WBC (Bld) 27.8 % Normal 20.5-60.0 [facility] Comment on above: Performed By: #### C BC #### [facility] [address] [place] [address] Dr. Jose Polanco MANUAL DIFF REQ NO Normal [facility] Comment on above: Performed By: #### C BC #### [facility] [address] [place] [address] Dr. Jose Polanco MCH (RBC) [Entitic mass] 28.8 pg Normal 26.7-34.0 [facility] Comment on above: Performed By: #### C BC #### [facility] [address] [place] [address] [address] Jose Polanco MCHC (RBC) [Mass/Vol] 33.0 g/dL Normal 29.9-35.2 [facility] Comment on above: Performed By: #### C BC #### [facility] [address] [place] [address] [address] Jose Polanco MCV (RBC) [Entitic vol] 87.4 fL Normal 81.0-99.0 [facility] Comment on above: Performed By: #### C BC #### [facility] [address] [place] [address] [address] Jose Polanco MONO # 0.5 103/ul Normal 0.3-0.8 [facility] Comment on above: Performed By: #### C BC #### [facility] [address] [place] [address] [address] Jose Polanco Monocytes/100 WBC (Bld) 5.1 % Normal 1.7-12.0 [facility] Comment on above: Performed By: #### C BC #### [facility] [address] [place] [address] Dr. Jose Polanco NEUT # 6.0 103/ul Normal 1.4-6.5 [facility] Comment on above: Performed By: #### C BC #### [facility] [address] [place] [address] [address] Jose Ploanco Neutrophils/100 WBC (Bld) 64.2 % Normal 43.0-75.0 [facility] Comment on above: Performed By: #### C BC #### [facility] [address] [place] [address] [address] Jose Polanco Platelet mean volume (Bld) [Entitic vol] 9.1 fL Critically low 9.5-13.5 [facility] Comment on above: Performed By: #### C BC #### [facility] [address] [place] [address] [address] Jose Polanco PLT 278 103/ul Normal 150-450 [facility] Comment on above: Performed By: #### C BC #### [facility] [address] [place] [address] [address] Jose Polanco RBC 5.07 106/ul Normal 4.20-5.40 [facility] Comment on above: Performed By: #### C BC #### [facility] [address] [place] [address] [address] Jose Polanco WBC 9.4 103/ul Normal 4.0-11.0 [facility] Comment on above: Performed By: #### C BC #### [facility] [address] [place] [address] [address] Jose Polanco PROF 14(COMP METB)on 022 Albumin [Mass/Vol] 3.8 g/dL Normal 3.4-5.0 [facility] Comment on above: Performed By: #### C MP #### [facility] [address] [place] [address] Dr. Jose Polanco Albumin/Globulin [Mass ratio] 1.4 {ratio} Normal [facility] Comment on above: Performed By: #### C MP #### [facility] [address] [place] [address] Dr. Jose Polanco ALP [Catalytic activity/Vol] 94 U/L Normal 46-116 [facility] Comment on above: Performed By: #### C MP #### [facility] [address] [place] [address] Dr. Jose Polanco ALT [Catalytic activity/Vol] 24 U/L Normal 14-59 [facility] Comment on above: Performed By: #### C MP #### [facility] [address] [place] [address] Dr. Jose Polanco Anion gap [Moles/Vol] 9.5 mmol/L Normal [facility] Comment on above: Performed By: #### C MP #### [facility] [address] [place] [address] Dr. Jose Polanco AST [Catalytic activity/Vol] 11 U/L Critically low 15-37 [facility] Comment on above: Performed By: #### C MP #### [facility] [address] [place] [address] [address] Jose Polanco Bilirubin [Mass/Vol] 0.5 mg/dL Normal 0.2-1.0 [facility] Comment on above: Performed By: #### C MP #### [facility] [address] [place] [address] [address] Jose Polanco Calcium [Mass/Vol] 8.8 mg/dL Normal 8.5-10.1 [facility] Comment on above: Performed By: #### C MP #### [facility] [address] [place] [address] [address] Jose Polanco Chloride [Moles/Vol] 105 mmol/L Normal 98-107 [facility] Comment on above: Performed By: #### C MP #### [facility] [address] [place] [address] Dr. Jose Polanco CO2 [Moles/Vol] 31.8 mmol/L Normal 21.0-32.0 [facility] Comment on above: Performed By: #### C MP #### [facility] [address] [place] [address] Dr. Jose Polanco Creatinine [Mass/Vol] 0.60 mg/dL Normal 0.55-1.02 [facility] Comment on above: Performed By: #### C MP #### [facility] [address] [place] [address] Dr. Jose Polanco EGFR-AF NIGERIEN >60 Normal >=60 [facility] Comment on above: Performed By: #### C MP #### [facility] [address] [place] [address] Dr. Jose Polanco EGFR-NON AF NIGERIEN >60 Normal >=60 [facility] Comment on above: Performed By: #### C MP #### [facility] [address] [place] [address] Dr. Jose Polanco Globulin (S) [Mass/Vol] 2.8 g/dL Normal T [facility] Comment on above: Performed By: #### C MP #### [facility] [address] [place] [address] Dr. Jose Polanco Glucose [Mass/Vol] 94 mg/dL Normal 74-106 [facility] Comment on above: Performed By: #### C MP #### [facility] [address] [place] [address] [address] Jose Polanco Potassium [Moles/Vol] 4.3 mmol/L Normal 3.5-5.1 [facility] Comment on above: Performed By: #### C MP #### [facility] [address] [place] [address] [address] Jose Polanco Protein [Mass/Vol] 6.6 g/dL Normal 6.4-8.2 [facility] Comment on above: Performed By: #### C MP #### [facility] [address] [place] [address] [address] Jose Polanco Sodium [Moles/Vol] 142 mmol/L Normal 136-145 [facility] Comment on above: Performed By: #### C MP #### [facility] [address] [place] [address] [address] Jose Polanco Urea nitrogen [Mass/Vol] 12.0 mg/dL Normal 7.0-18.0 [facility] Comment on above: Performed By: #### C MP #### [facility] [address] [place] [address] [address] Jose Polanco Urea nitrogen/Creatinine [Mass ratio] 20.0 mg/mg Normal [facility] Comment on above: Performed By: #### C MP #### [facility] [address] [place] [address] [address] Jose Polanco Vital Signs Date Time Vital Sign Value Performing Clinician Facility 08-19-2024 16:18-0500 Body height 167.6 cm Yola VEGA Work Phone: [facility] 08-19-2024 16:18-0500 Body mass index (BMI) [Ratio] 27.81 kg/m2 Yola VEGA Work Phone: [facility] 08-19-2024 16:18-0500 Body temperature 98.1 [degF] Yola VGEA Work Phone: [facility] 08-19-2024 16:18-0500 Body weight 78.11 kg Yola Herr SUPERVISOR LANDSCAPE-AUTOMATION CONTROL INTEGRATOR Work Phone: [facility] 08-19-2024 16:18-0500 Diastolic blood pressure 60 mm[Hg] Yola Herr SUPERVISOR LANDSCAPE-AUTOMATION CONTROL INTEGRATOR Work Phone: [facility] 08-19-2024 16:18-0500 Heart rate 88 /min Yola Herr SUPERVISOR LANDSCAPE-AUTOMATION CONTROL INTEGRATOR Work Phone: [facility] 08-19-2024 16:18-0500 Respiratory rate 20 /min Yola Herr SUPERVISOR LANDSCAPE-AUTOMATION CONTROL INTEGRATOR Work Phone: [facility] 08-19-2024 16:18-0500 SaO2% (BldA) [Mass fraction] 97 % Yola Herr APRN-AUTOMATION CONTROL INTEGRATOR Work Phone: [facility] 08-19-2024 16:18-0500 Systolic blood pressure 126 mm[Hg] Yola Herr SUPERVISOR LANDSCAPE-AUTOMATION CONTROL INTEGRATOR Work Phone: [facility] 07-19-2024 14:16-0500 Body height 167.6 cm Irene RAHMAN Work Phone: [facility] 07-19-2024 14:16-0500 Body mass index (BMI) [Ratio] 27.44 kg/m2 Irene RAHMAN Work Phone: [facility] 07-19-2024 14:16-0500 Body weight 77.11 kg Irene RAHMAN Work Phone: [facility] 03-28-2024 15:43-0400 Body temperature 98.3 [degF] NIGHT AUDITOR-C Yola Herr Work Phone: [facility] 03-28-2024 15:43-0400 Diastolic blood pressure 80 mm[Hg] NIGHT AUDITOR-C Yola Herr Work Phone: [facility] 03-28-2024 15:43-0400 Heart rate 76 /min NIGHT AUDITOR-C Yola Herr Work Phone: [facility] 03-28-2024 15:43-0400 Respiratory rate 16 /min NIGHT AUDITOR-C Yola Herr Work Phone: [facility] 03-28-2024 15:43-0400 SaO2% (BldA) [Mass fraction] 95 % NIGHT AUDITOR-C Yola Herr Work Phone: [facility] 03-28-2024 15:43-0400 Systolic blood pressure 144 mm[Hg] NIGHT AUDITOR-C Yola Herr Work Phone: [facility] 03-28-2024 13:31-0400 Body height 166.37 cm NIGHT AUDITOR-C Yola Herr Work Phone: [facility] 03-28-2024 13:31-0400 Body weight 75.75 kg NIGHT AUDITOR-C Yola Herr Work Phone: [facility] 03-24-2024 17:25-0400 Body temperature 97.9 [degF] NIGHT AUDITOR-C Yola Herr Work Phone: [facility] 03-24-2024 17:25-0400 Diastolic blood pressure 68 mm[Hg] NIGHT AUDITOR-C Yola Herr Work Phone: [facility] 03-24-2024 17:25-0400 Heart rate 69 /min NIGHT AUDITOR-C Yola Herr Work Phone: [facility] 03-24-2024 17:25-0400 Respiratory rate 16 /min NIGHT AUDITOR-C Yola Herr Work Phone: [facility] 03-24-2024 17:25-0400 SaO2% (BldA) [Mass fraction] 97 % NIGHT AUDITOR-C Yola Herr Work Phone: [facility] 03-24-2024 17:25-0400 Systolic blood pressure 137 mm[Hg] NIGHT AUDITOR-C Yola Herr Work Phone: [facility] 03-24-2024 15:17-0400 Body height 167.64 cm NIGHT AUDITORMartina Yola Herr Work Phone: [facility] 03-24-2024 15:17-0400 Body weight 75.5 kg NIGHT AUDITOR-C Yola Herr Work Phone: [facility] 03-24-2024 13:49-0400 Body height 167.64 cm [facility] 03-24-2024 13:49-0400 Body mass index (BMI) [Ratio] 26.3 kg/m2 [facility] 03-24-2024 13:49-0400 Body temperature 98.1 [degF] [facility] 03-24-2024 13:49-0400 Body weight 73.93 kg [facility] 03-24-2024 13:49-0400 Diastolic blood pressure 82 mm[Hg] [facility] 03-24-2024 13:49-0400 Heart rate 90 /min [facility] 03-24-2024 13:49-0400 Respiratory rate 18 /min [facility] 03-24-2024 13:49-0400 SaO2% (BldA) [Mass fraction] 96 % [facility] 03-24-2024 13:49-0400 Systolic blood pressure 146 mm[Hg] [facility] Encounters Encounter Date Encounter Type Care Provider Facility Start: 08-19-2024 End: 08-19-2024 Office outpatient visit 15 minutes Yola Herr SUPERVISOR LANDSCAPE-AUTOMATION CONTROL INTEGRATOR Work Phone: [facility] - [facility] Comment on above: Community acquired p neumonia, unspecified laterality (Primary Dx); Insomnia, unspecified type Start: 08-19-2024 End: 08-19-2024 ambulatory YOLA HERR [facility] Start: 07-22-2024 End: 07-22-2024 Telephone encounter Irene RAHMAN Work Phone: [facility] Start: 07-19-2024 End: 07-19-2024 Office outpatient visit 25 minutes Irene RAHMAN Work Phone: [facility] Comment on above: Acute pain of left k nee (Primary Dx); Effusion of left knee; Polyarthralgia; Left wrist effusion Start: 07-19-2024 End: 07-19-2024 ambulatory IRENE FENG Not Available Start: 07-19-2024 End: 07-19-2024 Bamboo flowsheet Irene RAHMAN Work Phone: [facility] Start: 07-19-2024 End: 07-19-2024 Bamboo flowsheet Irene RAHMAN Work Phone: [facility] Start: 07-05-2024 End: 07-05-2024 ambulatory YOLA HERR [facility] Start: 06-11-2024 End: 06-14-2024 Refill Yola Herr SUPERVISOR LANDSCAPE-AUTOMATION CONTROL INTEGRATOR Work Phone: [facility] Comment on above: Anxiety and depressi on; Benign essential HTN Start: 06-10-2024 End: 06-10-2024 Office outpatient visit 15 minutes Isabella A Felter SUPERVISOR LANDSCAPE-AUTOMATION CONTROL INTEGRATOR Work Phone: [facility] Comment on above: 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[facility]) Start: 06-10-2024 End: 06-10-2024 ambulatory ISABELLA A FELTER Not Available Start: 06-10-2024 End: 06-10-2024 Bamboo flowsheet Isabella A Felter SUPERVISOR LANDSCAPE-AUTOMATION CONTROL INTEGRATOR Work Phone: [facility] Start: 06-10-2024 End: 06-10-2024 Bamboo flowsheet Isabella A Felter SUPERVISOR LANDSCAPE-AUTOMATION CONTROL INTEGRATOR Work Phone: [facility] Start: 05-24-2024 End: 05-24-2024 Bamboo flowsheet Carmen Yap NIGHT AUDITOR Work Phone: [facility] Start: 05-24-2024 End: 05-24-2024 Bamboo flowsheet Carmen Jacinto Fracisco NIGHT AUDITOR Work Phone: [facility] Start: 05-24-2024 End: 05-24-2024 Office outpatient visit 15 minutes Carmen Jacinto Fracisco NIGHT AUDITOR Work Phone: [facility] Comment on above: Left wrist pain (Jennifer israel Dx); Swelling of left wrist; Arthritis of carpometacarpal (CMC) joint of left thumb; Arthritis of left wrist; Ganglion of left wrist Start: 05-24-2024 End: 05-24-2024 ambulatory CARMEN Jacinto LEEARNOLD Not Available Start: 05-03-2024 End: 05-03-2024 Patient encounter procedure Isabella Valenzuela Felter SUPERVISOR LANDSCAPE-AUTOMATION CONTROL INTEGRATOR Work Phone: [facility] Comment on above: Rash and other nonsp ecific skin eruption Start: 05-03-2024 End: 05-03-2024 ambulatory ISABELLA Valenzuela FELTER Not Available Start: 05-03-2024 End: 05-03-2024 Bamboo flowsheet Isabella Valenzuela Felter SUPERVISOR LANDSCAPE-AUTOMATION CONTROL INTEGRATOR Work Phone: [facility] Start: 05-03-2024 End: 05-03-2024 Bamboo flowsheet Isabella Valenzuela Felter SUPERVISOR LANDSCAPE-AUTOMATION CONTROL INTEGRATOR Work Phone: [facility] Start: 04-27-2024 End: 05-24-2024 Telephone encounter Karena Levin OT Work Phone: [facility] Comment on above: OT Initial Eval (Wyatt led to inform off referral per Apling a $25.00 copay at dos is required. She said due to time availability she will need to contact me back re: OT treatment hours are her work hours; she will call back.) Start: 04-26-2024 End: 04-26-2024 Bamboo flowsheet Carmen Jacinto Fracisco NIGHT AUDITOR Work Phone: [facility] Start: 04-26-2024 End: 04-26-2024 Bamboo flowsheet Carmen Jacinto Leeing NIGHT AUDITOR Work Phone: [facility] Start: 04-26-2024 End: 04-26-2024 Office outpatient visit 15 minutes Carmen B Apling NIGHT AUDITOR Work Phone: [facility] Comment on above: Left wrist pain (Jennifer israel Dx); Swelling of left wrist; Arthritis of carpometacarpal (CMC) joint of left thumb; Arthritis of left wrist Start: 04-26-2024 End: 04-26-2024 ambulatory CARMEN B APLING Not Available Start: 04-12-2024 End: 04-12-2024 Office outpatient visit 15 minutes Isabella Lozoya SUPERVISOR LANDSCAPE-AUTOMATION CONTROL INTEGRATOR Work Phone: [facility] Comment on above: Allergic contact jany matitis, unspecified trigger (Primary Dx) Start: 04-12-2024 End: 04-12-2024 ambulatory ISABELLA Valenzuela FELTER Not Available Start: 04-12-2024 End: 04-12-2024 Bamboo Cook Angelsheet Carmen B Apling NIGHT AUDITOR Work Phone: [facility] Start: 04-12-2024 End: 04-12-2024 Bamboo Cook Angelsheet Carmen B Apling NIGHT AUDITOR Work Phone: [facility] Start: 04-12-2024 End: 04-12-2024 Office outpatient visit 25 minutes Carmen B Apling NIGHT AUDITOR Work Phone: [facility] Comment on above: Left wrist pain (Jennifer israel Dx); Swelling of left wrist; Arthritis of left wrist; Arthritis of carpometacarpal (CMC) joint of left thumb Start: 04-12-2024 End: 04-12-2024 ambulatory CARMEN B APLING Not Available Start: 03-29-2024 End: 03-29-2024 Bamboo Cook Angelsheet Carmen B Apling NIGHT AUDITOR Work Phone: [facility] Start: 03-29-2024 End: 03-29-2024 Bamboo flowsheet Carmen B Apling NIGHT AUDITOR Work Phone: [facility] Start: 03-29-2024 End: 03-29-2024 Office outpatient new 30 minutes Carmen B Apling NIGHT AUDITOR Work Phone: [facility] Comment on above: Left wrist pain (Jennifer israel Dx); Swelling of left wrist; Arthritis of left wrist Start: 03-29-2024 End: 03-29-2024 ambulatory CARMEN Orville APLING Not Available Start: 03-28-2024 End: 03-28-2024 Emergency department patient visit NIGHT AUDITOR-Palak Herr Work Phone: [facility] Work Phone: Start: 03-24-2024 End: 03-24-2024 Emergency department patient visit NIGHT AUDITOR-Palak Herr Work Phone: [facility] Work Phone: Start: 03-24-2024 End: 03-24-2024 ambulatory [facility] Work Phone: Start: 03-24-2024 End: 03-24-2024 Patient encounter procedure [facility] [place] Work Phone: Start: 01-27-2024 ambulatory [facility] Start: 01-23-2024 End: 01-23-2024 [facility] Start: 01-23-2024 End: 01-24-2024 [facility] Start: 12-02-2023 End: 12-02-2023 ambulatory [facility] Start: 11-17-2023 End: 11-17-2023 Refill Yola Herr SUPERVISOR LANDSCAPE-AUTOMATION CONTROL INTEGRATOR Work Phone: [facility] Comment on above: Anxiety and depressi on; Benign essential HTN Start: 10-30-2023 End: 11-04-2023 Telephone encounter Yola Herr SUPERVISOR LANDSCAPE-AUTOMATION CONTROL INTEGRATOR Work Phone: [facility] Start: 06-27-2022 End: 06-28-2022 ambulatory YOLA HERR Facility:H1 Start: 06-14-2022 End: 06-15-2022 ambulatory YOLA HERR Facility:[facility]1 Start: 06-04-2022 Encounter for genera l adult medical examination without abnormal findings YOLA HERR [facility] Start: 06-01-2022 End: 06-02-2022 ambulatory YOLA HERR Facility:[facility] Start: 06-01-2022 End: 06-02-2022 Encounter for general adult medical examination without abnormal findings YOLA HERR Facility:H1 Start: 12-10-2021 End: 12-26-2021 ambulatory YOLA HERR Facility:[facility]1 Start: 04-05-2020 Patient encounter procedure Yola Herr SUPERVISOR LANDSCAPE-AUTOMATION CONTROL INTEGRATOR Work Phone: [employer] Procedures Date Procedure Procedure Detail Performing Clinician Start: 08-19-2024 Adult depression scr eening assessment Yola Herr SUPERVISOR LANDSCAPE-AUTOMATION CONTROL INTEGRATOR Work Phone: Start: 07-19-2024 Radiologic examinati on knee 1/2 views Irene RAHMAN Work Phone: Start: 07-19-2024 Arthrocentesis aspir &/inj major jt/bursa w/o us Irene RAHMAN Work Phone: Start: 05-03-2024 SKIN / NAIL BIOPSY Freida Lozoya SUPERVISOR LANDSCAPE-AUTOMATION CONTROL INTEGRATOR Work Phone: Start: 04-12-2024 Arthrocentesis aspir &/inj small jt/bursa w/o us Carmen Yap NIGHT AUDITOR Work Phone: Start: 04-12-2024 Radex wrist complete minimum 3 views Carmen Yap NIGHT AUDITOR Work Phone: Start: 03-24-2024 Plain X-ray of left hand NIGHT AUDITOR-C Yola Bernalillo Work Phone: Start: 01-23-2024 Mammography Isabella Afsaneh miller SUPERVISOR LANDSCAPE-AUTOMATION CONTROL INTEGRATOR Work Phone: Start: 12-02-2023 Follow-up visit Follow-up YOLA HERR Start: 12-02-2023 Adult depression scr eening assessment Yola Herr SUPERVISOR LANDSCAPE-[facility] Work Phone: Start: 06-03-2023 Adult depression scr eening assessment Yola Herr SUPERVISOR LANDSCAPE-AUTOMATION CONTROL INTEGRATOR Work Phone: Start: 07-03-2022 Mammography Yola finch SUPERVISOR LANDSCAPE-AUTOMATION CONTROL INTEGRATOR Work Phone: Start: 08-29-2014 Colonoscopy Yola finch SUPERVISOR LANDSCAPE-AUTOMATION CONTROL INTEGRATOR Work Phone: Plan of Treatment Date Care Activity Detail Author Start: 08-19-2025 Adult BMI Screening Adult BMI Screening [facility] Start: 08-19-2025 Depression Screening Depression Screening [facility] Start: 08-19-2025 Tobacco Screening Tobacco Screening [facility] Start: 01-22-2025 Adult BMI Screening Adult BMI Screening [facility] Start: 01-22-2025 Screening for malignant neoplasm of breast Mammogram [facility] Start: 01-22-2025 Tobacco Screening Tobacco Screening [facility] Start: 12-01-2024 Adult BMI Follow Up Plan Adult BMI Follow Up Plan [facility] Start: 12-01-2024 Depression Screening Depression Screening [facility] Start: 10-27-2024 End: 10-27-2024 Patient encounter procedure 10/27/2024 3:40 PM EDT [facility] [address] [place] [address] Yola Herr [facility] [address] [place] [address] [facility] Start: 08-29-2024 Screening for malignant neoplasm of colon Colonoscopy [facility] Start: 07-26-2024 End: 07-26-2024 Patient encounter procedure 07/26/2024 4:00 PM EST [facility] [address] [place] [address] Yola Herr [facility] [address] [place] [address] [facility] Start: 07-19-2024 End: 07-19-2024 Patient encounter procedure 07/19/2024 2:15 PM EST Office Visit [facility] [address] [place] [address] Irene Feng PA [address] [place] [address] Acute pain of left knee (Primary Dx) [facility] Comment on above: Acute pain of left knee (Primary Dx) Start: 07-19-2024 End: 07-19-2025 Aerobic culture Aerobic culture Microbiology Routine Acute pain of left knee Effusion of left knee Expected: 07/19/2024 (Approximate), Expires: 07/19/2025 [facility] Comment on above: Expected: 07/19/2024 (Approximate), Expi res: 07/19/2025 Start: 07-19-2024 End: 07-19-2025 AFB culture AFB culture Microbiology Routine Acute pain of left knee Effusion of left knee Expected: 07/19/2024 (Approximate), Expires: 07/19/2025 [facility] Comment on above: Expected: 07/19/2024 (Approximate), Expi res: 07/19/2025 Start: 07-19-2024 End: 07-19-2025 Anaerobic culture Anaerobic culture Microbiology Routine Acute pain of left knee Effusion of left knee Expected: 07/19/2024 (Approximate), Expires: 07/19/2025 [facility] Comment on above: Expected: 07/19/2024 (Approximate), Expi res: 07/19/2025 Start: 07-19-2024 End: 07-19-2025 C reactive protein [Mass/volume] in Serum or Plasma C-reactive protein Lab Routine Polyarthralgia Expected: 07/19/2024 (Approximate), Expires: 07/19/2025 [facility] Comment on above: Expected: 07/19/2024 (Approximate), Expi res: 07/19/2025 Start: 07-19-2024 End: 07-19-2025 CBC W Auto Differential panel - Blood CBC and differential Lab Routine Polyarthralgia Expected: 07/19/2024 (Approximate), Expires: 07/19/2025 [facility] Work Phone: Comment on above: Expected: 07/19/2024 (Approximate), Expi res: 07/19/2025 Start: 07-19-2024 End: 07-19-2025 Erythrocyte sedimentation rate Sedimentation rate, automated Lab Routine Polyarthralgia Expected: 07/19/2024 (Approximate), Expires: 07/19/2025 [facility] Comment on above: Expected: 07/19/2024 (Approximate), Expi res: 07/19/2025 Start: 07-19-2024 End: 07-19-2025 Glucose, body fluid Glucose, body fluid Lab Routine Acute pain of left knee Effusion of left knee Expected: 07/19/2024 (Approximate), Expires: 07/19/2025 [facility] Comment on above: Expected: 07/19/2024 (Approximate), Expi res: 07/19/2025 Start: 07-19-2024 End: 07-19-2025 HLA-B27 antigen HLA-B27 antigen Lab Routine Polyarthralgia Expected: 07/19/2024 (Approximate), Expires: 07/19/2025 [facility] Comment on above: Expected: 07/19/2024 (Approximate), Expi res: 07/19/2025 Start: 07-19-2024 End: 07-19-2025 Lupus anticoagulant Lupus anticoagulant Lab Routine Polyarthralgia Expected: 07/19/2024 (Approximate), Expires: 07/19/2025 [facility] Comment on above: Expected: 07/19/2024 (Approximate), Expi res: 07/19/2025 Start: 07-19-2024 End: 07-19-2025 Lyme disease, western blot Lyme disease, western blot Lab Routine Polyarthralgia Expected: 07/19/2024 (Approximate), Expires: 07/19/2025 [facility] Comment on above: Expected: 07/19/2024 (Approximate), Expi res: 07/19/2025 Start: 07-19-2024 End: 07-19-2025 Microscopic observation [Identifier] in Unspecified specimen by Gram stain Gram stain Microbiology Routine Acute pain of left knee Effusion of left knee Expected: 07/19/2024 (Approximate), Expires: 07/19/2025 [facility] Comment on above: Expected: 07/19/2024 (Approximate), Expi res: 07/19/2025 Start: 07-19-2024 End: 07-19-2025 Nuclear Ab [Titer] in Serum by Immunofluorescence LUTHER Lab Routine Polyarthralgia Expected: 07/19/2024 (Approximate), Expires: 07/19/2025 [facility] Comment on above: Expected: 07/19/2024 (Approximate), Expi res: 07/19/2025 Start: 07-19-2024 End: 07-19-2025 Protein, body fluid Protein, body fluid Lab Routine Acute pain of left knee Effusion of left knee Expected: 07/19/2024 (Approximate), Expires: 07/19/2025 [facility] Comment on above: Expected: 07/19/2024 (Approximate), Expi res: 07/19/2025 Start: 07-19-2024 End: 07-19-2025 Rheumatoid factor [Units/volume] in Serum or Plasma Rheumatoid factor Lab Routine Polyarthralgia Expected: 07/19/2024 (Approximate), Expires: 07/19/2025 [facility] Comment on above: Expected: 07/19/2024 (Approximate), Expi res: 07/19/2025 Start: 07-19-2024 End: 07-19-2025 Synovial fluid, cell count Synovial fluid, cell count Lab Routine Acute pain of left knee Effusion of left knee Expected: 07/19/2024 (Approximate), Expires: 07/19/2025 [facility] Comment on above: Expected: 07/19/2024 (Approximate), Expi res: 07/19/2025 Start: 07-19-2024 End: 07-19-2025 Synovial fluid, crystal Synovial fluid, crystal Lab Routine Acute pain of left knee Effusion of left knee Expected: 07/19/2024 (Approximate), Expires: 07/19/2025 [facility] Comment on above: Expected: 07/19/2024 (Approximate), Expi res: 07/19/2025 Start: 07-19-2024 End: 07-19-2025 Urate [Mass/volume] in Serum or Plasma Uric acid Lab Routine Polyarthralgia Expected: 07/19/2024 (Approximate), Expires: 07/19/2025 [facility] Comment on above: Expected: 07/19/2024 (Approximate), Expi res: 07/19/2025 Start: 07-05-2024 End: 07-05-2024 Patient encounter procedure 07/05/2024 3:45 PM EST Appointment [facility] - [facility] [address] [place] [address] [facility] Start: 06-10-2024 End: 06-10-2024 Patient [facility] Comment on above: Arrived Start: 06-07-2024 End: 06-07-2024 Patient encounter procedure 06/07/2024 12:00 PM EST Office Visit [facility] [address] [place] [address] Carmen Yap, NIGHT AUDITOR [address] [place] [address] [facility] Start: 06-03-2024 Adult BMI Follow Up Plan Adult BMI Follow Up Plan [facility] Start: 06-03-2024 Adult BMI Screening Adult BMI Screening [facility] Start: 06-03-2024 Depression Screening Depression Screening [facility] Start: 06-03-2024 Tobacco Screening Tobacco Screening [facility] Start: 05-24-2024 End: 05-24-2024 Patient encounter procedure 05/24/2024 11:30 AM EST Office Visit [facility] [address] [place] [address] Carmen Yap, NIGHT AUDITOR [address] [place] [address] Left wrist pain (Primary Dx); Swelling of [...] procedure 03/29/2024 1:30 PM EDT Office Visit [facility] [address] [facility] [address] [place] [address] Carmen Yap NP [address] [facility] [address] [place] [address] Left wrist pain (Primary Dx) [facility] Comment on above: Left wrist pain (Primary Dx) Start: 03-21-2024 Influenza vaccination [facility] Start: 12-02-2023 End: 12-02-2023 Patient encounter procedure 12/02/2023 3:20 PM EDT [facility] [address] [place] [address] Yola Herr, SUPERVISOR LANDSCAPE-AUTOMATION CONTROL INTEGRATOR [address] [place] [address] [facility] Start: 07-03-2023 Screening for malignant neoplasm of breast Mammogram [facility] Start: 2010 Administration of varicella zoster vaccine Zoster (Shingles) Vaccine (1 of 2) [facility] Start: 1990 Screening for malignant neoplasm of cervix [facility] Start: 1981 Screening for malignant neoplasm of cervix Pap Smear [facility] Start: 1979 DTaP,Tdap and Td Vaccines (1 - Tdap) DTaP,Tdap and Td Vaccines (1 - Tdap) [facility] Start: 1960 Screening for malignant neoplasm of colon [facility] Start: 1960 Tobacco Counseling Tobacco Counseling [facility] Dermatopathology exam Dermatopat hology exam Pathology and Cytology Timed Rash and other nonspecific skin eruption Release Upon Ordering for 1 Occurrences starting 05/03/2024 [facility] Work Phone: Comment on above: Release Upon Ordering for 1 Occurrences starting 05/03/2024 Patient Education [facility] Work Phone: Patient referral [facility] Work Phone: Immunizations Immunization Date Immunization Notes Care Provider Danni [facility] 06-03-2023 influenza, injectabl e, quadrivalent, preservative free Yola Herr SUPERVISOR LANDSCAPE-AUTOMATION CONTROL INTEGRATOR Work Phone: [facility] 06-03-2023 influenza virus vaccine, unspecified formulation Isabella Devora SUPERVISOR LANDSCAPE-AUTOMATION CONTROL INTEGRATOR Work Phone: [facility] 05-21-2022 influenza, injectabl e, quadrivalent, preservative free Yola Herr SUPERVISOR LANDSCAPE-AUTOMATION CONTROL INTEGRATOR Work Phone: [facility] 05-01-2021 Influenza, injectabl e, Madin Vicky Canine Kidney, preservative free, quadrivalent Yola Herr SUPERVISOR LANDSCAPE-AUTOMATION CONTROL INTEGRATOR Work Phone: [facility] 04-20-2020 influenza, injectabl e, quadrivalent, preservative free Yola Herr SUPERVISOR LANDSCAPE-AUTOMATION CONTROL INTEGRATOR Work Phone: [facility] 05-15-2019 influenza, injectabl e, quadrivalent, preservative free Yola Herr SUPERVISOR LANDSCAPE-AUTOMATION CONTROL INTEGRATOR Work Phone: [facility] 04-28-2018 influenza virus vaccine, unspecified formulation Yola Herr SUPERVISOR LANDSCAPE-AUTOMATION CONTROL INTEGRATOR Work Phone: [facility] 04-28-2018 influenza, injectabl e, quadrivalent, preservative free Yola Herr SUPERVISOR LANDSCAPE-AUTOMATION CONTROL INTEGRATOR Work Phone: [facility] 04-22-2016 influenza, injectabl e, quadrivalent, preservative free Yola Herr SUPERVISOR LANDSCAPE-AUTOMATION CONTROL INTEGRATOR Work Phone: [facility] 06-28-2009 novel [id number], preservative-free, injectable Yola Herr SUPERVISOR LANDSCAPE-AUTOMATION CONTROL INTEGRATOR Work Phone: [facility] Payers Date Payer Category Payer Self-pay 2023 [facility] [id number] 2023 [facility] Managed Care - Other [facility] [id number] 2023 Unknown [id number] 2020 Unknown [id number] 2019 Unknown [id number] 1960 Unknown [id number] 2.16.840.1.623728.3.57 9.2.593 1960 Unknown [id number] 2.16.840.1.531207.3.57 9.2.593 1960 Unknown [id number] 2.16.840.1.234486.3.57 9.2.593 1960 Unknown [id number] 2.16.840.1.259072.3.57 9.2.593 1960 Unknown [id number] 2.16.840.1.079040.3.57 9.2.1286 1960 Unknown [id number] 2.16.840.1.939793.3.57 9.2.1286 1960 Unknown [id number] 2.16.840.1.689605.3.57 9.2.1286 1960 Unknown [id number] 2.16.840.1.579632.3.57 9.2.1286 1960 Unknown [id number] 2.16.840.1.161020.3.57 9.2.1259 1960 Unknown [id number] 2.16.840.1.780895.3.57 9.2.1259 1960 Unknown [id number] 2.16.840.1.910146.3.57 9.2.1259 1960 Unknown [id number] 2.16.840.1.895812.3.57 9.2.1259 1960 Unknown [id number] 2.16.840.1.433890.3.57 9.2.1259 1960 Unknown [id number] 2.16.840.1.773691.3.57 9.2.1259 1960 Unknown [id number] 2.16.840.1.559067.3.57 9.2.1259 1960 Unknown [id number] 2.16.840.1.060622.3.57 9.2.1259 1960 Unknown [id number] 2.16.840.1.883664.3.57 9.2.1259 1960 Unknown [id number] 2.16.840.1.536051.3.57 9.2.1259 1960 Unknown [id number] 2.16.840.1.438675.3.57 9.2.1286 1960 Unknown [id number] 2.16.840.1.860270.3.57 9.2.1286 1960 Unknown [id number] 2.16.840.1.444326.3.57 9.2.1286 1960 Unknown [id number] 2.16.840.1.608821.3.57 9.2.1286 1959 Unknown [id number] Unknown [id number] 2.16.840.1.815904.3.57 9.2.531 Unknown [id number] 2.16.840.1.884977.3.57 9.2.531 Social History Date Type Detail Facility Start: 03-24-2024 Tobacco smoking stat [facility] Current Heavy tobacco smoker [facility] Start: 1960 Sex Assigned At Female F [facility] Start: 03-24-2024 End: 03-28-2024 Tobacco smoking status WAIS Smoker (finding) [facility] Start: 12-03-2022 End: 03-29-2024 Tobacco smoking status WAIS Smokes tobacco daily [facility] Start: 07-21-1990 History of tobacco use Cigarette Smo ker [facility] Start: 12-03-2022 End: 03-29-2024 Tobacco use and exposure Smokeless tobacco non-user [facility] Start: 04-12-2024 End: 07-19-2024 Alcoholic beverage intake Ex-drinker (finding) [facility] Start: 08-10-2020 End: 04-12-2024 History of Social function [facility] Start: 08-10-2020 End: 04-12-2024 Tobacco use panel [facility] Start: 1960 Sex assigned at Not on file N [facility] Start: 06-03-2023 End: 01-23-2024 Alcoholic beverage intake Current non-drinker of alcohol (finding) [facility] Adolescent depressio n screening assessment 0 [facility] Start: 02-23-2015 Sex Female (finding) [facility] Tobacco smoking stat [facility] Tobacco smoking consumption unknown [facility] Clinical Notes 10-30-2023 to 08-19-2024 Yola Herr APRN-[facility] - 08/19/2024 4:20 PM ESTTelephone Encounter - LACEY Jimenez - 07/22/2024 12:41 PM ESTTelephone Encounter - LACEY Jimenez - 07/22/2024 12:41 PM EST Note Date & Type Note Facility 08-19-2024 History of Present illness Narrative Images from the original note were not included. [address] [facility] [address] SUBJECTIVE: Patient ID: Carla Irby is a 64 y.o. female. Chief Complaint Patient presents with Cough Sore chest, Pneumonia Patient presents following ER visit at [facility] on 08/12/24. She was diagnosed with pneumonia. Prescribed Zpak and Prednisone. Today, she states she felt better while she was taking the Zpak, but symptoms are starting to return. She is experiencing cough, shortness of breath with exertion, fatigue, and right upper chest wall discomfort. Additional concern is insomnia. Has been dealing with difficulty sleeping since she was diagnosed with psoriatic arthritis 3 months ago. Pneumonia She complains of chest tightness, frequent throat clearing and shortness of breath. The current episode started 1 to 4 weeks ago. The problem occurs daily. The problem has been waxing and waning. Associated symptoms include appetite change, malaise/fatigue, myalgias and postnasal drip. Pertinent negatives include no chest pain or fever. Her symptoms are aggravated by strenuous activity. Her symptoms are alleviated by rest. She reports moderate improvement on treatment. The following portions of the patient's history were reviewed and updated as appropriate: allergies, current medications, past family history, past medical history, past social history, past surgical history and problem list. Past Surgical History: Procedure Laterality Date BREAST BIOPSY 01/02/2015 benign cyst BREAST CYST ASPIRATION Left 01/02/2015 cyst benign HYSTERECTOMY 2000 partial WRIST SURGERY Left 2011 Past Medical History: Diagnosis Date Anxiety Depression Hypertension Pneumonia 07/2024 Immunization History Administered Date(s) Administered H1N1 Inj Preservative Free 06/28/2009 Influenza, Injectable, Mdck, Preservative Free, Quad 05/01/2021 Influenza, Injectable, quadrivalent (PF) 04/22/2016, 04/28/2018, 05/15/2019, 04/20/2020, 05/21/2022, 06/03/2023 Influenza, Unspecified 04/28/2018 REVIEW OF SYSTEMS: Review of Systems Constitutional: Positive for appetite change, fatigue and malaise/fatigue. Negative for chills and fever. HENT: Positive for postnasal drip. Eyes: Negative for visual disturbance. Respiratory: Positive for shortness of breath. Negative for chest tightness. Cardiovascular: Negative for chest pain and palpitations. Gastrointestinal: Negative. Endocrine: Negative. Genitourinary: Negative for menstrual problem and pelvic pain. Musculoskeletal: Positive for myalgias. Skin: Negative. Allergic/Immunologic: Negative. Neurological: Negative for syncope and facial asymmetry. Hematological: Does not bruise/bleed easily. Psychiatric/Behavioral: Negative. PHYSICAL EXAMINATION: Vitals: 08/19/24 1618 BP: 126/60 BP Site: Left Arm BP Postition: Sitting BP CUFF SIZE: M (9-13 inches) Pulse: 88 Resp: 20 Temp: 36.7 C (98.1 F) TempSrc: Oral SpO2: 97% Weight: 78.1 kg (172 lb 3.2 oz) Height: 167.6 cm (5' 5.98 ) Patient noted to have elevated BMI and the following intervention(s) were applied: encouragement to exercise. Physical Exam Vitals and nursing note reviewed. Constitutional: General: She is not in acute distress. Appearance: She is well-developed. She is not diaphoretic. HENT: Head: Normocephalic and atraumatic. Right Ear: Tympanic membrane and external ear normal. Left Ear: Tympanic membrane and external ear normal. Nose: Nose normal. Mouth/Throat: Mouth: Mucous membranes are moist. Pharynx: No oropharyngeal exudate. Eyes: General: Right eye: No discharge. Left eye: No discharge. Conjunctiva/sclera: Conjunctivae normal. Pupils: Pupils are equal, round, and reactive to light. Neck: Thyroid: No thyromegaly. Vascular: No JVD. Cardiovascular: Rate and Rhythm: Normal rate and regular rhythm. Heart sounds: Normal heart sounds. No murmur heard. No friction rub. No gallop. Pulmonary: Effort: Pulmonary effort is normal. Breath sounds: Normal breath sounds. Comments: Fine expiratory wheeze LLL Abdominal: General: Bowel sounds are normal. There is no distension. Palpations: Abdomen is soft. There is no mass. Tenderness: There is no abdominal tenderness. Musculoskeletal: General: Normal range of motion. Cervical back: Normal range of motion and neck supple. Lymphadenopathy: Cervical: No cervical adenopathy. Skin: General: Skin is warm and dry. Capillary Refill: Capillary refill takes less than 2 seconds. Neurological: Mental Status: She is alert and oriented to person, place, and time. Deep Tendon Reflexes: Reflexes are normal and symmetric. Psychiatric: Mood and Affect: Mood normal. Behavior: Behavior normal. Thought Content: Thought content normal. Judgment: Judgment normal. ASSESSMENT/PLAN: Carla was seen today for cough. Diagnoses and all orders for this visit: Community acquired pneumonia, unspecified laterality - amoxicillin-pot clavulanate (AUGMENTIN) 875-125 mg per tablet; Take 1 tablet by mouth in the morning and 1 tablet before bedtime. Do all this for 10 days. - predniSONE (DELTASONE) 20 mg tablet; Take 1 tablet (20 mg total) by mouth See Admin Instructions. 1 tab 2x daily x3 days, 1 tab daily x3 days, 1/2 tablet daily x4 days Insomnia, unspecified type - traZODone (DESYREL) 100 mg tablet; Take 1 tablet (100 mg total) by mouth nightly. Pneumonia Reviewed [place] [facility] notes and radiology reports. CT angiogram of chest revealed small bilateral pleural effusions with mild bibasilar infiltrate vs atelectasis. Start Augmentin as directed Prednisone 20 mg taper as directed. Cool mist humidification for congestion, warm salt water gargles as needed for sore throat. Motrin or Tylenol as needed per printing worker supervisor guidelines for fever or pain. Insomnia Start trazodone 100 mg oral nightly ALL QUESTIONS ANSWERED Total time spent was 25 minutes: Preparing to see the patient (e.g., review of tests) Obtaining and/or reviewing separately obtained history Performing a medically appropriate examination and/or evaluation Counseling and educating the patient/family/caregiver Ordering medications, tests, or procedures Follow-up: October Please move next weeks wellness robert to October GARY Quispe 08/19/24 1707 documented in this encounter [facility] 07-22-2024 Telephone encounter Note Cont pain , no fever, pt notes right knee painful.. Cult penidng by Synovial fluid below 50K.. will await other labs test. CBC wnl- elevate platelets.. recommend Predisone taper ( elevated SED/ CRP) - consider Rheum referral pending additional lab test. Pt thankful for call [facility] 07-22-2024 Miscellaneous Notes Cont pain , no fever, pt notes right knee painful.. Cult penidng by Synovial fluid below 50K.. will await other labs test. CBC wnl- elevate platelets.. recommend Predisone taper ( elevated SED/ CRP) - consider Rheum referral pending additional lab test. Pt thankful for call documented in this encounter [facility] 07-19-2024 History of Present illness Narrative Associated [...] Expiration Date: 07/19/2025 Scheduling Instructions: LAB TEST [id number] Lyme Disease, Line Blot Order Specific Question: Print requisition? Answer: No Uric acid Standing Status: Future Number of Occurrences: 1 Standing Expiration Date: 07/19/2025 Order Specific Question: Print requisition? Answer: No Lupus anticoagulant Standing Status: Future Number of Occurrences: 1 Standing Expiration Date: 07/19/2025 Scheduling Instructions: TEST NUMBER [id number] Systemic Lupus Erythematosus (SLE) Profile A Order [...] 07/19/2025 Scheduling Instructions: LAB ANANYA TEST # [id number] Order Specific Question: Print requisition? Answer: No [...] requiring urgent evaluation. documented in this encounter [facility] 06-10-2024 History of Present illness Narrative Images [...] Visit: 1 year documented in this encounter [facility] 05-24-2024 History of Present illness Narrative Images from the original note were not included. Subjective Patient ID: Carla Irby is a 64 y.o. female. LT Wrist ([facility]) Pt is RT handed. Pt did not go to therapy because she states she does not want to pay for it. Pt also states she knowingly went against her Immunohematologist advice of going to therapy because she [...] has not improved. 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 Endorses a [...] to PCP whom then sent her to [facility] ER on 03/24/24, put her on ATB [...] since the past week. She went to [facility] 03/28/24 and they gave her percocet. [place]: XR LT hand 03/24/24/[facility] ER, cephalexin, IBU 800, percocet, MDP 03/28/24, [...] sent referral to O.T. in addition at [facility], also discussed a CT scan and she notes she will hold off for now documented in this encounter [facility] 05-03-2024 History of Present illness Narrative Images [...] nonspecific skin eruption Right Hand - Anterior [place] patches and plaques Lesion biopsy - Right [...] pending biopsy results documented in this encounter [facility] 04-26-2024 History of Present illness Narrative Images from the original note were not included. Subjective Patient ID: Carla Irby is a 64 y.o. female. LT Wrist ([facility]) Pt is RT handed. 2 weeks s/p [...] work, she did not go to the condenser winder because the blister resolved on the MDP. [...] ROM of the left wrist and decreased aircraft lay out worker strength in the left hand. Endorses a [...] to PCP whom then sent her to [facility] ER on 03/24/24, put her on ATB [...] has resolved. 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 Has been using betamethasone dipropionate cream x 2 weeks with relief, states the blisters have not been opening up like they used to. 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 Notes she can see her tendon poking out in the center of her hand since the past week. She went to [facility] 03/28/24 and they gave her percocet. [place]: XR LT hand 03/24/24/[facility] ER, cephalexin, IBU 800, percocet, MDP 03/28/24, [...] the voltaren gel. documented in this encounter [facility] 04-12-2024 History of Present illness Narrative Images [...] with band aid Established patient, referred by Carmen Yap APRN-CHEIKH All pertinent medical history, medications, and allergies [...] Visit: 3 weeks documented in this encounter [facility] 04-12-2024 History of Present illness Narrative Associated Order(s): S Inj/Asp: L thumb CMC Post-Procedure Diagnose(s): Arthritis of carpometacarpal (CMC) joint of left thumb Images from the original note were not included. Subjective Patient ID: Carla Irby is a 64 y.o. female. LT Wrist (Referral [facility]) Pt is RT handed. 2 weeks s/p MDP (03/28/24) with 0% improvement, she is off work, she did not go to the condenser winder because the blister resolved on the MDP. [...] ROM of the left wrist and decreased aircraft lay out worker strength in the left hand. Endorses a [...] to PCP whom then sent her to [facility] ER on 03/24/24, put her on ATB [...] pain gripping the wheel. She went to [facility] 03/28/24 and they gave her percocet. [place]: XR LT hand 03/24/24/[facility] ER, cephalexin, IBU 800, percocet, MDP 03/28/24, XR [facility] 04/12/24 Objective Ortho Exam Hand/Wrist Musculoskeletal Exam [...] trapezial joint. The joint is narrowed and [id number] is noted. Impression: Pantrapezial arthritis, healed distal [...] in 2 weeks. documented in this encounter [facility] 03-29-2024 History of Present illness Narrative Images from the original note were not included. Subjective Patient ID: Carla Irby is a 64 y.o. female. LT Wrist ([facility]) Pt is RT handed. C/o non-healing blister/wound to the left palm she obtained while mowing the lawn 4 weeks ago. Over the past 2 weeks has developed increased swelling, pain, warmth to touch in the left dorsal hand, wrist and distal forearm, decreased ROM of the left wrist and decreased aircraft lay out worker strength in the left hand. Endorses a [...] to PCP whom then sent her to [facility] ER on 03/24/24, put her on ATB cephalexin q6hrs for 5 days, she had xrays done of the left hand in addition Constant pain around base of her thumb, and dorsum of hand and wrist, and ulnar aspect of hand. Denies radiation. Admits waking at night. She tried using her old brace from her ORIF surgery, w/o relief. Pain is a constant 9-04/29. Describes pain as a deep sharp ache [...] pain gripping the wheel. She went to [facility] yesterday and they gave her percocet. [place]: XR LT hand 03/24/24/[facility] ER, cephalexin, IBU 800, percocet Objective Ortho [...] the left hand done on 03/24/24 at [facility] they are unremarkable for fracture. I reviewed the [facility] er note from 03/24/24, concerned for an [...] and it resembles psoriases, discussed calling her condenser winder, will try MDP, will try MDP, take as directed, no nsaids while taking MDP until 24 hrs after the last dose of MDP, may increase BP/HR , f/U in 2 weeks, discussed to wash and cleanse daily . Discussion of xrays to include first cmc joint and she understands this, recommend off work till f/U appt documented in this encounter [facility] 10-30-2023 Miscellaneous Notes Called to move appt from 330 to 320 on 12/01 documented in this encounter [facility] [email or web address] [facility] 10-30-2023 Telephone encounter Note Called to move appt from 330 to 320 on 12/01 [facility] Evaluation note No assessment inform ation available [facility] Work Phone: Evaluation note Diagnosis Onset Date Swelling of joint, wrist, left acute [facility] Work Phone: Evaluation note* Diagnosis Left wrist pain- Primary Pain in joint, forearm Swelling of left wrist Arthritis of carpometacarpal (CMC) joint of left thumb Arthritis of left wrist documented in this encounter [facility] HealthcareEvaluation note* Diagnosis Rash and other nonspecific skin eruption documented in this encounter [facility] HealthcareEvaluation note* Diagnosis Left wrist pain- Primary [...] Benign essential HTN [facility] Diagnosis Left wrist pain- Primary [...] of left knee documented [facility] this encounter [facility]* Diagnosis Anxiety and depression- Primary Personal history of nicotine dependence Cigarette smoker Tobacco use disorder Essential hypertension Unspecified essential hypertension Tobacco use Menopausal state Symptomatic menopausal or female climacteric states Screening for malignant neoplasm of breast Breast screening, unspecified Community acquired pneumonia, unspecified laterality- Primary Insomnia, unspecified type [facility] Diagnosis Anxiety and depression Benign essential HTN [facility] Additional Instructions Please return to emergency department for any new or worrisome symptoms including any fever, vomiting, increased redness or swelling to your hand or arm or if you develop any numbness, weakness, tingling. Follow-up with your family physician and Dr. Preciado as directed. Take all antibiotics even if you start feeling better.[facility] Work Phone: InstructionsNot on filedocumented in this encounter [facility] SystemInstructionsNot on filedocumented in this encounter [facility]* Attachments The following attachments cannot be sent through Care Everywhere. * Community-Acquired Pneumonia Discharge Instructions, Adult (Portuguese) documented [facility] SystemInstructionsNot on file documented in this encounterProUniversity Hospitals St. [facility] CenterReason for referral (narrative)* Consultation (Routine) - Pending Review Specialty Diagnoses / Procedures Referred By Contact Referred To Contact Occupational Therapy / Physical Therapy Diagnoses Left wrist pain Swelling of left wrist Arthritis of left wrist Procedures [place] [facility] MDM 60 MINUTES Carmen Yap NP [address] [place] [address] Karena Levin OT [address] [place] [address] Referral ID Status Reason Start Date Expiration Date Visits Requested Visits Authorized [id number] Pending Review Consult and Treat 04/26/2024 10/23/2024 1 1 [facility] for referral (narrative)* Consultation (Routine) - Closed Specialty Diagnoses / Procedures Referred By Contac t Referred To Contact Dermatology Diagnoses bilateral hand lesions in the palm Procedures [place] [facility] MDM 60 MINUTES Carmen Yap NP [address] [place] [address] Isabella Lozoya, SUPERVISOR LANDSCAPE-AUTOMATION CONTROL INTEGRATOR [address] [place] [address] Referral ID Status Reason Start Date Expiration Date V isits Requested Visits Authorized [id number] Closed Specialty Services Required 04/12/2024 10/09/2024 1 1 * Orthopedic (Routine) - Closed Specialty Diagnoses / Procedures Referred By Contac t Referred To Contact Orthopaedic Surgery Diagnoses Arthritis of carpometacarpal (CMC) joint of left thumb Procedures S Inj/Asp: L thumb CMC Carmen Yap NP [address] [place] [address] Referral ID Status Reason Start Date Expiration Date Visits Re quested Visits Authorized [id number] Closed 04/12/2024 10/09/2024 1 1 [facility] Summary Purpose Family History Relationship Condition Age at Onset Recorded Date/T mychal father Hypertension Unknown mother Heart disease Unknown Advance Directives Advance Directive Response Recorded Date/ Time Advance [...] and content) DATE CREATED AUTHOR 07/02/2022 [facility] DATE CREATED AUTHOR AUTHOR'S ORGANIZ ATION 04/10/2024 [facility] DATE CREATED AUTHOR AUTHOR'S ORGANIZ ATION 07/08/2024 [facility] DATE CREATED AUTHOR AUTHOR'S ORGANIZ ATION 07/30/2024 [facility] DATE CREATED AUTHOR AUTHOR'S ORGANIZ ATION 08/22/2024 [facility] Care Teams (unrecognized sec tion and content) [...] March 28, 2024 End: March 28, 2024 Payroll Analyst Relationship Specialty Start Date End Date Unallocated, Tim Robert MD [address] [place] [address] PCP - General Family Medicine 04/12/24 Yola Herr CRNP [address] [place] [address] Referring Physician Nurse Practitioner 03/29/24 Payroll Analyst Relationship Specialty Start Date End Date Unallocated, Tim Robert MD [address] [place] [address] PCP - General Family Medicine 04/12/24 Yola Herr CRNP [address] [place] [address] Referring Physician Nurse Practitioner 03/29/24 Payroll Analyst Relationship Specialty Start Date End Date Unallocated, Tim Robert MD [address] [place] [address] PCP - General Family Medicine 04/12/24 Yola Herr CRNP [address] [place] [address] Referring Physician Nurse Practitioner 03/29/24 Payroll Analyst Relationship Specialty Start Date End Date Unallocated, Tim Robert MD [address] [place] [address] PCP - General Family Medicine 04/12/24 Yola Herr CRNP [address] [place] [address] Referring Physician Nurse Practitioner 03/29/24 Payroll Analyst Relationship Specialty Start Date End Date Unallocated, Tim Robert MD [address] [place] [address] PCP - General Family Medicine 04/12/24 Yola Herr CRNP [address] [place] [address] Referring Physician Nurse Practitioner 03/29/24 Payroll Analyst Relationship Specialty Start Date End Date Unallocated, Tim Robert MD [address] [place] [address] PCP - General Family Medicine 04/12/24 Yola Herr CRNP [address] [place] [address] Referring Physician Nurse Practitioner 03/29/24 Payroll Analyst Relationship Specialty Start Date End Date Unallocated, Tim Robert MD [address] [place] [address] PCP - General Family Medicine 04/12/24 Yola Herr CRNP [address] [place] [address] Referring Physician Nurse Practitioner 03/29/24 Payroll Analyst Relationship Specialty Start Date End Date Unallocated, Tim Robert MD [address] [place] [address] PCP - General Family Medicine 04/12/24 Yola Herr CRNP [address] [place] [address] Referring Physician Nurse Practitioner 03/29/24 Payroll Analyst Relationship Specialty Start Date End Date Yola Herr, SUPERVISOR LANDSCAPE-AUTOMATION CONTROL INTEGRATOR [address] [place] [address] [place] [address] PCP - General Family Medicine 07/05/19 Payroll Analyst Relationship Specialty Start Date End Date Yola Herr CRNP [address] [place] [address] Referring Physician Nurse Practitioner 03/29/24 Payroll Analyst Relationship Specialty Start Date End Date Yola Herr CRNP [address] [place] [address] Referring Physician Nurse Practitioner 03/29/24 Payroll Analyst Relationship Specialty Start Date End Date Unallocated, Tim Robert MD [address] [place] [address] PCP - General Family Medicine 04/12/24 Yola Herr CRNP [address] [place] [address] Referring Physician Nurse Practitioner 03/29/24 Payroll Analyst Relationship Specialty Start Date End Date Unallocated, Tim Robert MD [address] [place] [address] PCP - General Family Medicine 04/12/24 Yola Herr CRNP [address] [place] [address] Referring Physician Nurse Practitioner 03/29/24 Payroll Analyst Relationship Specialty Start Date End Date Unallocated, Tim Robert MD [address] [place] [address] PCP - General Family Medicine 04/12/24 Yola Herr CRNP [address] [place] [address] Referring Physician Nurse Practitioner 03/29/24 Payroll Analyst Relationship Specialty Start Date End Date Unallocated, Huberts MD Jakob [address] [place] [address] PCP - General Family Medicine 04/12/24 Yola eHrr CRNP [address] [place] [address] Referring Physician Nurse Practitioner 03/29/24 Payroll Analyst Relationship Specialty Start Date End Date Unallocated, Noms MD Jakob [address] [facility] [place] [address] PCP - General Family Medicine 04/12/24 Yola Herr CRNP [address] [place] [address] Referring Physician Nurse Practitioner 03/29/24 Payroll Analyst Relationship Specialty Start Date End Date Yola Herr APRN-AUTOMATION CONTROL INTEGRATOR [address] [place] [address] PCP - General Family Medicine 07/05/19 Payroll Analyst Relationship Specialty Start Date End Date Yola Herr APRN-CHEIKH [address] [place] [address] [place] [address] PCP - General Family Medicine 07/05/19 Payroll Analyst Relationship Specialty Start Date End Date Yola Herr APRN-AUTOMATION CONTROL INTEGRATOR [address] [place] [address] PCP - General Family Medicine 07/05/19 Goals (unrecognized section and content) Goals may be documented in a n alternate sectionGoals may be documented in an alternate sectionGoals may be documented in an alternate sectionNot on filedocumented as of this encounterNot on filedocumented as of this encounterNot on filedocumented as of this encounterNot on filedocumented as of this encounter Reason for Visit (unrecogniz ed section and content) Reason Comments Follow-up Reason Comments Follow-up Reason Onset Date Comments OT Initial Eval 04/27/2024 Called to inform off referral per Fracisco a $25.00 copay at [facility] is required. She said due to time [...] bilateral hand lesions in the palm Procedures [place] [facility] MDM 60 MINUTES Carmen Yap, NIGHT AUDITOR [address] [place] [address] Isabella Lozoya, SUPERVISOR LANDSCAPE-AUTOMATION CONTROL INTEGRATOR [address] [place] [address] Referral ID Status Reason Start Date Expiration Date V isits Requested Visits Authorized [id number] Closed Specialty Services Required 04/12/2024 10/09/2024 1 1 Reason Comments Cough Sore chest, Pneumoni a FOR RECORDS PERTAINING TO PATIENTS WHO ARE [...] BE BASED ON THE PRIMARY CLINICAL RECORDS. [employer] provides no warranty or guarantee of the accuracy or completeness of information in this document.
--- NOTE | 2024-09-02 15:38 | XR_ITS ---
The [address] [address] Patient Name: CARLA HERNANDEZ MRN: [id number] date: 1960 Sex: F Assigned Patient Location: LAB Current Patient Location: Accession/Order Number: [id number] Exam Date: 09/02/2024 15:43 Report Date: 09/03/2024 18:07 At the request of: IRENE GARCIA Procedure: XR chest 2V EXAMINATION: XR chest 2V HISTORY: Cough, Immunosuppression, Psoriatic Arthritis COMPARISON: No relevant comparison available. FINDINGS: LUNGS: No significant pulmonary parenchymal abnormalities. VASCULATURE: No increased pulmonary vasculature. PLEURA: No pneumothorax, effusion, or pleural thickening. CARDIAC: No cardiomegaly or cardiac silhouette abnormality. MEDIASTINUM: No visible mass or adenopathy. BONES: No fracture or visible bone lesion. OTHER: Negative. XR/XR chest 2V IMPRESSION: 1. No acute cardiopulmonary process. Clearing of previously seen infiltrates. Electronically authenticated by: RIDDHI VELASCO Date: 09/03/2024 18:07
[2024-09-02 15:45] LABS: Basophils Percent Auto 0.3 % (0.2-2.0); Eosinophils Absolute Auto 0.1 10^3/uL (0.0-0.7); Eosinophils Percent Auto 0.6 % (0.9-7.0); Hematocrit 36.6 % (36.0-48.0); Hemoglobin 11.6 g/dL (12.0-16.0); Immature Granulocytes Abs Auto 0.05 10^3/uL (0.00-0.03); Immature Granulocytes Pct Auto 0.3 % (0.0-0.5); Lymphocytes Absolute Auto 2.3 10^3/uL (1.2-3.8); Lymphocytes Percent Auto 14.8 % (20.5-60.0); Mean Corpuscular HGB Conc 31.7 g/dL (29.9-35.2); Mean Corpuscular Hemoglobin 26.5 pg (26.7-34.0); Mean Corpuscular Volume 83.6 fL (81.0-99.0); Mean Platelet Volume 8.6 fL (9.5-13.5); Monocytes Absolute Auto 0.9 10^3/uL (0.3-0.8); Platelet Count 427 10^3/uL (150-450); Red Blood Count 4.38 10^6/uL (4.20-5.40); Red Cell Distribution Width 15.5 % (11.0-15.0); White Blood Count 15.4 10^3/uL (4.0-11.0)
[2024-09-02 15:51] LABS: Erythrocyte Sedimentation Rate 37 mm/hr (<=30)
[2024-09-02 16:03] LABS: Alanine Aminotransferase 49 U/L (14-59); Albumin Globulin Ratio 0.8; Alkaline Phosphatase 93 U/L (46-116); Aspartate Amino Transferase 21 U/L (15-37); BUN Creatinine Ratio 28.2; Bilirubin Total 0.2 mg/dL (0.2-1.0); C Reactive Protein 5.02 mg/dL (<=0.50); Calcium 8.9 mg/dL (8.5-10.1); Carbon Dioxide 27.9 mmol/L (21.0-32.0); Chloride 102 mmol/L (98-107); Estimated GFR (African America >60 (>=60 mL/min/1.73m^2); Estimated GFR (Non-African Ame >60 (>=60 mL/min/1.73m^2); Globulin 3.7 g/dL; Glucose 109 mg/dL (74-106); Potassium 3.9 mmol/L (3.5-5.1); Sodium 140 mmol/L (136-145); Total Protein 6.7 g/dL (6.4-8.2)
== END 2024-09-02 15:27 | disposition home or self-care (01) ==
LOC: LAB 15:26
PROVIDERS: PCP Nurse Practitioner; Visit Provider Internal Medicine Rheumatology
DX: L40.50 Arthropathic psoriasis, unspecified (principal); M19.90 Unspecified osteoarthritis, unspecified site; Z51.81 Encounter for therapeutic drug level monitoring; D84.9 Immunodeficiency, unspecified; R05.9 Cough, unspecified
CPT/HCPCS: 36415; 71046; 80053; 85025; 85652; 86140

== ENCOUNTER 2025-01-25 07:28 | Outpatient (OUT) | payer BC, SELFPAY ==
--- OUTSIDE RECORDS SUMMARY | 2024-10-27 22:27 | XMS_ITS ---
Author Organization OHIP Support Name Relationship Address Phone CHRISTEN DUKES Unknown Unknown Unavailable KIAN, CHRISTEN Unknown Unknown Unavailable KIAN, CHRISTEN Unknown Unknown Un[place] [address] [phone] KIAN, CHRISTEN NaturalDaughter Unknown +[phone] KIAN, CHRISTEN NaturalDaughter Unknown +[phone] KIAN, CHRISTEN Unknown Unknown Unavailable [place] [address] [phone] KIAN, CHRISTEN NaturalDaughter Unknown +[phone] KIAN, CHRISTEN NaturalDaughter Unknown [phone] KAIN, CHRISTEN NaturalDaughter Unknown [phone] KIAN, CHRISTEN NaturalDaughter Unknown [phone] KIAN, CHRISTEN NaturalDaughter Unknown +[phone] KIAN, CHRISTEN NaturalDaughter Unknown +[phone] KIAN, CHRISTEN NaturalDaughter Unknown +[phone] KIAN, CHRISTEN NaturalDaughter Unknown +[phone] Kian, [place] [address] [phone] Kian, [place] [address] [phone] KIAN, CHRISTEN Unknown Unknown Unavailable [place] [address] [phone] KIAN, CHRISTEN Unknown Unknown Unavailable [place] [address] [phone] Care Team Providers Care Card Stripper Name Role Phone YOLA HERR Referring Unavailable YOLA HERR Primary Care Unavailable YOLA HERR Referring Unavailable YOLA HERR Primary Care Unavailable YOLA HERR Referring Unavailable YOLA HERR Primary Care Unavailable YOLA HERR Attending Unavailable YOLA HERR Referring Unavailable YOLA HERR Primary Care Unavailable YOLA HERR Attending Unavailable YOLA HERR Referring Unavailable YOLA HERR Primary Care Unavailable YOLA HERR Referring Unavailable YOLA HERR Primary Care Unavailable Yola Herr Primary Care Unavailable Apurva Martinez Admitting Unavailable Apurva Martinez Attending Unavailable Yola Herr Primary Care Unavailable Randell Ledbetter Admitting Unavailable Randell Ledbetter Attending Unavailable APLING, RISHABH B Attending Unavailable APLING, RISHABH B Attending Unavailable APLING, RISHABH B Referring Unavailable FELTERISABELLA A Attending Unavailable APLING, RISHABH B Referring Unavailable APLING, RISHABH B Attending Unavailable FELTER, ISABELLA A Attending Unavailable APLING, RISHABH B Attending Unavailable ISABELLA MCCALL A Attending Unavailable IRENE HARTMAN Attending Unavailable IRENE HARTMAN Referring Unavailable Purpose PROBLEMS DATE TYPE CONDITION / CODE ATTENDING STATUS [facility] 04/05/2020 Unknown Encounter for neral adult medical examination without abnormal findings / Z00.00(ICD-10) YOLA HERR [facility] 07/25/2018 Unknown Encounter for screening mammogram for malignant neoplasm of breast / Z12.31(ICD-10) YOLA HERR [facility] 02/20/2017 Unknown Anxiety disorder , unspecified / F41.9(ICD-10) VAMSI YOLA [facility] 02/20/2017 Unknown Depression, unspecified / F32.A(ICD-10) YOLA HERR [facility] 10/27/2024 Unknown Essential (prima ry) hypertension / I10(ICD-10) YOLA HERR [facility] 10/27/2024 Unknown Annual Exam / FREETEXT(AOF) YOLA HERR [facility] 08/19/2024 Unknown Pneumonia, unspe cified organism / J18.9(ICD-10) YOLA HERR [facility] 08/19/2024 Unknown Insomnia, unspec ified / G47.00(ICD-10) VAMSI YOLA [facility] 08/19/2024 Unknown Cough / FREETEXT(AOF) YOLA HERNANDEZ [facility] 07/05/2024 Unknown Encounter for screening for osteoporosis / Z13.820(ICD-10) NA [facility] 07/05/2024 Unknown Asymptomatic menopausal state / Z78.0(ICD-10) NA [facility] 03/28/2024 Unknown Pain in left wri st / M25.532(ICD-10) Randell Ledbetter [facility] 03/24/2024 Unknown Other specified soft tissue disorders / M79.89(ICD-10) Apurva Martinez [facility] 01/27/2024 Unknown Pain, unspecifie d / R52(ICD-10) [facility] PROCEDURES No Procedure Records Found VITAL SIGNS No Vital Signs Records Found RESULTS CBC AND AUTO DIFF Collected: 10/27/2024 3:59 PM Status: COMPLETED Source: [facility] TYPE CODE TESTS RESULT OUT OF RANGE REFERENCE UNITS LAB WBC(LOINC) WBC COUNT 9.3 4.0-11.0 X10E9/L LAB RBC(LOINC) RBC COUNT 4.77 3.80-5.20 X10E12/L LAB HGB(LOINC) HEMOGLOBIN 12.8 11.7-15.5 g/dL LAB HCT(LOINC) HEMATOCRIT 38.9 35-47 % LAB MCV(LOINC) MCV 82 80-100 fL LAB MCH(LOINC) MCH 26.9 Low 27-34 pg LAB MCHC(LOINC) MCHC 33.0 32-36 g/dL LAB RDW(LOINC) RDW 19.2 High 11.5-15.0 % LAB PLTC(LOINC) PLATELET COUNT 350 150-450 X10E9 /L LAB MPV(LOINC) MPV 7.8 7-12 fL LAB NEUT(LOINC) % NEUTROPHILS 54.1 % LAB LYMP(LOINC) % LYMPHOCYTES 37.6 % LAB MONO(LOINC) % MONOCYTES 5.5 % LAB EOS(LOINC) % EOSINOPHILS 1.7 % LAB BASO(LOINC) % BASOPHILS 1.1 % LAB ANEUT(LOINC) ABSOLUTE NEUTROPHIL 5.0 1.5-6.6 X10E9/L LAB ALYMP(LOINC) ABSOLUTE LYMPHOCYTE 3.5 1.0-3.5 X10E9/L LAB AMONO(LOINC) ABSOLUTE MONOCYTE 0.5 0-0.9 X10E9/L LAB AEOS(LOINC) ABSOLUTE EOSINOPHIL 0.2 0.0-0.4 X10E9/L LAB ABASO(LOINC) ABSOLUTE BASOPHIL 0.1 0.0-0.2 X10E9/L Performed By: #### CBCNicolas, CORY , 32988-9, HA1C #### [facility] ([id number]) [address], [address] [place] [address] COMPREHENSIVE METABOLIC PANEL Collected: 2024 3:59 PM Status: COMPLETED Source: [facility] TYPE CODE TESTS RESULT OUT OF RANGE REFERENCE UNITS LAB NA(LOINC) SODIUM 140 134-146 mmol/L LAB K(LOINC) POTASSIUM 3.5 3.5-5.0 mmol/L LAB CL(LOINC) CHLORIDE 105 98-109 mmol/L LAB CO2(LOINC) CARBON DIOXIDE 26 22-32 mmol/L LAB AGAP(LOINC) ANION GAP 9 5-15 mmol/L LAB BUN(LOINC) BLOOD UREA NITROGEN 18 5-27 mg/dL LAB CRET(LOINC) CREATININE 0.45 0.40-1.00 mg/dL Result Comment: METHOD TRACE ABLE TO IDMS STANDARD LAB GLU(LOINC) GLUCOSE 103 High 65-99 mg/dL LAB CA(LOINC) CALCIUM 9.3 8.5-10.5 mg/dL LAB TP(LOINC) TOTAL PROTEIN 6.6 6.0-8.0 g/dL LAB ALB(LOINC) ALBUMIN 4.1 3.2-5.3 g/dL LAB ALK(LOINC) ALKALINE PHOSPHATASE 63 39-130 U/L LAB AST(LOINC) AST 19 0-41 U/L LAB ALT1(LOINC) ALT 24 0-31 U/L LAB TBIL(LOINC) BILIRUBIN,TOTAL 0.3 0.3-1.2 mg/d L LAB EGFR(LOINC) eGFR (CKD-EPI) NON-RACE DEPENDENT >90 >59 ml/min/1 .73sq.m Result Comment: Reported eGFR is based on the CKD-EPI 2020 equation that does not use a race coefficient. Performed By: #### CBCA, CMP , 87287-1, HA1C #### [facility] ([id number]) [address] [place] [address], [address] [place] [address] LIPID PROFILE Collected: 10/27/2024 3:59 PM Status: COMPLETED Source: [facility] TYPE CODE TESTS RESULT OUT OF RANGE REFERENCE UNITS LAB CHOL(LOINC) CHOLESTEROL 175 150-200 mg/dL LAB TRIG(LOINC) TRIGLYCERIDE 91 27-150 mg/dL LAB HDL(LOINC) HDL CHOLESTEROL 62 >39 mg/dL Result Comment: HDL <40 mg/dL - High Risk HDL > or = 40mg/dL- Desirable HDL >60 mg/dL - Negative Risk LAB VLDL(LOINC) VERY LOW LIPOPROTEIN 18 0-30 mg/dL LAB LDL(LOINC) LDL (CALC) 95 <130 mg/dL Result Comment: LDL <100 mg/dL - Desirable LDL >160 mg/dL - High Risk LAB CHDL(LOINC) CHOLESTEROL:HDL 2.8 1.0-5.0 Performed By: #### [facility] , 66709-3, HA1C #### [facility] ([id number]) [address] [place] [address], [address] [place] [address] HGB A1C (GLYCO-HGB) Collected: 10/27/2024 3:59 PM Status: COMPLETED Source: [facility] TYPE CODE TESTS RESULT OUT OF RANGE REFERENCE UNITS LAB HBA1C(LOINC) HEMOGLOBIN A1C 5.7 High 4.4-5.6 % Result Comment: NOTE ADA Guidelines Result HgbA1c Normal : less than 5.7 % Prediabetes : 5.7 % to 6.4 % Diabetes : > 6.4 % Use with caution in patients with abnormal hemoglobin variants as the half-life of red blood cells and in vivo glycation rates are affected. LAB EAG([facility]) AVERAGE GLUCOSE 117 mg/dL Performed By: #### [facility] , 13303-6, HA1C #### [facility] ([id number]) [address], [address] [place] [address] DEXA SCAN CENTRAL SKELETAL Observed: 3:40 PM Status: COMPLETED Source: [facility] DEXA SCAN CENTRAL SKELETAL CLINICAL INFORMATION: Encounter [...] Rito Marquez MD on 07/05/2024 4:41 PM COMPLETE BLOOD COUNT AUTO DIFF Collected: 03/28/2024 2:10 PM Status: F Source: F [facility] TYPE CODE TESTS RESULT OUT OF RANGE REFERENCE UNITS LAB WBC White Blood Count 8.0 Normal 3.8-11.6 10*3/uL LAB UNWBC Uncorrected WBC 8.0 Normal 3.8-11.6 10*3/uL LAB RBC Red Blood Count 4.48 Normal 3.60-5.00 LAB HGB Hemoglobin 13.0 Normal 11.8-15.4 g/dL LAB HCT Hematocrit 37.9 Normal 34.0-46.4 % LAB MCV Mean Corpuscular Volume 84.7 Normal 80-100 fL LAB MCH Mean Corpuscular Hemoglobin 29.1 Normal 24.7-34.3 pg LAB MCHC Mean Corpuscular HGB Conc 34.4 Normal 32.0-35.0 g/dL LAB RDW Red Cell Distribution Width 13.1 Normal 11.9-15.3 % LAB PLT Platelet Count 327 Normal 150-450 10*3/uL LAB MPV Mean Platelet Volume 7.4 Normal 6.3-10.7 fL LAB MDW Monocyte Distribution Width 19.87 Normal 0.00-20.00 % LAB NE% Neutrophils % (Auto) 66.0 . % LAB LY% Lymphocytes % (Auto) 26.0 . % LAB MO% Monocytes % (Auto) 5.8 . % LAB EO% Eosinophils % (Auto) 1.5 . % LAB BA% Basophils % (Auto) 0.7 . % LAB NRBC% NRBC% 0.1 Normal 0-0.5 /100{WBC } LAB NE# Neutrophils # (Auto) 5.3 Normal 1.8-7.7 10*3/uL LAB LY# Lymphocytes # (Auto) 2.1 Normal 1.00-4.8 10*3/uL LAB MO# Monocytes # (Auto) 0.5 Normal 0.0-0.8 10*3/uL LAB EO# Eosinophils # (Auto) 0.1 Normal 0.0-0.45 10*3/uL LAB BA# Basophils # (Auto) 0.1 Normal 0.0-0.2 10*3/uL Performed By: #### ESR, CBC #### [place] [id number] [facility] ERYTHROCYTE SEDIMENTATION RATE Collected: 03/28/2024 2:10 PM Status: F Source: [facility] TYPE CODE TESTS RESULT OUT OF RANGE REFERENCE UNITS LAB ESR Erythrocyte Sedimentation Rate 20 Normal 0-29 Result Comment: PERFORMED BY : [place] [address] PATHOLOGIST [employer] NAFISA LO M.D. Performed By: #### ESR, CBC #### [address] ECG 12 LEAD ECG Observed: 03/28/2024 2:07 PM Status: COMPLETED Source: [place] [address] Electrocardiograph Report Signed Patient: Carla Irby MR#: [id number] 74 : 1960 Acct:[id number] Age/Sex: 64 / F ADM Date: 03/28/24 Loc: ER Room: Type: [facility] ER Attending Dr: Ordering Provider: Randell [...] Signed By Randell Ledbetter MD 03/13 1551 XR HAND LT MIN 3V* Observed: 03/24/2024 4:24 PM Status: COMPLETED Source: [place] [address] XRay Report Signed Patient: Carla Irby MR#: [id number] [birth year] : 1960 Acct:[id number] Age/Sex: 64 / F ADM Date: 03/24/24 Loc: ER Room: Type: [facility] ER Attending Dr: Copies to: Apurva [...] Lupis Dukes M.D.03/24/2024 4:26 PM Dictation Location: [place] [address] Transcribed By: [facility] 03/24/241625 Dictated By: Lupis Dukes MD 03/24/241623 Signed By: <Electronically signed by MD Lupis Dukes in OV> 03/24/241625 BASIC METABOLIC PANEL Collected: 03/24/2024 4:05 PM Status: F Source: [facility] TYPE CODE TESTS RESULT OUT OF RANGE REFERENCE UNITS LAB GLU Glucose 110 High 70-100 mg/dL Result Comment: Random Gluco se Reference Range is dependent on time and content of last meal. Glucose of more than 200 mg/dL in a nonstressed, ambulatory subject supports the diagnosis of Diabetes Mellitus. ADA recommended reference range LAB BUN Blood Urea Nitrogen 19 Normal 7-25 mg/dL LAB CREATT Creatinine 0.60 Normal 0.60-1.20 mg/dL LAB GFReNR Estimated GFR > 60.0 LAB NA Sodium 141 Normal 136-145 mmol/L LAB K Potassium 3.8 Normal 3.5-5.1 mmol/L LAB CL Chloride 107 Normal 98-107 mmol/L LAB CO2 Carbon Dioxide 26.6 Normal 21.0-31.0 mmol/L LAB GAP Anion Gap 11.2 Normal 6.0-15.0 LAB CA Calcium 8.6 Normal 8.6-10.3 mg/dL LAB CRCLPHA Creatinine Clr Calc Pharmacy 98.37 Performed By: #### ESR, CBC, CRP, BMP #### [facility] [address] [place] [address] [place] C-REACTIVE PROTEIN Collected: 03/24/2024 4:05 PM Sta tus: F Source: [facility] TYPE CODE TESTS RESULT OUT OF RANGE REFERENCE UNITS LAB CRP C-Reactive Protein 2.8 High 0.0-0.5 mg/dL Result Comment: PERFORMED BY : [place] [address] PATHOLOGIST [employer] NAFISA LO M.D. Performed By: #### ESR, CBC, CRP, BMP #### [facility] [address] [place] [id number] [facility] COMPLETE BLOOD COUNT AUTO DIFF Collected: 03/24/2024 4:05 PM Status: F Source: F [facility] TYPE CODE TESTS RESULT OUT OF RANGE REFERENCE UNITS LAB WBC White Blood Count 9.8 Normal 3.8-11.6 10*3/uL LAB UNWBC Uncorrected WBC 9.8 Normal 3.8-11.6 10*3/uL LAB RBC Red Blood Count 4.45 Normal 3.60-5.00 LAB HGB Hemoglobin 12.8 Normal 11.8-15.4 g/dL LAB HCT Hematocrit 38.1 Normal 34.0-46.4 % LAB MCV Mean Corpuscular Volume 85.6 Normal 80-100 fL LAB MCH Mean Corpuscular Hemoglobin 28.8 Normal 24.7-34.3 pg LAB MCHC Mean Corpuscular HGB Conc 33.7 Normal 32.0-35.0 g/dL LAB RDW Red Cell Distribution Width 13.3 Normal 11.9-15.3 % LAB PLT Platelet Count 313 Normal 150-450 10*3/uL LAB MPV Mean Platelet Volume 7.5 Normal 6.3-10.7 fL LAB MDW Monocyte Distribution Width 17.82 Normal 0.00-20.00 % LAB NE% Neutrophils % (Auto) 72.6 . % LAB LY% Lymphocytes % (Auto) 19.0 . % LAB MO% Monocytes % (Auto) 6.5 . % LAB EO% Eosinophils % (Auto) 1.4 . % LAB BA% Basophils % (Auto) 0.5 . % LAB NRBC% NRBC% 0.1 Normal 0-0.5 /100{WBC } LAB NE# Neutrophils # (Auto) 7.1 Normal 1.8-7.7 10*3/uL LAB LY# Lymphocytes # (Auto) 1.9 Normal 1.00-4.8 10*3/uL LAB MO# Monocytes # (Auto) 0.6 Normal 0.0-0.8 10*3/uL LAB EO# Eosinophils # (Auto) 0.1 Normal 0.0-0.45 10*3/uL LAB BA# Basophils # (Auto) 0.0 Normal 0.0-0.2 10*3/uL Performed By: #### ESR, CBC, CRP, BMP #### [facility] [address] ERYTHROCYTE SEDIMENTATION RATE Collected: 03/24/2024 4:05 PM Status: F Source: [facility] TYPE CODE TESTS RESULT OUT OF RANGE REFERENCE UNITS LAB ESR Erythrocyte Sedimentation Rate 16 Normal 0-29 Result Comment: PERFORMED BY : [place] [address] PATHOLOGIST [employer] NAFISA LO M.D. Performed By: #### ESR, CBC, CRP, BMP #### [facility] [address] ALLERGIES DATE TYPE / CODE NAME / CODE REACTION SEVERITY SOURCE 03/28/2024 Drug Allergy/7350706 02(SNOMED CT) No Known Allergies/P029857309 (RXNORM) Unknown [facility] Drug Class/947050552 (SNOMED CT) NO KNOWN ALLERGIES [facility] ENCOUNTERS ADMIT/DISCHARGE ACCOUNT NUMBER ADMITTING ENCOUNTER CLASS LOCATION SOURCE 10/27/2024/10/28/19 [id number] Ambulatory Building:PTH _PML [facility] 10/27/2024/10/28/19 [id number] Ambulatory Buildin [facility] 08/19/2024/08/19/19 25 [id number] Ambulatory Buildin [facility] 07/19/2024/07/19/20 24 [id number] Ambulatory Building:[facility] 07/19/2024/07/19/20 24 [id number] Ambulatory Building:[facility] 07/05/2024/07/05/20 24 [id number] Ambulatory Building:PFM _DXR [facility] 06/10/2024/06/10/20 24 [id number] Ambulatory Building:NOM S [facility] 05/24/2024/05/24/20 24 [id number] Ambulatory Building:[facility] 05/03/2024/05/03/20 24 [id number] Ambulatory Building:NOM S [facility] 04/26/2024/04/26/20 24 [id number] Ambulatory Building:[facility] 04/12/2024/04/12/20 24 [id number] Ambulatory Building:NOM S [facility] 04/12/2024/04/12/20 24 [id number] Ambulatory Building:[facility] 04/12/2024/04/12/20 24 [id number] Ambulatory Building:[facility] 03/29/2024/03/29/20 24 [id number] Ambulatory Building:[facility] 03/28/2024/03/28/20 24 [id number] [facility] 03/24/2024/03/24/20 24 [id number] Apurva Martinez [facility] 01/27/2024 [id number] Ambulatory Building:[facility] 01/27/2024 [id number] Ambulatory Building:[facility] FUNCTIONAL STATUS No Functional Status Records Found EQUIPMENT No Equipment Records Found PAYERS ENCOUNTER GUARANTOR PAYER SUBSCRIBER SOURCE 10/27/2024 CARLA MURRAY: [place], [place] [address]Ptj: () Primary Insurance:[facility] HMO/PPO/TRUSTPolic y Number: [id number] mary Date:2023-07-21 CARLA MURRAY: [id number] [place], [place] [address]Pvs: (HP) (WP) [facility] 10/27/2024 CARLA IRBYB: [place], [place] [address]Ljw: (HP) Primary Insurance:[facility] HMO/PPO/TRUSTPolic y Number: [id number] mary Date:2023-07-21 CARLA IRBYB: [id number] [place], [place] [address]Ksx: (HP) (WP) [facility] 08/19/2024 CARLA IRBYB: [place], [place] [address]Elk: (HP) Primary [facility]/TRUSTPolic y Number: [id number] mary Date:2023-07-21 CARLA IRBYB: [id number] [place], [place] [address]Waz: (HP) (WP) [facility] 07/19/2024 CARLA IRBYB: [place] [address]Cwp: (HP) (WP) Primary Insurance:BCBSPoli cy Number: [id number] mary Date:2023-07-21 CARLA IRBYDOB: [id number] [place] [address] [facility] 07/19/2024 CARLA IRBYB: [place] [address]Xfv: (HP) (WP) Primary Insurance:BCBSPoli cy Number: [id number] mary Date:2023-07-21 CARLA CAINB: [id number] [place] [address] [facility] 07/05/2024 CAR[address] IRBYDOB: [facility], [place] [address]Efs: (HP) Primary Insurance:[facility] HMO/PPO/TRUSTPolic y Number: [id number] mary Date:2023-07-21 CARLA CAINB: [id number] [place], [place] [address]Abn: (HP) (WP) [facility] 06/10/2024 CARLA IRBYDOB: [place] [address]Nyr: (HP) (WP) Primary Insurance:[facility] cy Number: [id number] mary Date:2023-07-21 CARLA CAINB: [id number] [place] [address] [facility] 05/24/2024 CARLA [place]INB: [place] [address]Ptk: (HP) (WP) Primary Insurance:[facility] cy Number: [id number] mary Date:2023-07-21 CARLA IRBYDOB: [id number] [place] [address] [facility] 05/03/2024 ACRLA IRBYB: [place] [address]Jia: (HP) (WP) [facility] Insurance[facility] cy Number: [id number] mary Date:2023-07-21 CARLA IRBYB: [id number] [place] [address] [facility] 04/26/2024 CARLA IRBYDOB: [place] [address]Kfj: (HP) (WP) Primary Insurance:BCBSPoli cy Number: [id number] mary Date:2023-07-21 CARLA IRBYDOB: [id number] [place] [address] [facility] 04/12/2024 CARLA IRBYDOB: [place] [address]Jdi: (HP) (WP) Primary Insurance:BCBSPoli cy Number: [id number] mary Date:2023-07-21 CARLA CAINB: [id number] [facility] [facility] 04/12/2024 CARLA IRBYDOB: [place] [address]Pxt: (HP) (WP) Primary Insurance:BCBSPoli cy Number: [id number] mary Date:2023-07-21 CARLA CAINB: [id number] [place] [address] [facility] 04/12/2024 CARLA IRBYDOB: [place] [address]Bzu: (HP) (WP) Primary Insurance:BCBSPoli cy Number: [id number] mary Date:2023-07-21 CARLA IRBYDOB: [id number] [place] [address] [facility] 03/29/2024 CARLA IRBYB: [place] [address]Seu: (HP) (WP) [facility] Number: [id number] mary Date:2024-01-19 CARLA CAINB: [id number] [place] [address] [facility] 03/28/2024 Carla Gutiérrez [facility] [place] [address]Ajn: (HP) Primary Insurance:[place] BC/BSPolicy Number: [id number] mary Date:2024-03-28 Carla CainB: [id number] [place], [place] [address] [address]Fqw: (HP) [facility] 03/28/2024 Secondary Insurance:Self PayPolicy Number: Effective Date:2024-03-28 [facility] 03/24/[address] [place] [address]Bay: (HP) Primary Insurance:[facility]/BSPolicy Number: [id number] mary Date:2024-03-24 Carla CainB: [id number] [place] [address]Egi: (HP) [facility] 03/24/2024 Secondary Insurance:Self PayPolicy Number: Effective Date:2024-03-24 [facility] 01/27/2024 CARLA CAINB: [facility] [place] [address]Uvk: (HP) Primary Insurance:BLUE ACCESS (PPO)Policy Number: [id number] mary Date:2020-04-04 - 2020-04-04 CARLA CAINB: [id number] [place] [address]Fro: (HP) (WP) [facility] 01/27/2024 Secondary Insurance:BLUE ACCESS (PPO)Policy Number: [id number] mary Date:2019-07-212023-11-18 CARLA CAINB: [id number] [place], [place] [address]Wql: (HP) (WP) [facility] 01/27/2024 Tertiary Insurance:[facility] HMO/PPO/TRUSTPolic y Number: [id number] mary Date:2023-07-21 CARLA CAINB: [id number] [place], [place] [address]Fae: (HP) (WP) [facility] 01/27/2024 CARLA CAINB: [place], [place] [address]Axb: (HP) Primary Insurance:BLUE ACCESS (PPO)Policy Number: [id number] mary Date:2020-04-042020-04-04 CARLA CAINB: [id number] [place], [place] [address]Veu: (HP) (WP) [facility] 01/27/2024 Secondary Insurance:BLUE ACCESS (PPO)Policy Number: [id number] mary Date:2019-07-212023-11-18 CARLA CAINB: [id number] [place], [place] [address]Bue: (HP) (WP) [facility] 01/27/2024 Tertiary Insurance:[facility] HMO/PPO/TRUSTPolic y Number: [id number] mary Date:2023-07-21 CARLA CAINB: [id number] [place], [place] [address]Hkn: (HP) (WP) [facility] SOCIAL HISTORY No Social History Records Found FAMILY HISTORY No Family History Records Found ADVANCE DIRECTIVES No Advanced Directives Records Found INFORMATION SOURCE DATE CREATED AUTHOR CECY CHAIREZ 01/25/2025 OHIP
[2025-01-25 07:54] LABS: Hematocrit 43.9 % (36.0-48.0); Hemoglobin 14.2 g/dL (12.0-16.0); Immature Granulocytes Abs Auto 0.03 10^3/uL (0.00-0.03); Immature Granulocytes Pct Auto 0.3 % (0.0-0.5); Lymphocytes Absolute Auto 2.4 10^3/uL (1.2-3.8); Mean Corpuscular HGB Conc 32.3 g/dL (29.9-35.2); Mean Corpuscular Hemoglobin 28.8 pg (26.7-34.0); Mean Corpuscular Volume 89.0 fL (81.0-99.0); Platelet Count 338 10^3/uL (150-450); Red Blood Count 4.93 10^6/uL (4.20-5.40); White Blood Count 9.7 10^3/uL (4.0-11.0)
[2025-01-25 09:52] LABS: Alanine Aminotransferase 29 U/L (14-59); Albumin Globulin Ratio 1.1; Albumin Level 3.5 g/dL (3.4-5.0); Alkaline Phosphatase 80 U/L (46-116); Anion Gap 14.1; Aspartate Amino Transferase 12 U/L (15-37); Blood Urea Nitrogen 16.0 mg/dL (7.0-18.0); Calcium 8.8 mg/dL (8.5-10.1); Carbon Dioxide 28.5 mmol/L (21.0-32.0); Chloride 108 mmol/L (98-107); Estimated GFR (African America >60 (>=60 mL/min/1.73m^2); Estimated GFR (Non-African Ame >60 (>=60 mL/min/1.73m^2); Globulin 3.1 g/dL; Glucose 97 mg/dL (74-106); Potassium 3.6 mmol/L (3.5-5.1); Sodium 147 mmol/L (136-145); Total Protein 6.6 g/dL (6.4-8.2)
== END 2025-01-25 07:29 | disposition home or self-care (01) ==
PROVIDERS: PCP Nurse Practitioner; Visit Provider Internal Medicine Rheumatology
DX: L40.9 Psoriasis, unspecified (principal); M19.90 Unspecified osteoarthritis, unspecified site; Z51.81 Encounter for therapeutic drug level monitoring
CPT/HCPCS: 36415; 80053; 85025; 85652; 86140